=== PATIENT | female | born 1960 | race African-American/Black ===

== ENCOUNTER 2017-04-01 21:06 | Observation (INO) | payer MEDICARE, MEDICAID ==
--- NOTE | 2017-04-01 21:45 | ER Document Report ---
ED Cardiac - General Chief Complaint: Shortness Of Breath Stated Complaint: CHEST PAIN/SHORT OF BREATH Time Seen by Provider: 04/01/17 21:30 Notes: Patient is a 56-year-old female comes emergency department for chief complaint of worsening shortness of breath, especially on exertion, and also for chest pain that has been intermittent but seemed slightly worse just prior to arrival. Patient was given 2 sublingual nitroglycerin and a nitroglycerin patch along with 324 mg of aspirin by EMS reportedly, patient reports that she got no longer has chest pain. Patient also states that she has had worsening lower extremity swelling and at least 10 pounds of weight gain over the past week. She denies fever, cough, bowel pain. Patient states she is on 40 mg of Lasix daily and a half of another diuretic that she cannot remember the name of. Patient had a cardiac catheterization 2 years ago, had stents in 2004 and 2005, used to see [facility] for cardiology but states she has not done this in a couple of years. TRAVEL OUTSIDE OF THE [place] IN LAST 30 DAYS: No - Related Data Allergies/Adverse Reactions: Penicillins Allergy (Verified 05/27/14 19:10) Home Medications: Current Home Medications Alogliptin Rock/Pioglitazone [Oseni 25-30 mg Tablet] 1 tab PO DAILY 04/02/17 [ History] Insulin NPL/Insulin Lispro [Humalog Mix 75-25 Kwikpen] 60 units SUBCUT BID 04/02 [History] Oxycodone HCl/Acetaminophen [Oxycodon-Acetaminophen 7.5-325] 1 tab PO TID PRN [History] RX: Cyclobenzaprine HCl 10 mg PO TID 04/02/17 [History] RX: Spironolactone 12.5 mg PO DAILY 04/02/17 [History] Past Medical History - General Information source: Patient - Social History Smoking Status: Never Smoker Frequency of alcohol use: None Drug Abuse: None Lives with: Family Family History: Reviewed & Not Pertinent - Past Medical History Cardiac Medical History: Reports: Hx Congestive Heart Failure, Hx Heart Attack - HAD 2 IN 2004, Hx Hypercholesterolemia - SINCE 2001, Hx Hypertension - SINCE LATE Pulmonary Medical History: Reports: Hx Asthma, Hx Bronchitis - HAD OVER 10 YRS, Hx COPD Endocrine Medical History: Reports: Hx Diabetes Mellitus Type 2 Psychiatric Medical History: Reports: Hx Depression - IN 1990'S OVER IT NOW Past Surgical History: Reports: Hx Abdominal Surgery - C SECTION OCT 1997, Hx Cardiac Catheterization - MAY 2010, Hx Tonsillectomy - REMOVE AT AGE 12. Denies: Hx Adenoidectomy - Immunizations Immunizations up to date: No Hx Diphtheria, Pertussis, Tetanus Vaccination: No Review of Systems - Review of Systems Constitutional: No symptoms reported EENT: No symptoms reported Cardiovascular: See HPI Respiratory: See HPI Gastrointestinal: No symptoms reported Genitourinary: No symptoms reported Female Genitourinary: No symptoms reported Musculoskeletal: No symptoms reported Skin: No symptoms reported Hematologic/Lymphatic: No symptoms reported Neurological/Psychological: No symptoms reported Physical Exam - Vital signs Vitals: Temp Pulse Resp BP Pulse Ox 98.2 F 93 22 H 189/125 H 95 04/01/17 21:40 04/01/17 21:40 04/01/17 21:40 04/01/17 21:40 04/01/17 21:40 Interpretation: Normal - General General appearance: Appears well In distress: None - HEENT Head: Normocephalic, Atraumatic Eyes: Normal Conjunctiva: Normal Extraocular movements intact: Yes Eyelashes: Normal Pupils: PERRL Sinus: Normal Nasal: Normal Mouth/Lips: Normal Mucous membranes: Normal Pharynx: Normal Neck: Normal - Respiratory Respiratory status: Tachypnea. No: Labored Chest status: Nontender Breath sounds: Decreased air movement, Other - A few scattered coarse breath sounds Chest palpation: Normal - Cardiovascular Rhythm: Regular. No: Tachycardia Heart sounds: Normal auscultation, S1 appreciated, S2 appreciated Murmur: No - Abdominal Inspection: Normal Distension: No distension Bowel sounds: Normal Tenderness: Nontender. No: Tender, Guarding Organomegaly: No organomegaly - Back Back: Normal, Nontender. No: Tender - Extremities General upper extremity: Normal inspection, Nontender, Normal color, Normal ROM , Normal temperature General lower extremity: Edema - Bilateral 2+ lower extremity pitting edema, normal distal pulses and capillary refill, unremarkable examination otherwise - Neurological Neuro grossly intact: Yes Cognition: Normal Orientation: AAOx4 [place] Coma Scale Eye Opening: Spontaneous [place] Coma Scale Verbal: Oriented [place] Coma Scale Motor: Obeys Commands Harsh Coma Scale Total: 15 Speech: Normal Cranial nerves: Normal Cerebellar coordination: Normal Motor strength normal: LUE, RUE, LLE, RLE Additional motor exam normals: Equal director of purchasing Sensory: Normal - Psychological Associated symptoms: Normal affect, Normal mood - Skin Skin Temperature: Warm Skin Moisture: Dry Skin Color: Normal Course - Re-evaluation Re-evalutation: Patient with lower extremity edema bilaterally, mostly clear lungs with a few coarse breath sounds, and she is hypertensive. No fever, tachycardia, leukocytosis. Clinical picture is most likely CHF exacerbation. BNP is not elevated, chest x-ray shows what appears to be pneumonia with no evidence of pulmonary vascular congestion. I did get patient up to have her stand and walk, she immediately became tachypneic with labored pursed lip breathing. Patient states this is not her baseline. Giving dose of Levaquin, Lasix, discussed with Dr. Gonzalez, will discuss patient's provider. Discussed with Dr. Brown, patient will be admitted to the hospital. - Vital Signs Vital signs: Temp Pulse Resp BP Pulse Ox 97.8 F 62 20 140/84 H 95 04/02/17 02:24 04/02/17 02:24 04/02/17 02:24 04/02/17 02:24 04/02/17 02:24 - Laboratory Result Diagrams: 04/01/17 21:51 04/01/17 21:51 Laboratory results interpreted by me: 04/01/17 04/01/17 04/01/17 21:32 21:51 21:51 RDW 14.1 H Sodium 145.3 H Carbon Dioxide 31 H Glucose 149 H Direct Bilirubin 0.5 H Alkaline Phosphatase 127 H Urine Protein 100 H Discharge - Discharge Clinical Impression: Shortness of breath, Bilateral lower extremity edema Chest pain Qualifiers: Chest pain type: unspecified Qualified Code(s): R07.9 - Chest pain, unspecified Pneumonia Qualifiers: Pneumonia type: due to unspecified organism Laterality: right Lung location: lower lobe of lung Qualified Code(s): J18.1 - Lobar pneumonia, unspecified organism Disposition: ADMITTED INPATIENT Admitting Provider: Hospitalist Unit Admitted: Telemetry
[2017-04-01] MEDS ORDERED: METOPROLOL SUCCINATE 50 MG TAB.SR.24H PO ONE (22:01)
[2017-04-01 22:02] LABS: APPEARANCE,URINE SLIGHTLY-CLOUDY; BILIRUBIN,URINE NEGATIVE (NEGATIVE); GLUCOSE, URINE NEGATIVE (NEGATIVE); KETONES,URINE NEGATIVE (NEGATIVE); LEUKOCYTE ESTERASE,URINE NEGATIVE (NEGATIVE); NITRITE,URINE NEGATIVE (NEGATIVE); PROTEIN,URINE 100 mg/dL (NEGATIVE); URINE SPECIFIC GRAVITY 1.013; UROBILINOGEN,URINE NEGATIVE mg/dL (<2.0)
[2017-04-01] MEDS ORDERED: CLONIDINE HCL 0.2 MG TABLET PO ONE (22:02)
[2017-04-01] MEDS ORDERED: AMLODIPINE BESYLATE 10 MG TABLET PO ONE (22:02)
[2017-04-01 22:07] LABS: ABSOLUTE EOSINOPHILS # (AUTO) 0.2 10^3/uL (0.0-0.6); ABSOLUTE LYMPHOCYTES (AUTO) 1.1 10^3/uL (0.5-4.7); ABSOLUTE MONOCYTES (AUTO) 0.5 10^3/uL (0.1-1.4); ABSOLUTE NEUT (AUTO) 6.5 10^3/uL (1.7-8.2); BASOPHILS % (AUTO) 0.5 % (0-2); EOSINOPHILS % (AUTO) 2.7 % (0-6); HEMATOCRIT 40.9 % (36.0-47.0); HEMOGLOBIN 13.5 g/dL (12.0-15.5); HGB HCT DIFFERENCE -0.4; LYMPHOCYTES % (AUTO) 13.3 % (13-45); MEAN CORPUSCULAR HEMOGLOBIN 30.6 pg (27.0-33.4); MEAN CORPUSCULAR HGB CONC 32.9 g/dL (32.0-36.0); MEAN CORPUSCULAR VOLUME 93 fl (80-97); MONOCYTES % (AUTO) 5.5 % (3-13); RED BLOOD COUNT 4.41 10^6/uL (3.72-5.28); RED CELL DISTRIBUTION WIDTH 14.1 % (11.5-14.0); WHITE BLOOD COUNT 8.3 10^3/uL (4.0-10.5)
[2017-04-01 22:26] LABS: ALANINE AMINOTRANSFERASE 37 U/L (9-52); ALKALINE PHOSPHATASE 127 U/L (38-126); ANION GAP 10 (5-19); ASPARTATE AMINO TRANSFERASE 20 U/L (14-36); BILIRUBIN,DIRECT 0.5 mg/dL (0.0-0.4); BILIRUBIN,TOTAL 0.7 mg/dL (0.2-1.3); BLOOD UREA NITROGEN 14 mg/dL (7-20); CALCIUM 10.1 mg/dL (8.4-10.2); CARBON DIOXIDE 31 mmol/L (22-30); CHLORIDE 104 mmol/L (98-107); CREATINE KINASE 48 U/L (30-135); CREATININE RESULT 0.74 mg/dL (0.52-1.25); GLUCOSE 149 mg/dL (75-110); POTASSIUM 4.2 mmol/L (3.6-5.0); SODIUM 145.3 mmol/L (137-145); TOTAL PROTEIN 7.6 g/dL (6.3-8.2)
[2017-04-01 22:41] LABS: TROPONIN I < 0.012 ng/mL
[2017-04-01] MEDS ORDERED: LEVOFLOXACIN 750 MG/D5W RTU 150 ML IV ONE (22:52)
[2017-04-01] MEDS ORDERED: FUROSEMIDE INJ/PF 40 MG/4 ML SDV IV ONE (23:09)
[2017-04-02] MEDS ORDERED: IPRATROPIUM/ALBUTEROL 0.5-2.5 MG/3 ML AMPUL NEB PRN (02:34)
[2017-04-02] MEDS ORDERED: DEXTROSE 40% GEL 15 GM TUBE PO PRN (02:36)
[2017-04-02] MEDS ORDERED: DEXTROSE 50%-WATER SYRINGE 25 GM/50 ML DOSE IV PRN (02:36)
[2017-04-02] MEDS ORDERED: GLUCAGON,HUMAN RECOMB 1 MG INJ IM PRN (02:36)
[2017-04-02] MEDS ORDERED: DEXTROSE 40% GEL 15 GM TUBE X 2 PO PRN (02:36)
[2017-04-02] MEDS ORDERED: DEXTROSE 50%-WATER SYRINGE 12.5 GM/25 ML DOSE IV PRN (02:36)
[2017-04-02] MEDS ORDERED: NITROGLYCERIN 0.4 MG/TAB 25 TAB/BOTTLE SL PRN (04:18)
[2017-04-02] MEDS ORDERED: OXYCODONE HCL IR 5 MG TABLET PO PRN (04:32)
[2017-04-02] MEDS: CYCLOBENZAPRINE HCL 10 MG TABLET PO SCH ×3 (06:39→21:46)
[2017-04-02] MEDS: METFORMIN HCL 500 MG TABLET PO SCH ×2 (08:27→17:59)
[2017-04-02] MEDS ORDERED: [UNRECOGNIZED DRUG - REMARK] PO SCH (10:00)
[2017-04-02] MEDS ORDERED: INSULIN LISPRO PROTAMINE SUBCUT SCH (10:00)
[2017-04-02] MEDS ORDERED: (PENDING PHARMACY ID) (Alogliptin Benz/Pioglitazone [Oseni 25-30 Mg Tablet] 1 TAB) PO SCH (10:00)
[2017-04-02] MEDS ORDERED: INSULIN LISPRO SUBCUT SCH (10:00)
[2017-04-02] MEDS: GLIPIZIDE XL 5 MG TAB.ER.24 PO SCH ×2 (10:35→17:58)
[2017-04-02] MEDS: ASPIRIN 325 MG TABLET PO SCH (10:35)
[2017-04-02] MEDS: ISOSORBIDE DINITRATE 20 MG TABLET PO SCH ×2 (10:36→21:46)
[2017-04-02] MEDS: PRENATAL VITAMIN W-O CA NO5/FE FUMARATE/FA CAPSULE PO SCH (10:36)
[2017-04-02] MEDS: METOPROLOL SUCCINATE 50 MG TAB.SR.24H PO SCH ×2 (10:36→21:46)
[2017-04-02] MEDS: CLONIDINE HCL 0.2 MG TABLET PO SCH ×2 (10:36→21:46)
[2017-04-02] MEDS: SPIRONOLACTONE 25 MG TABLET PO SCH (10:37)
[2017-04-02] MEDS: CLOPIDOGREL BISULFATE 75 MG TABLET PO SCH (10:37)
[2017-04-02] MEDS: AMLODIPINE BESYLATE 10 MG TABLET PO SCH (10:37)
[2017-04-02] MEDS: PREGABALIN 100 MG CAPSULE PO SCH ×3 (10:37→17:59)
--- NOTE | 2017-04-02 13:14 | EKG REPORT ---
SEVERITY:- BORDERLINE ECG - SINUS RHYTHM BORDERLINE PROLONGED QT INTERVAL : Confirmed by: Jennifer Dorsey 02-Apr-2017 13:14:07
[2017-04-02 13:27] LABS: HEMATOCRIT 39.3 % (36.0-47.0); HEMOGLOBIN 12.7 g/dL (12.0-15.5); HGB HCT DIFFERENCE -1.2; MEAN CORPUSCULAR HEMOGLOBIN 30.5 pg (27.0-33.4); MEAN CORPUSCULAR HGB CONC 32.3 g/dL (32.0-36.0); MEAN CORPUSCULAR VOLUME 95 fl (80-97); RED BLOOD COUNT 4.15 10^6/uL (3.72-5.28); RED CELL DISTRIBUTION WIDTH 14.1 % (11.5-14.0); WHITE BLOOD COUNT 6.8 10^3/uL (4.0-10.5)
[2017-04-02 13:31] LABS: PROTHROMBIN TIME 12.9 SEC (11.4-15.4)
[2017-04-02 13:32] LABS: PARTIAL THROMBOPLASTIN TIME 27.8 SEC (23.5-35.8)
[2017-04-02] MEDS ORDERED: ENOXAPARIN SODIUM INJ 40 MG/0.4 ML DISP.SYRIN SUBCUT ONE (14:00)
[2017-04-02] MEDS: NORMAL SALINE 250 ML with FUROSEMIDE 250 MG IV PRN ×2 (15:06)
[2017-04-02] MEDS: INSULIN REG, HUMAN 100 UNIT/ML 3 ML VIAL (PYX) SUBCUT PRN (17:58)
[2017-04-02 18:26] LABS: URINE CREATININE 45.6 mg/dL (15-278); URINE PROTEIN 10.5 mg/dL (<12)
[2017-04-02] MEDS ORDERED: LIDOCAINE 1% INJ-PF (10 MG/ML) 30 ML SDV INJ ONE (20:00)
--- NOTE | 2017-04-02 21:43 | OPERATIVE REPORT E ---
Operative Report NAME: JACKIE CRUZ : 1960 AGE: 56Y DATE OF SURGERY: 04/02/2017 ROOM: 414 PREOPERATIVE DIAGNOSIS: Poor veins for IV access. Congestive heart failure. POSTOPERATIVE DIAGNOSIS: Poor veins for IV access. Congestive heart failure. OPERATION: Placement of right internal jugular vein triple lumen catheter under ultrasound guidance. SURGEON: IGOR WINKLER M.D. ANESTHESIA: Local. INDICATION: This is a 56-year-old female, admitted for CHF and needed IV medications for diuresis. She is quite obese and unable to get peripheral veins for IV access. DESCRIPTION OF PROCEDURE: The patient was placed in slight Trendelenburg position and the right neck prepped and draped in the usual sterile fashion. With the use of ultrasound, right internal jugular vein was then identified. Local anesthesia infiltrated along the right neck through the path of the internal jugular vein. The right internal jugular vein was then punctured and guidewire passed through the needle into the superior vena cava. Needle was removed and entrance site was enlarged with an 11 blade. A dilator was then passed through the guidewire through the insertion site. Next, dilator was removed and triple lumen catheter inserted through the guidewire towards the area of the superior vena cava. About 17 cm of the guidewire was placed through. The 3 ports aspirated blood easily and injected saline easily. Next, the catheter was anchored to the skin with 3-0 silk. A Biopatch was then placed at the insertion site and a transparent dressing was then placed over the catheter and over the Biopatch. The patient tolerated the procedure well. A chest x-ray will be obtained for placement. DICTATING PHYSICIAN: IGOR WINKLER M.D. [id number] PHY#: [id number] ID: [id number] JOB#: [id number] ACCT: [id number] cc:IGOR WINKLER M.D. >
[2017-04-02] MEDS: ATORVASTATIN CALCIUM 40 MG TABLET PO SCH (21:46)
[2017-04-02] MEDS ORDERED: LEVOFLOXACIN 750 MG/D5W RTU 750 MG/150 ML RTUPB IV SCH (22:00)
[2017-04-02] MEDS: LEVOFLOXACIN 750 MG/D5W RTU 750 MG/150 ML RTUPB IV SCH (22:26)
[2017-04-02] MEDS: OXYCODONE-ACETAMINOPHEN 5-325 MG TABLET PO PRN (22:28)
[2017-04-03] MEDS: CYCLOBENZAPRINE HCL 10 MG TABLET PO SCH ×3 (06:29→21:39)
[2017-04-03] MEDS: ENOXAPARIN SODIUM INJ 40 MG/0.4 ML DISP.SYRIN SUBCUT SCH (07:46)
[2017-04-03] MEDS: NORMAL SALINE 250 ML with FUROSEMIDE 250 MG IV PRN ×4 (07:47→21:04)
[2017-04-03] MEDS: METFORMIN HCL 500 MG TABLET PO SCH ×2 (07:47→17:10)
[2017-04-03] MEDS: OXYCODONE-ACETAMINOPHEN 5-325 MG TABLET PO PRN ×2 (08:02→23:28)
[2017-04-03] MEDS: ASPIRIN 325 MG TABLET PO SCH (10:02)
[2017-04-03] MEDS: PRENATAL VITAMIN W-O CA NO5/FE FUMARATE/FA CAPSULE PO SCH (10:02)
[2017-04-03] MEDS: PREGABALIN 100 MG CAPSULE PO SCH ×3 (10:02→17:10)
[2017-04-03] MEDS: ISOSORBIDE DINITRATE 20 MG TABLET PO SCH ×2 (10:03→21:39)
[2017-04-03] MEDS: AMLODIPINE BESYLATE 10 MG TABLET PO SCH (10:03)
[2017-04-03] MEDS: SPIRONOLACTONE 25 MG TABLET PO SCH (10:03)
[2017-04-03] MEDS: GLIPIZIDE XL 5 MG TAB.ER.24 PO SCH ×2 (10:03→17:10)
[2017-04-03] MEDS: CLOPIDOGREL BISULFATE 75 MG TABLET PO SCH (10:04)
[2017-04-03] MEDS: CLONIDINE HCL 0.2 MG TABLET PO SCH ×2 (10:04→21:39)
[2017-04-03] MEDS: METOPROLOL SUCCINATE 50 MG TAB.SR.24H PO SCH ×2 (10:04→21:39)
[2017-04-03 11:54] LABS: ANION GAP 11 (5-19); BLOOD UREA NITROGEN 18 mg/dL (7-20); CALCIUM 10.2 mg/dL (8.4-10.2); CARBON DIOXIDE 35 mmol/L (22-30); CHLORIDE 97 mmol/L (98-107); CREATININE RESULT 0.92 mg/dL (0.52-1.25); GLUCOSE 165 mg/dL (75-110); POTASSIUM 3.6 mmol/L (3.6-5.0); SODIUM 142.6 mmol/L (137-145)
[2017-04-03] MEDS: INSULIN REG, HUMAN 100 UNIT/ML 3 ML VIAL (PYX) SUBCUT PRN (12:11)
--- NOTE | 2017-04-03 14:31 | PDOC H&P ---
History of Present Illness Admission Date/PCP: 04/02/17 02:23 HENNA VAZQUEZ MD History of Present Illness: JACKIE CRUZ is a 56 year old female with history of type 2 diabetes mellitus, morbid obesity with body mass index 56, she came to the emergency room because of cough shortness of breath and chest pain. She stated that many members of household have pneumonia. She is concerned that she may have pneumonia, she was seen and evaluated in the emergency room, chest x-ray was done, it showed a new patchy right lower lobe airspace disease concerning for pneumonia. The other problem with this patient is the anasarca, she has tremendous retention of fluid most likely related to the obesity as indicated a body mass index is 56. Past Medical History Cardiac Medical History: Reports: Myocardial Infarction - HAD 2 IN 2004, Hyperlipidema - SINCE 2001, Hypertension - SINCE LATE Pulmonary Medical History: Reports: Asthma, Bronchitis - HAD OVER 10 YRS, Chronic Obstructive Pulmonary Disease (COPD) Endocrine Medical History: Reports: Diabetes Mellitus Type 2, Obesity Psychiatric Medical History: Reports: Depression - IN OVER IT NOW Past Surgical History Past Surgical History: Reports: Cardiac Catheterization - MAY 2010, Tonsillectomy - REMOVE AT AGE 12 Social History Lives with: Family Smoking Status: Former Smoker Number of Years Smokin Frequency of Alcohol Use: Occasional Hx Recreational Drug Use: No Hx Prescription Drug Abuse: No Family History Family History: Reviewed & Not Pertinent Parental Family History Reviewed: Yes Children Family History Reviewed: Yes Sibling(s) Family History Reviewed.: Yes Medication/Allergy Home Medications: Glipizide [Glipizide ER] 10 mg PO BID 03/30/12 Metformin HCl [Glucophage 1000 mg Tablet] 1,000 mg PO BIDACBSP PRN 03/30/12 Nitroglycerin [Nitrostat 0.4 mg (1/150 Gr) Tabs 25/Bottle] 0.4 mg SL Q8H PRN Aspirin [Aspirin 325 mg Tablet] 325 mg PO DAILY 05/27/14 Clonidine HCl [Catapres 0.2 mg Tablet] 0.2 mg PO Q12 05/27/14 Clopidogrel Bisulfate [Plavix 75 mg Tablet] 75 mg PO DAILY 05/27/14 Isosorbide Dinitrate [Isordil Titradose 20 mg Tablet] 20 mg PO Q12 05/27/14 Metoprolol Succinate 50 mg PO Q12 05/27/14 Alogliptin Rock/Pioglitazone [Oseni 25-30 mg Tablet] 1 tab PO DAILY 04/02/17 Amlodipine Besylate [Norvasc 10 mg Tablet] 10 mg PO DAILY 04/02/17 Cyclobenzaprine HCl 10 mg PO TID 04/02/17 Furosemide [Lasix] 40 mg PO DAILY 04/02/17 Insulin NPL/Insulin Lispro [Humalog Mix 75-25 Kwikpen] 60 units SUBCUT BID 04/02 Lisinopril [Prinivil 40 mg Tablet] 40 mg PO DAILY 04/02/17 Oxycodone HCl/Acetaminophen [Oxycodon-Acetaminophen 7.5-325] 1 tab PO TID PRN Pregabalin [Lyrica 100 Mg Capsule] 100 mg PO Q12 04/02/17 Spironolactone 12.5 mg PO DAILY 04/02/17 Allergies/Adverse Reactions: Penicillins Allergy (Verified 05/27/14 19:10) Review of Systems Constitutional: PRESENT: chills, fever(s) Eyes: ABSENT: visual disturbances Ears: ABSENT: hearing changes Cardiovascular: ABSENT: chest pain, dyspnea on exertion, edema, orthropnea, palpitations Respiratory: PRESENT: cough Gastrointestinal: ABSENT: abdominal pain, constipation, diarrhea, hematemesis, hematochezia, nausea, vomiting Genitourinary: ABSENT: dysuria, hematuria Musculoskeletal: ABSENT: joint swelling Integumentary: ABSENT: rash, wounds Neurological: ABSENT: abnormal gait, abnormal speech, confusion, dizziness, focal weakness, syncope Psychiatric: ABSENT: anxiety, depression, homidical ideation, suicidal ideation Endocrine: ABSENT: cold intolerance, heat intolerance, menstrual abnormalities, polydipsia, polyuria Hematologic/Lymphatic: ABSENT: easy bleeding, easy bruising, lymphadenopathy Physical Exam Vital Signs: Temp Pulse Resp BP Pulse Ox 98.2 F 80 24 H 146/77 H 95 04/03/17 08:07 04/03/17 08:07 04/03/17 08:07 04/03/17 08:07 04/03/17 04:00 Intake & Output 04/02/17 04/03/17 04/04/17 06:59 06:59 06:59 Intake Total 1352 Output Total 1200 Balance 152 Weight 145.15 kg 163.8 kg General appearance: PRESENT: no acute distress, well-developed, well-nourished Head exam: PRESENT: atraumatic, normocephalic Eye exam: PRESENT: conjunctiva pink, EOMI, PERRLA. ABSENT: scleral icterus Ear exam: PRESENT: normal external ear exam Mouth exam: PRESENT: moist, tongue midline Neck exam: PRESENT: full ROM. ABSENT: carotid bruit, JVD, lymphadenopathy, thyromegaly Cardiovascular exam: PRESENT: RRR, +S1, +S2 Vascular exam: PRESENT: normal capillary refill GI/Abdominal exam: PRESENT: normal bowel sounds, soft, other - Obese Rectal exam: PRESENT: deferred Extremities exam: PRESENT: pedal edema Neurological exam: PRESENT: alert, awake, oriented to person, oriented to place , oriented to time, oriented to situation, CN II-XII grossly intact Psychiatric exam: PRESENT: appropriate affect, normal mood Skin exam: PRESENT: dry, intact, warm Results Laboratory Results: 04/02/17 13:10 04/03/17 10:50 04/03/17 10:50 Sodium 142.6 Potassium 3.6 Chloride 97 L Carbon Dioxide 35 H Anion Gap 11 BUN 18 Creatinine 0.92 Est GFR ( Amer) > 60 Est GFR (Non-Af Amer) > 60 Glucose 165 H Calcium 10.2 04/02/17 06:40 Nasophary (Mrsa Only) MRSA Surveillance Culture - Final NO MRSA RECOVERED Impressions: Chest X-Ray 04/02/17 21:17 IMPRESSION: 1. CENTRAL LINE DESCRIBED. NO PNEUMOTHORAX. 2. CARDIOMEGALY. SLIGHT WORSENING OF THE PATCHY INFILTRATE IN THE RIGHT LUNG BASE. Assessment & Plan - Diagnosis (1) Right lower lobe pneumonia Qualifiers: Pneumonia type: due to unspecified organism Qualified Code(s): J18.1 - Lobar pneumonia, unspecified organism Is this a current diagnosis for this admission?: YesPlan: She will be treated with IV antibiotic to cover community-acquired pneumonia pathogens, she has penicillin allergy, she will be treated with intravenous Levaquin this week, most community-acquired pneumonia pathogens. (2) Anasarca Is this a current diagnosis for this admission?: YesPlan: The anasarca is related to the obesity there is no evidence of CHF no evidence of liver failure, nephrotic syndrome or thyroid disease to explain the extreme retention of fluid other than body weight, she be treated with furosemide infusion to help mobilize the fluid but ultimately the most effective and definitive way to treat this is weight loss. She was referred to the surgeon outpatient to be considered for weight loss surgery (3) Diabetes mellitus type 2 in obese Is this a current diagnosis for this admission?: Yes (4) History of coronary artery disease Is this a current diagnosis for this admission?: Yes (5) Obesity, morbid, BMI 50 or higher Is this a current diagnosis for this admission?: Yes (6) Obstructive sleep apnea hypopnea, moderate Is this a current diagnosis for this admission?: Yes
--- NOTE | 2017-04-03 14:35 | PDOC PROGRESS REPORT ---
Subjective Progress Note for:: 04/03/17 Subjective:: She was seen by the bedside, presently on furosemide infusion, yesterday IV access was a challenge and central line was inserted by the surgeon. She is requesting a Jovel catheter but I indicated to her that is not a good idea because of risk of UTI. She is admitted for observation she has been diuresing very well with the furosemide infusion we will continue this for another day Physical Exam Vital Signs: Temp Pulse Resp BP Pulse Ox 98.2 F 78 24 H 146/77 H 95 04/03/17 08:07 04/03/17 14:00 04/03/17 08:07 04/03/17 08:07 04/03/17 04:00 Intake & Output 04/02/17 04/03/17 04/04/17 06:59 06:59 06:59 Intake Total 1352 Output Total 1200 Balance 152 Weight 145.15 kg 163.8 kg General appearance: PRESENT: no acute distress, well-developed, well-nourished Head exam: PRESENT: atraumatic, normocephalic Eye exam: PRESENT: PERRLA Neck exam: PRESENT: full ROM Respiratory exam: PRESENT: clear to auscultation michelle Cardiovascular exam: PRESENT: RRR, +S1, +S2 Vascular exam: PRESENT: normal capillary refill GI/Abdominal exam: PRESENT: normal bowel sounds, soft Rectal exam: PRESENT: deferred Neurological exam: PRESENT: alert, awake, oriented to person, oriented to place , oriented to time, oriented to situation, CN II-XII grossly intact Psychiatric exam: PRESENT: appropriate affect, normal mood Skin exam: PRESENT: dry, intact, warm Results Laboratory Results: 04/02/17 13:10 04/03/17 10:50 04/03/17 10:50 Sodium 142.6 Potassium 3.6 Chloride 97 L Carbon Dioxide 35 H Anion Gap 11 BUN 18 Creatinine 0.92 Est GFR ( Amer) > 60 Est GFR (Non-Af Amer) > 60 Glucose 165 H Calcium 10.2 04/02/17 06:40 Nasophary (Mrsa Only) MRSA Surveillance Culture - Final NO MRSA RECOVERED Impressions: Chest X-Ray 04/02/17 21:17 IMPRESSION: 1. CENTRAL LINE DESCRIBED. NO PNEUMOTHORAX. 2. CARDIOMEGALY. SLIGHT WORSENING OF THE PATCHY INFILTRATE IN THE RIGHT LUNG BASE. Assessment & Plan - Diagnosis (1) Right lower lobe pneumonia Qualifiers: Pneumonia type: due to unspecified organism Qualified Code(s): J18.1 - Lobar pneumonia, unspecified organism Is this a current diagnosis for this admission?: YesPlan: She will continue IV antibiotic (2) Anasarca Is this a current diagnosis for this admission?: YesPlan: Continue IV furosemide infusion (3) Diabetes mellitus type 2 in obese Is this a current diagnosis for this admission?: Yes (4) History of coronary artery disease Is this a current diagnosis for this admission?: Yes (5) Obesity, morbid, BMI 50 or higher Is this a current diagnosis for this admission?: Yes (6) Obstructive sleep apnea hypopnea, moderate Is this a current diagnosis for this admission?: Yes
[2017-04-03] MEDS: LEVOFLOXACIN 750 MG/D5W RTU 750 MG/150 ML RTUPB IV SCH (21:38)
[2017-04-03] MEDS: ATORVASTATIN CALCIUM 40 MG TABLET PO SCH (21:39)
[2017-04-04] MEDS: CYCLOBENZAPRINE HCL 10 MG TABLET PO SCH ×3 (05:34→21:58)
[2017-04-04] MEDS: ASPIRIN 325 MG TABLET PO SCH (10:31)
[2017-04-04] MEDS: SPIRONOLACTONE 25 MG TABLET PO SCH (10:32)
[2017-04-04] MEDS: PRENATAL VITAMIN W-O CA NO5/FE FUMARATE/FA CAPSULE PO SCH (10:32)
[2017-04-04] MEDS: PREGABALIN 100 MG CAPSULE PO SCH ×3 (10:32→17:44)
[2017-04-04] MEDS: ISOSORBIDE DINITRATE 20 MG TABLET PO SCH ×2 (10:33→21:59)
[2017-04-04] MEDS: METOPROLOL SUCCINATE 50 MG TAB.SR.24H PO SCH ×2 (10:33→21:57)
[2017-04-04] MEDS: METFORMIN HCL 500 MG TABLET PO SCH ×2 (10:33→17:44)
[2017-04-04] MEDS: CLONIDINE HCL 0.2 MG TABLET PO SCH ×2 (10:34→21:58)
[2017-04-04] MEDS: ENOXAPARIN SODIUM INJ 40 MG/0.4 ML DISP.SYRIN SUBCUT SCH (10:34)
[2017-04-04] MEDS: AMLODIPINE BESYLATE 10 MG TABLET PO SCH (10:34)
[2017-04-04] MEDS: GLIPIZIDE XL 5 MG TAB.ER.24 PO SCH ×2 (10:34→17:45)
[2017-04-04] MEDS: CLOPIDOGREL BISULFATE 75 MG TABLET PO SCH (10:34)
--- NOTE | 2017-04-04 11:24 | Physician Advisory Note ---
Physician Advisor ProgressNote .: [facility], I have reviewed the medical record for this patient. Physician Advisor Statement: Possible documentation opportunities if attending agrees: 1. "RLL Pneumonia, suspect ____" [gram-positive? gram-negative? - has COPD & DM-2, so could have gram-neg ...] - "CAP" isn't specific enough type for coding. 2. "Hypertensive urgency, resolved" [vs "Hypertensive emergency with associated CP/SOB [+acute CHF?], resolved"] 3. "acute hypernatremia, suspect due to , now resolved" 4. ? - "Acute hypercarbic respiratory failure on arrival, w/bicarb 31, tachypnea w/labored pursed lip breathing with minimal ambulation in ED even after tx" 5. "chronic __ CHF" [systolic? diastolic? both? ...] 6. Medical necessity: Please document explicitly why pt needed to stay for continued tx in hospital on 04/03 instead of going home then - pt not yet back to baseline? b/c of continued tachypnea? still high risk of worsening resp status/CHF exacerb? waiting for another day on cx.s? concerned about I/Os & wts? ... 7. H&P is missing lung exam. As always, if concerned about any unstable VS or abnormal labs, please comment on them - what bad things they might indicate, why they concern you - & note what doing about them. Please also document each day the potential clinical problems you are concerned could occur if pt not kept in hospital for tx at this time. (These points are shea - if present in each note, attending's status decision should be sufficiently supported.) Discussion: 56yo female w/ chronic co-morbidities including chronic __ CHF, HTN, HLD, CAD/ stents, asthma, COPD, DM-2, obesity morbid, ELLIS/CPAP - presented 04/01 to ED w/CP & SOB worsening, 10# wt gain/1wk, increasing BLE edema, recent exposure to others w/PNA. EMS gave 2 SL NTG, NTPatch, ASA -> CP resolved. (+) BP still 189/125 on arrival even after all the NTG, w/HR 90s, RR22. Na 145.3, bicarb 31, Cr 0.74, glc 149. ED gave Amlodipine, clonidine, Lasix, Levaquin, metoprolol, O2. Attending ordered Lasix gtt, ISDN, IV Levaquin, Aldactone, Duonebs prn, F/u labs , CPAP, O2. Status: Medicare pt w/RLL PNA, concerning co-morbidities that increase risk for morbidity & mortality including COPD/asthma, chronic __ CHF, acute hypertensive crisis (HTN urg or emerg), CAD, ELLIS, morbid obesity, anasarca, with possible acute hypercarbic resp failure, labored breathing in ED/continued worse than baseline even after tx in ED. On 04/03, pt w/ wt documented as 164, nearly 20 pounds greater than on admission , with documented I/Os appearing net (+), not net (-), no indication of unmeasured voids - but attending documented pt "diuresing very well", so I/Os & wts may not be accurate? On 04/04, pt documented to have 4 unmeasured voids, no calculated I/Os so far. Even after 2 MNs in hospital undergoing tx, attending still felt on 04/03 that pt needed continued IV Lasix diuresis for another day. Pt was still tachypneic to 24 at times that AM so she did not yet have stable VS. Tx & monitoring in inpatient hospital setting medically reasonable & necessary to protect pt's health, safety, & medical condition. Appropriate for Inpt status. Thanks for your help with documentation accuracy/specificity improvement! Sapna Almendarez MD [facility] Physician Advisor, Fellow of Hospital Medicine
[2017-04-04] MEDS: OXYCODONE-ACETAMINOPHEN 5-325 MG TABLET PO PRN ×2 (13:26→21:56)
[2017-04-04] MEDS: NORMAL SALINE 250 ML with FUROSEMIDE 250 MG IV PRN ×2 (13:32)
[2017-04-04 21:24] LABS: ANION GAP 9 (5-19); BLOOD UREA NITROGEN 22 mg/dL (7-20); CALCIUM 9.1 mg/dL (8.4-10.2); CARBON DIOXIDE 33 mmol/L (22-30); CHLORIDE 101 mmol/L (98-107); CREATININE RESULT 0.85 mg/dL (0.52-1.25); GLUCOSE 58 mg/dL (75-110); SODIUM 143.1 mmol/L (137-145)
[2017-04-04 21:26] LABS: POTASSIUM 2.8 mmol/L (3.6-5.0)
[2017-04-04] MEDS ORDERED: CLOTRIMAZOLE 10 MG TROCHE PO ONE (21:45)
[2017-04-04] MEDS: ATORVASTATIN CALCIUM 40 MG TABLET PO SCH (21:55)
[2017-04-04] MEDS ORDERED: NYSTATIN TOPICAL POWDER 15 GM TP SCH (22:00)
[2017-04-04] MEDS ORDERED: LEVOFLOXACIN 750 MG TABLET PO SCH (22:00)
[2017-04-05] MEDS: POTASSIUM CHLORIDE 10 MEQ TABLET.SA PO SCH ×3 (00:05→08:19)
[2017-04-05] MEDS: CYCLOBENZAPRINE HCL 10 MG TABLET PO SCH ×2 (06:35→14:42)
[2017-04-05] MEDS: OXYCODONE-ACETAMINOPHEN 5-325 MG TABLET PO PRN (06:35)
[2017-04-05] MEDS: CLOTRIMAZOLE 10 MG TROCHE PO SCH ×2 (08:02→14:42)
[2017-04-05] MEDS: ENOXAPARIN SODIUM INJ 40 MG/0.4 ML DISP.SYRIN SUBCUT SCH (08:02)
[2017-04-05] MEDS: METFORMIN HCL 500 MG TABLET PO SCH (08:02)
[2017-04-05] MEDS ORDERED: FLUCONAZOLE 100 MG TABLET PO SCH (10:00)
[2017-04-05 13:54] VITALS: BP 141/69
[2017-04-05] MEDS: PREGABALIN 100 MG CAPSULE PO SCH (14:42)
--- NOTE | 2017-04-05 16:47 | PDOC DISCHARGE SUMMARY ---
General - Admit/Disc Date/PCP Admission Date/Primary Care Provider: 04/02/17 02:23 HENNA VAZQUEZ MD Discharge Date: 04/05/17 - Discharge Diagnosis (1) Right lower lobe pneumonia Is this a current diagnosis for this admission?: Yes (2) Anasarca Is this a current diagnosis for this admission?: Yes (3) Diabetes mellitus type 2 in obese Is this a current diagnosis for this admission?: Yes (4) History of coronary artery disease Is this a current diagnosis for this admission?: Yes (5) Obesity, morbid, BMI 50 or higher Is this a current diagnosis for this admission?: Yes (6) Obstructive sleep apnea hypopnea, moderate Is this a current diagnosis for this admission?: Yes - Additional Information Discharge Activity: Activity As Tolerated Home Medications: RX: Glipizide [Glipizide ER] 10 mg PO BID 03/30/12 RX: Metformin HCl [Glucophage 1000 mg Tablet] 1,000 mg PO BIDACBSP PRN 03/30/12 RX: Nitroglycerin [Nitrostat 0.4 mg (1/150 Gr) Tabs 25/Bottle] 0.4 mg SL Q8H PRN 01/09/13 RX: Aspirin [Aspirin 325 mg Tablet] 325 mg PO DAILY 05/27/14 RX: Clonidine HCl [Catapres 0.2 mg Tablet] 0.2 mg PO Q12 05/27/14 RX: Clopidogrel Bisulfate [Plavix 75 mg Tablet] 75 mg PO DAILY 05/27/14 RX: Isosorbide Dinitrate [Isordil Titradose 20 mg Tablet] 20 mg PO Q12 05/27/14 RX: Metoprolol Succinate 50 mg PO Q12 05/27/14 RX: Alogliptin Rock/Pioglitazone [Oseni 25-30 mg Tablet] 1 tab PO DAILY RX: Amlodipine Besylate [Norvasc 10 mg Tablet] 10 mg PO DAILY 04/02/17 RX: Cyclobenzaprine HCl 10 mg PO TID 04/02/17 RX: Furosemide [Lasix] 40 mg PO DAILY 04/02/17 RX: Insulin NPL/Insulin Lispro [Humalog Mix 75-25 Kwikpen] 60 units SUBCUT BID 04/02/17 RX: Lisinopril [Prinivil 40 mg Tablet] 40 mg PO DAILY 04/02/17 RX: Oxycodone HCl/Acetaminophen [Oxycodon-Acetaminophen 7.5-325] 1 tab PO TID PRN 04/02/17 RX: Pregabalin [Lyrica 100 mg Capsule] 100 mg PO Q12 04/02/17 RX: Spironolactone 12.5 mg PO DAILY 04/02/17 Levofloxacin [Levaquin 750 mg Tablet] 750 mg PO DAILY #10 tab 04/04/17 History of Present Illness History of Present Illness: JACKIE CRUZ is a 56 year old female with history of type 2 diabetes mellitus, morbid obesity with body mass index 56, she came to the emergency room because of cough shortness of breath and chest pain. She stated that many members of household have pneumonia. She is concerned that she may have pneumonia, she was seen and evaluated in the emergency room, chest x-ray was done, it showed a new patchy right lower lobe airspace disease concerning for pneumonia. The other problem with this patient is the anasarca, she has tremendous retention of fluid most likely related to the obesity as indicated a body mass index is 56. Hospital Course Hospital Course: Patient was admitted because of a right lower lobe pneumonia and anasarca, she was treated with IV Levaquin and furosemide infusion she was admitted for observation she diuresed quite well with furosemide infusion the anasarca is weight related, she is morbidly obese and she was recently referred to bariatric surgeon to be considered for weight loss surgery. Physical Exam Vital Signs: Temp Pulse Resp BP Pulse Ox 98.4 F 79 20 141/69 H 93 04/05/17 12:00 04/05/17 12:00 04/05/17 12:00 04/05/17 12:00 04/05/17 12:00 Intake & Output 04/04/17 04/05/17 04/06/17 06:59 06:59 06:59 Intake Total 1994 2936 Output Total 900 1000 Balance 1094 1936 General appearance: PRESENT: no acute distress Head exam: PRESENT: atraumatic, normocephalic Neck exam: PRESENT: full ROM Respiratory exam: PRESENT: clear to auscultation michelle Cardiovascular exam: PRESENT: RRR, +S1, +S2 GI/Abdominal exam: PRESENT: normal bowel sounds, soft Rectal exam: PRESENT: deferred Neurological exam: PRESENT: alert, awake, oriented to person, oriented to place , oriented to time, oriented to situation, CN II-XII grossly intact. ABSENT: motor sensory deficit Psychiatric exam: PRESENT: appropriate affect, normal mood Skin exam: PRESENT: dry, intact, warm Results Laboratory Results: 04/02/17 13:10 04/04/17 20:25 04/04/17 20:25 Sodium 143.1 Potassium 2.8 L* Chloride 101 Carbon Dioxide 33 H Anion Gap 9 BUN 22 H Creatinine 0.85 Est GFR ( Amer) > 60 Est GFR (Non-Af Amer) > 60 Glucose 58 L Calcium 9.1 Impressions: Chest X-Ray 04/02/17 21:17 IMPRESSION: 1. CENTRAL LINE DESCRIBED. NO PNEUMOTHORAX. 2. CARDIOMEGALY. SLIGHT WORSENING OF THE PATCHY INFILTRATE IN THE RIGHT LUNG BASE.
[2017-04-05] MEDS ORDERED: PHARMACY COMMUNICATION ORDER MC SCH (18:00)
== END 2017-04-05 14:50 | disposition home or self-care (01) ==
LOC: ER 21:06 → EH 23:36 → UNDOADMOB 23:36 → OBSVTOIN 23:36 → INTOOBSV 23:36 → 4N 04-02 02:03 → EH 04-02 02:03 → 4N 04-02 02:23 → EH 04-02 02:23
PROVIDERS: ADMIT Internal Medicine; ATTEND Internal Medicine
PROC: 02HV33Z Insertion of Infusion Device into Superior Vena Cava, Percutaneous Approach (ICD-10-PCS; principal; 2017-04-02)
PROC: B548ZZA Ultrasonography of Superior Vena Cava, Guidance (ICD-10-PCS; 2017-04-02)
PROC: 5A09457 Assistance with Respiratory Ventilation, 24-96 Consecutive Hours, Continuous Positive Airway Pressure (ICD-10-PCS; 2017-04-02)
DX: J18.1 Lobar pneumonia, unspecified organism (principal); R60.1 Generalized edema; E11.9 Type 2 diabetes mellitus without complications; E66.01 Morbid (severe) obesity due to excess calories; Z68.43 Body mass index [BMI] 50.0-59.9, adult; I25.10 Atherosclerotic heart disease of native coronary artery without angina pectoris; G47.33 Obstructive sleep apnea (adult) (pediatric); E78.5 Hyperlipidemia, unspecified; I11.0 Hypertensive heart disease with heart failure; I50.9 Heart failure, unspecified; I25.2 Old myocardial infarction; Z79.84 Long term (current) use of oral hypoglycemic drugs; Z79.82 Long term (current) use of aspirin; Z79.02 Long term (current) use of antithrombotics/antiplatelets; Z79.899 Other long term (current) drug therapy; Z87.891 Personal history of nicotine dependence
CPT/HCPCS: 93005; 99285; 36415 ×3; 87040; 82553; 82962 ×4; 82550; 82565; 84156; 82570; 85025; 85027; 85610; 85730; 80048 ×2; 80053; 81001; 84484 ×2; 83880; 71010 ×2; 93010; 94660; 36558; 76937; G0378 ×4; C1751; A9270 ×47; J3490 ×3; J1940 ×3; J1650 ×4; J7050 ×3; J1956 ×2; J1642; J1815

== ENCOUNTER 2017-04-09 17:25 | Emergency (ER) | payer MEDICARE, MEDICAID ==
[2017-04-09 17:33] VITALS: BP 166/82
[2017-04-09] MEDS ORDERED: POLYMYXIN B SULFATE/TMP OPH SOLN (10 ML/ER DISP) OU PRN (18:17)
[2017-04-09] MEDS ORDERED: FLUCONAZOLE 100 MG TABLET PO ONE (18:17)
--- NOTE | 2017-04-09 18:24 | ER Document Report ---
HPI - HPI Patient complains to provider of: itchy throat, watery eyes Pain Level: 0 Context: Patient is a 56-year-old female presents emergency department complaining scratchy throat for about 1 week and watery eyes with redness. Patient states that she was admitted to the hospital on April 03 for pneumonia and was treated with antibiotics. She states that she was diagnosed with thrush started on Diflucan but with it. Any difficulty swallowing, difficulty breathing. States she has not had any fevers or chills. Office states that her eyes started earlier this morning. They have been itchy all day and was matted when she woke up this morning. Denies any vision changes - REPRODUCTIVE Reproductive: DENIES: : - DERM Skin Color: Normal Past Medical History - Social History Smoking Status: Former Smoker Family History: Reviewed & Not Pertinent Patient has suicidal ideation: No Patient has homicidal ideation: No - Past Medical History Cardiac Medical History: Reports: Hx Congestive Heart Failure, Hx Heart Attack - HAD 2 IN 2004, Hx Hypercholesterolemia - SINCE 2001, Hx Hypertension - SINCE LATE Pulmonary Medical History: Reports: Hx Asthma, Hx Bronchitis - HAD OVER 10 YRS, Hx COPD Endocrine Medical History: Reports: Hx Diabetes Mellitus Type 2 Renal/ Medical History: Denies: Hx Peritoneal Dialysis Psychiatric Medical History: Reports: Hx Depression - IN S OVER IT NOW Past Surgical History: Reports: Hx Abdominal Surgery - C SECTION OCT 1997, Hx Cardiac Catheterization - MAY 2010, Hx Tonsillectomy - REMOVE AT AGE 12. Denies: Hx Adenoidectomy - Immunizations Immunizations up to date: No Hx Diphtheria, Pertussis, Tetanus Vaccination: No Vertical Provider Document - CONSTITUTIONAL Agree With Documented VS: Yes Exam Limitations: No Limitations General Appearance: WD/WN, No Apparent Distress - INFECTION CONTROL TRAVEL OUTSIDE OF THE [place] IN LAST 30 DAYS: No - HEENT HEENT: Atraumatic, Conjuctival Injection, Normocephalic, PERRLA, Pharyngeal Erythema. negative: Pharyngeal Exudate, Pharyngeal Tenderness, Tympanic Membrane Red, Tympanic Membrane Bulging Notes: Uvula midline. Airway patent. No evidence of tonsillar enlargement, peritonsillar abscess, retropharyngeal abscess. Thrush noted on bilateral tonsils - NECK Neck: Normal Inspection. negative: Lymphadenopathy-Left, Lymphadenopathy-Right - RESPIRATORY Respiratory: Breath Sounds Normal, No Respiratory Distress, Chest Non-Tender O2 Sat by Pulse Oximetry: 90 - CARDIOVASCULAR Cardiovascular: Regular Rate, Regular Rhythm, No Murmur - NEURO Level of Consciousness: Awake, Alert, Appropriate Motor/Sensory: No Motor Deficit, No Sensory Deficit - DERM Integumentary: Warm, Dry, No Rash Course - Re-evaluation Re-evalutation: 04/09/17 19:49 Patient noted to still have thrush. Will start on Diflucan and discharge her home with this instructed to take for 2 weeks and follow-up with her primary care physician. Send patient home with Polytrim drops and can follow-up with primary care - Vital Signs Vital signs: Temp Pulse Resp BP Pulse Ox 98.3 F 98 20 166/82 H 90 L 04/09/17 17:31 04/09/17 17:31 04/09/17 17:31 04/09/17 17:31 04/09/17 17:31 Discharge - Discharge Clinical Impression: Oral candidiasis, Conjunctivitis Condition: Good Disposition: HOME, SELF-CARE Instructions: Oral Thrush ([facility]), Conjunctivitis ([facility]), Eyedrop Use ([facility]), Fluconazole ([facility]) Prescriptions: Fluconazole [Diflucan 100 Mg Tablet] 100 mg PO DAILY #14 tablet Forms: Elevated Blood Pressure Referrals: HENNA VAZQUEZ MD [Primary Care Provider] - Follow up as needed
== END 2017-04-09 18:32 | disposition home or self-care (01) ==
LOC: ER 17:25
DX: B37.0 Candidal stomatitis (principal); H10.9 Unspecified conjunctivitis; I25.2 Old myocardial infarction; I10 Essential (primary) hypertension; J44.9 Chronic obstructive pulmonary disease, unspecified; E11.9 Type 2 diabetes mellitus without complications; Z87.891 Personal history of nicotine dependence
CPT/HCPCS: 99282; J3490; A9270

== ENCOUNTER → 2017-04-26 | Outpatient (CLI) | payer MEDICARE, MEDICAID ==
--- NOTE | 2017-04-26 11:47 | WOMENS IMAGING REPORT ---
EXAM DESCRIPTION: BILAT SCREENING MAMMO W/CAD COMPLETED DATE/TIME: 04/26/2017 11:06 am REASON FOR STUDY: Z12.31, ROUTINE SCREENING MAMMO Z12.31 ENCNTR SCREEN MAMMOGRAM FOR MALIGNANT NEOP LASM OF SAV COMPARISON: Multiple since 2010 TECHNIQUE: Standard craniocaudal and mediolateral oblique views of each breast recorded using 5 Minutesa l acquisition. LIMITATIONS: None. FINDINGS: Findings present which are benign by mammographic criteria. No suspicious masses, calcifi cations or architectural distortion. Pertinent benign findings: Benign peripherally calcified oil cyst right breast 12 o'clock position, 9 to 10 mm in diameter. Read with the assistance of CAD. .[facility] [place] - R2 Cenova Version 1.3 .[facility] - R2 Cenova Version 1.3 .[facility] - R2 Cenova Version 2.4 .[facility] [place]2 Cenova Version 2.4 .[facility] - R2 Supervisor Photocomposition Version 9.2 Benign mammographic findings may include one or more of the following: Smooth masses, popcorn/rim/co arse calcifications, asymmetries, post-procedure changes, and lesions with long-standing stability. IMPRESSION: BENIGN MAMMOGRAPHIC FINDINGS. BIRADS 2 BREAST DENSITY: a. The breasts are almost entirely fatty. BIRAD: 2 BENIGN FINDING(S) RECOMMENDATION: ROUTINE SCREENING COMMENT: The patient has been notified of the results by letter per SA requirements. Additional no tification policies are in place for contacting patient with suspicious or incomplete findings. Quality ID #[id number]: The [employer] recommends an annual screening mammogram for women aged 40 years or over. This facility utilizes a reminder system to ensure that all patients receive reminder letters, and/or direct phone calls for appointments. This includes reminders for routine scr eening mammograms, diagnostic mammograms, or other Breast Imaging Interventions when appropriate. Th is patient will be placed in the appropriate reminder system. The [employer] ([employer]) has developed recommendations for screening MRI of the breast s in certain patient populations, to be used in conjunction with mammography. Breast MRI surveillanc e may be appropriate for women with more than 20% lifetime risk of developing breast cancer as deter mined by genetic testing, significant family history of the disease, or history of mantle radiation f or Hodgkins Disease. ACR Practice Guidelines 2008. TECHNICAL DOCUMENTATION: FINDING NUMBER: (1) ASSESSMENT: (1) JOB ID: [id number] [employer]- All Rights Reserved
== END ==
LOC: WI 10:29
PROVIDERS: ATTEND Internal Medicine
DX: Z12.31 Encounter for screening mammogram for malignant neoplasm of breast (principal)
CPT/HCPCS: 77067; G0202

== ENCOUNTER 2017-06-29 12:55 | Observation (INO) | payer MEDICARE, MEDICAID ==
[2017-06-29] MEDS ORDERED: ALBUTEROL SULFATE HFA (90 MCG/PUFF) 8 GM MDI (1 MDI/ER DISP) IH PRN (14:58)
[2017-06-29] MEDS ORDERED: (PENDING PHARMACY ID) (Oxycodone Hcl/Acetaminophen [Percocet 10-325 Mg Tablet] 1 TAB) PO PRN (14:58)
[2017-06-29] MEDS ORDERED: GLUCAGON,HUMAN RECOMB 1 MG INJ IM PRN (15:01)
[2017-06-29] MEDS ORDERED: (PENDING PHARMACY ID) (Beclomethasone Dipropionate [Qvar] 1 PUFF) IH PRN (15:01)
[2017-06-29] MEDS ORDERED: DEXTROSE 40% GEL 15 GM TUBE PO PRN (15:01)
[2017-06-29] MEDS ORDERED: DEXTROSE 50%-WATER SYRINGE 12.5 GM/25 ML DOSE IV PRN (15:01)
[2017-06-29] MEDS ORDERED: DEXTROSE 40% GEL 15 GM TUBE X 2 PO PRN (15:01)
[2017-06-29] MEDS ORDERED: DEXTROSE 50%-WATER SYRINGE 25 GM/50 ML DOSE IV PRN (15:01)
[2017-06-29] MEDS ORDERED: ALBUTEROL SULFATE HFA (90 MCG/PUFF) 200 PUFF/8.5 GM MDI IH PRN (15:14)
--- NOTE | 2017-06-29 15:17 | RADIOLOGY REPORT (SQ) ---
EXAM DESCRIPTION: CHEST SINGLE VIEW COMPLETED DATE/TIME: 06/29/2017 3:08 pm REASON FOR STUDY: SHORTNESS OF BREATH COMPARISON: 04/24/2013, 04/01/2017, 04/02/2017 chest films EXAM PARAMETERS: NUMBER OF VIEWS: One view. TECHNIQUE: Single frontal radiographic view of the chest acquired. RADIATION DOSE: NA LIMITATIONS: None. FINDINGS: LUNGS AND PLEURA: Mild pulmonary vascular prominence without alveolar or interstitial denise a. No pleural effusions. No pneumothorax. MEDIASTINUM AND HILAR STRUCTURES: No masses. Contour normal. HEART AND VASCULAR STRUCTURES: Stable cardiomegaly. BONES: No acute findings. HARDWARE: None in the chest. OTHER: No other significant finding. IMPRESSION: Mild pulmonary vascular prominence and cardiomegaly. No pulmonary edema. TECHNICAL DOCUMENTATION: JOB ID: [id number]
[2017-06-29] MEDS ORDERED: OXYCODONE HCL IR 5 MG TABLET PO PRN ×2 (15:24→15:25)
[2017-06-29 15:41] LABS: HEMATOCRIT 40.5 % (36.0-47.0); HEMOGLOBIN 13.1 g/dL (12.0-15.5); HGB HCT DIFFERENCE -1.2; MEAN CORPUSCULAR HGB CONC 32.4 g/dL (32.0-36.0); MEAN CORPUSCULAR VOLUME 96 fl (80-97); RED BLOOD COUNT 4.24 10^6/uL (3.72-5.28); RED CELL DISTRIBUTION WIDTH 14.4 % (11.5-14.0); WHITE BLOOD COUNT 6.6 10^3/uL (4.0-10.5)
[2017-06-29] MEDS ORDERED: METFORMIN HCL 500 MG TABLET PO SCH (16:00)
[2017-06-29] MEDS ORDERED: INSULIN LISPRO 100 UNIT/ML 3 ML VIAL SUBCUT PRN (16:00)
[2017-06-29 16:05] LABS: ALANINE AMINOTRANSFERASE 34 U/L (9-52); ALKALINE PHOSPHATASE 108 U/L (38-126); ANION GAP 8 (5-19); ASPARTATE AMINO TRANSFERASE 17 U/L (14-36); BILIRUBIN,DIRECT 0.4 mg/dL (0.0-0.4); BILIRUBIN,TOTAL 0.5 mg/dL (0.2-1.3); BLOOD UREA NITROGEN 17 mg/dL (7-20); CALCIUM 10.1 mg/dL (8.4-10.2); CARBON DIOXIDE 33 mmol/L (22-30); CHLORIDE 103 mmol/L (98-107); GLUCOSE 109 mg/dL (75-110); POTASSIUM 4.6 mmol/L (3.6-5.0); SODIUM 143.6 mmol/L (137-145); TOTAL PROTEIN 7.4 g/dL (6.3-8.2)
[2017-06-29] MEDS: NORMAL SALINE 250 ML with FUROSEMIDE 250 MG IV PRN ×2 (16:15)
[2017-06-29 16:38] LABS: THYROID STIMULATING HORMONE 2.1 uIU/mL (0.47-4.68)
[2017-06-29] MEDS ORDERED: INSULIN LISPRO SUBCUT SCH (18:00)
[2017-06-29] MEDS ORDERED: [UNRECOGNIZED DRUG - OTHER] SUBCUT SCH (18:00)
[2017-06-29] MEDS ORDERED: INSULIN LISPRO PROTAMINE SUBCUT SCH (18:00)
[2017-06-29 18:27] LABS: APPEARANCE,URINE SLIGHTLY-CLOUDY; BILIRUBIN,URINE NEGATIVE (NEGATIVE); GLUCOSE, URINE NEGATIVE (NEGATIVE); KETONES,URINE NEGATIVE (NEGATIVE); LEUKOCYTE ESTERASE,URINE TRACE (NEGATIVE); NITRITE,URINE NEGATIVE (NEGATIVE); PROTEIN,URINE NEGATIVE (NEGATIVE); URINE SPECIFIC GRAVITY 1.005; UROBILINOGEN,URINE NEGATIVE mg/dL (<2.0)
[2017-06-29 18:37] LABS: URINE CREATININE 24.2 mg/dL (15-278); URINE PROTEIN 11.2 mg/dL (<12)
[2017-06-29] MEDS: OXYCODONE-ACETAMINOPHEN 5-325 MG TABLET PO PRN (19:02)
[2017-06-29] MEDS: GLIPIZIDE 10 MG TABLET PO SCH (19:02)
[2017-06-29] MEDS: PREGABALIN 100 MG CAPSULE PO SCH (22:26)
[2017-06-29] MEDS: CYCLOBENZAPRINE HCL 10 MG TABLET PO SCH (22:27)
[2017-06-29] MEDS: METOPROLOL SUCCINATE 50 MG TAB.SR.24H PO SCH (22:27)
[2017-06-29] MEDS: ISOSORBIDE DINITRATE 20 MG TABLET PO SCH (22:28)
[2017-06-29] MEDS: CLONIDINE HCL 0.2 MG TABLET PO SCH (22:28)
[2017-06-30] MEDS: NORMAL SALINE 250 ML with FUROSEMIDE 250 MG IV PRN ×4 (04:55→17:05)
[2017-06-30] MEDS: CYCLOBENZAPRINE HCL 10 MG TABLET PO SCH ×3 (05:42→22:26)
[2017-06-30] MEDS: METFORMIN HCL 500 MG TABLET PO SCH ×2 (07:47→16:08)
[2017-06-30] MEDS: OXYCODONE-ACETAMINOPHEN 5-325 MG TABLET PO PRN ×2 (07:54→22:31)
[2017-06-30] MEDS ORDERED: (PENDING PHARMACY ID) (Alogliptin Benz/Pioglitazone [Oseni 25-30 Mg Tablet] 1 TAB) PO SCH (10:00)
[2017-06-30] MEDS: NITROGLYCERIN 10 MG (0.4 MG/HR) PATCH.TD24 TOP SCH (10:13)
[2017-06-30] MEDS: METOPROLOL SUCCINATE 50 MG TAB.SR.24H PO SCH ×2 (10:14→22:27)
[2017-06-30] MEDS: ASPIRIN 325 MG TABLET PO SCH (10:14)
[2017-06-30] MEDS: GLIPIZIDE 10 MG TABLET PO SCH ×2 (10:14→17:05)
[2017-06-30] MEDS: LISINOPRIL 10 MG TABLET PO SCH (10:15)
[2017-06-30] MEDS: ISOSORBIDE DINITRATE 20 MG TABLET PO SCH ×2 (10:16→22:27)
[2017-06-30] MEDS: CLOPIDOGREL BISULFATE 75 MG TABLET PO SCH (10:16)
[2017-06-30] MEDS: CLONIDINE HCL 0.2 MG TABLET PO SCH ×2 (10:16→22:27)
[2017-06-30] MEDS: AMLODIPINE BESYLATE 10 MG TABLET PO SCH (10:16)
[2017-06-30] MEDS: PREGABALIN 100 MG CAPSULE PO SCH ×2 (10:16→22:26)
--- NOTE | 2017-06-30 13:25 | EKG REPORT ---
SEVERITY:- ABNORMAL ECG - SINUS RHYTHM VENTRICULAR PREMATURE COMPLEX NONSPECIFIC INTRAVENTRICULAR CONDUCTION DELAY LEFT VENTRICULAR HYPERTROPHY : Confirmed by: Jennifer Dorsey 30-Jun-2017 13:25:04
--- NOTE | 2017-06-30 17:22 | PDOC H&P ---
History of Present Illness Admission Date/PCP: 06/29/17 12:55 HENNA VAZQUEZ MD History of Present Illness: JACKIE CRUZ is a 57 year old female, she came to the office for follow- up appointment she complained of severe fluid retention. She is morbidly obese , body mass index 56.5. She was referred for bariatric surgery, she was not done because of concern regarding postoperative supportive care because she has no family member to be there for her postoperatively. The anasarca is not from nephrotic syndrome, congestive heart failure or liver failure,it is weight related Past Medical History Cardiac Medical History: Reports: Myocardial Infarction - HAD 2 IN 2004, Hyperlipidema - SINCE 2001, Hypertension - SINCE LATE Pulmonary Medical History: Reports: Asthma, Bronchitis - HAD OVER 10 YRS, Chronic Obstructive Pulmonary Disease (COPD) Endocrine Medical History: Reports: Diabetes Mellitus Type 2, Obesity Psychiatric Medical History: Reports: Depression - IN OVER IT NOW Past Surgical History Past Surgical History: Reports: Cardiac Catheterization - MAY 2010, Tonsillectomy - REMOVE AT AGE 12 Social History Smoking Status: Former Smoker Number of Years Smokin Last Time Smoked: 2009 Frequency of Alcohol Use: Occasional Hx Recreational Drug Use: Yes Drugs: None Hx Prescription Drug Abuse: Yes Family History Family History: Reviewed & Not Pertinent Parental Family History Reviewed: Yes Children Family History Reviewed: Yes Sibling(s) Family History Reviewed.: Yes Medication/Allergy Home Medications: Albuterol Sulfate [Proair HFA] 2 puff IH Q4HP PRN 06/29/17 Alogliptin Rock/Pioglitazone [Oseni 25-30 mg Tablet] 1 tab PO DAILY 06/29/17 Amlodipine Besylate [Norvasc 10 mg Tablet] 10 mg PO DAILY 06/29/17 Aspirin [Aspirin 325 mg Tablet] 325 mg PO DAILY 06/29/17 Beclomethasone Dipropionate [Qvar] 1 puff IH Q4HP PRN 06/29/17 Clonidine HCl [Catapres 0.2 mg Tablet] 0.2 mg PO Q12 06/29/17 Clopidogrel Bisulfate [Clopidogrel] 75 mg PO DAILY 06/29/17 Cyclobenzaprine HCl [Flexeril 10 mg Tablet] 10 mg PO Q8 06/29/17 Furosemide [Lasix] 40 mg PO DAILY 06/29/17 Glipizide [Glucotrol 10 mg Tablet] 10 mg PO BID 06/29/17 Insulin NPL/Insulin Lispro [Humalog Mix 75-25 100 unit/mL] 60 units SUBCUT BID 06/29/17 Isosorbide Dinitrate [Isordil Titradose 20 mg Tablet] 20 mg PO Q12 06/29/17 Lisinopril [Prinivil 40 mg Tablet] 40 mg PO DAILY 06/29/17 Metformin HCl [Glucophage] 1,000 mg PO BIDACBS 06/29/17 Metoprolol Succinate [Toprol Xl 50 mg Tab.sr] 50 mg PO Q12 06/29/17 Nitroglycerin [Nitro-Dur 10 mg (0.4MG/Hr) Transdermal Patch] 1 patch TOP DAILY 06/29/17 Oxycodone HCl/Acetaminophen [Percocet 10-325 mg Tablet] 1 tab PO TIDP PRN Pregabalin [Lyrica 100 mg Capsule] 100 mg PO Q12 06/29/17 Allergies/Adverse Reactions: Penicillins Allergy (Verified 04/09/17 17:32) Review of Systems Constitutional: PRESENT: weight gain Eyes: ABSENT: visual disturbances Ears: ABSENT: hearing changes Cardiovascular: PRESENT: dyspnea on exertion. ABSENT: chest pain, edema, orthropnea, palpitations Respiratory: ABSENT: cough, hemoptysis Gastrointestinal: ABSENT: abdominal pain, constipation, diarrhea, hematemesis, hematochezia, nausea, vomiting Genitourinary: ABSENT: dysuria, hematuria Musculoskeletal: ABSENT: joint swelling Integumentary: ABSENT: rash, wounds Neurological: ABSENT: abnormal gait, abnormal speech, confusion, dizziness, focal weakness, syncope Psychiatric: ABSENT: anxiety, depression, homidical ideation, suicidal ideation Endocrine: ABSENT: cold intolerance, heat intolerance, menstrual abnormalities, polydipsia, polyuria Hematologic/Lymphatic: ABSENT: easy bleeding, easy bruising, lymphadenopathy Physical Exam Vital Signs: Temp Pulse Resp BP Pulse Ox 98.2 F 65 16 126/64 H 95 06/30/17 15:44 06/30/17 15:44 06/30/17 15:44 06/30/17 15:44 06/30/17 15:44 Intake & Output 06/29/17 06/30/17 07/01/17 06:59 06:59 06:59 Intake Total 300 Output Total 3475 Balance -3175 Weight 163.7 kg 163.7 kg General appearance: PRESENT: morbidly obese Head exam: PRESENT: atraumatic, normocephalic Eye exam: PRESENT: PERRLA Neck exam: PRESENT: full ROM Respiratory exam: PRESENT: clear to auscultation michelle Cardiovascular exam: PRESENT: RRR, +S1, +S2 Vascular exam: PRESENT: normal capillary refill GI/Abdominal exam: PRESENT: distended, normal bowel sounds, soft Rectal exam: PRESENT: deferred Extremities exam: PRESENT: pedal edema Neurological exam: PRESENT: alert, awake, oriented to person, oriented to place , oriented to time, oriented to situation, CN II-XII grossly intact Psychiatric exam: PRESENT: appropriate affect, normal mood Skin exam: PRESENT: dry, intact, warm Results Laboratory Results: 06/29/17 15:20 06/29/17 15:20 06/29/17 17:40 Urine Color STRAW Urine Appearance SLIGHTLY-CLOUDY Urine pH 5.0 Ur Specific [place] 1.005 Urine Protein NEGATIVE Urine Glucose (UA) NEGATIVE Urine Ketones NEGATIVE Urine Blood NEGATIVE Urine Nitrite NEGATIVE Ur Leukocyte Esterase TRACE H Urine WBC (Auto) 4 Urine RBC (Auto) 0 06/29/17 15:20 NT-Pro-B Natriuret Pep 635 Impressions: Chest X-Ray 06/29/17 14:41 IMPRESSION: Mild pulmonary vascular prominence and cardiomegaly. No pulmonary edema. Assessment & Plan - Diagnosis (1) Anasarca Is this a current diagnosis for this admission?: YesPlan: She is admitted to be treated with furosemide infusion (2) History of coronary artery disease Is this a current diagnosis for this admission?: Yes (3) Obesity, morbid, BMI 50 or higher Is this a current diagnosis for this admission?: Yes (4) Obstructive sleep apnea hypopnea, moderate Is this a current diagnosis for this admission?: Yes
--- NOTE | 2017-06-30 17:59 | PDOC DISCHARGE SUMMARY ---
General - Admit/Disc Date/PCP Admission Date/Primary Care Provider: 06/29/17 12:55 HENNA VAZQUEZ MD Discharge Date: 06/30/17 - Discharge Diagnosis (1) Anasarca Is this a current diagnosis for this admission?: Yes (2) History of coronary artery disease Is this a current diagnosis for this admission?: Yes (3) Obesity, morbid, BMI 50 or higher Is this a current diagnosis for this admission?: Yes (4) Obstructive sleep apnea hypopnea, moderate Is this a current diagnosis for this admission?: Yes (5) Diabetes mellitus type 2 in obese Is this a current diagnosis for this admission?: Yes - Additional Information Discharge Diet: Diabetic Discharge Activity: Activity As Tolerated Home Medications: Albuterol Sulfate [Proair HFA] 2 puff IH Q4HP PRN 06/29/17 Alogliptin Rock/Pioglitazone [Oseni 25-30 mg Tablet] 1 tab PO DAILY 06/29/17 Amlodipine Besylate [Norvasc 10 mg Tablet] 10 mg PO DAILY 06/29/17 Aspirin [Aspirin 325 mg Tablet] 325 mg PO DAILY 06/29/17 Beclomethasone Dipropionate [Qvar] 1 puff IH Q4HP PRN 06/29/17 Clonidine HCl [Catapres 0.2 mg Tablet] 0.2 mg PO Q12 06/29/17 Clopidogrel Bisulfate [Clopidogrel] 75 mg PO DAILY 06/29/17 Cyclobenzaprine HCl [Flexeril 10 mg Tablet] 10 mg PO Q8 06/29/17 Furosemide [Lasix] 40 mg PO DAILY 06/29/17 Glipizide [Glucotrol 10 mg Tablet] 10 mg PO BID 06/29/17 Insulin NPL/Insulin Lispro [Humalog Mix 75-25 100 unit/mL] 60 units SUBCUT BID 06/29/17 Isosorbide Dinitrate [Isordil Titradose 20 mg Tablet] 20 mg PO Q12 06/29/17 Lisinopril [Prinivil 40 mg Tablet] 40 mg PO DAILY 06/29/17 Metformin HCl [Glucophage] 1,000 mg PO BIDACBS 06/29/17 Metoprolol Succinate [Toprol Xl 50 mg Tab.sr] 50 mg PO Q12 06/29/17 Nitroglycerin [Nitro-Dur 10 mg (0.4MG/Hr) Transdermal Patch] 1 patch TOP DAILY 06/29/17 Oxycodone HCl/Acetaminophen [Percocet 10-325 mg Tablet] 1 tab PO TIDP PRN Pregabalin [Lyrica 100 mg Capsule] 100 mg PO Q12 06/29/17 History of Present Illness History of Present Illness: JACKIE CRUZ is a 57 year old female, she came to the office for follow- up appointment she complained of severe fluid retention. She is morbidly obese , body mass index 56.5. She was referred for bariatric surgery, she was not done because of concern regarding postoperative supportive care because she has no family member to be there for her postoperatively. The anasarca is not from nephrotic syndrome, congestive heart failure or liver failure,it is weight related Hospital Course Hospital Course: Patient was admitted for the management of anasarca, she was treated with furosemide infusion. The anasarca is weight related, she was admitted for observation Physical Exam Vital Signs: Temp Pulse Resp BP Pulse Ox 98.2 F 65 16 126/64 H 95 06/30/17 15:44 06/30/17 15:44 06/30/17 15:44 06/30/17 15:44 06/30/17 15:44 Intake & Output 06/29/17 06/30/17 07/01/17 06:59 06:59 06:59 Intake Total 300 Output Total 3475 Balance -3175 Weight 163.7 kg 163.7 kg General appearance: PRESENT: no acute distress, morbidly obese, well-developed, well-nourished Head exam: PRESENT: atraumatic, normocephalic Eye exam: PRESENT: PERRLA Ear exam: PRESENT: normal external ear exam Neck exam: PRESENT: full ROM Respiratory exam: PRESENT: clear to auscultation michelle Cardiovascular exam: PRESENT: RRR, +S1, +S2 Vascular exam: PRESENT: normal capillary refill GI/Abdominal exam: PRESENT: normal bowel sounds, soft Rectal exam: PRESENT: deferred Neurological exam: PRESENT: alert, awake, oriented to person, oriented to place , oriented to time, oriented to situation, CN II-XII grossly intact Psychiatric exam: PRESENT: appropriate affect, normal mood Skin exam: PRESENT: dry, intact, warm Results Laboratory Results: 06/29/17 15:20 06/29/17 17:40 Urine Color STRAW Urine Appearance SLIGHTLY-CLOUDY Urine pH 5.0 Ur Specific [place] 1.005 Urine Protein NEGATIVE Urine Glucose (UA) NEGATIVE Urine Ketones NEGATIVE Urine Blood NEGATIVE Urine Nitrite NEGATIVE Ur Leukocyte Esterase TRACE H Urine WBC (Auto) 4 Urine RBC (Auto) 0 06/29/17 15:20 NT-Pro-B Natriuret Pep 635 Impressions: Chest X-Ray 06/29/17 14:41 IMPRESSION: Mild pulmonary vascular prominence and cardiomegaly. No pulmonary edema.
[2017-06-30 18:01] LABS: ALANINE AMINOTRANSFERASE 31 U/L (9-52); ALBUMIN 4.4 g/dL (3.5-5.0); ALKALINE PHOSPHATASE 101 U/L (38-126); ANION GAP 9 (5-19); ASPARTATE AMINO TRANSFERASE 19 U/L (14-36); BILIRUBIN,DIRECT 0.4 mg/dL (0.0-0.4); BILIRUBIN,TOTAL 0.5 mg/dL (0.2-1.3); BLOOD UREA NITROGEN 24 mg/dL (7-20); CALCIUM 10.7 mg/dL (8.4-10.2); CARBON DIOXIDE 35 mmol/L (22-30); CHLORIDE 99 mmol/L (98-107); CREATININE RESULT 0.95 mg/dL (0.52-1.25); GLUCOSE 117 mg/dL (75-110); POTASSIUM 4.2 mmol/L (3.6-5.0); SODIUM 142.6 mmol/L (137-145); TOTAL PROTEIN 7.6 g/dL (6.3-8.2)
[2017-07-01] MEDS: CYCLOBENZAPRINE HCL 10 MG TABLET PO SCH (05:33)
[2017-07-01] MEDS: ASPIRIN 325 MG TABLET PO SCH (09:56)
[2017-07-01] MEDS: LISINOPRIL 10 MG TABLET PO SCH (09:56)
[2017-07-01] MEDS: GLIPIZIDE 10 MG TABLET PO SCH (09:57)
[2017-07-01] MEDS: PREGABALIN 100 MG CAPSULE PO SCH (09:57)
[2017-07-01] MEDS: ISOSORBIDE DINITRATE 20 MG TABLET PO SCH (09:57)
[2017-07-01] MEDS: CLONIDINE HCL 0.2 MG TABLET PO SCH (09:57)
[2017-07-01] MEDS: CLOPIDOGREL BISULFATE 75 MG TABLET PO SCH (09:58)
[2017-07-01] MEDS: AMLODIPINE BESYLATE 10 MG TABLET PO SCH (09:58)
[2017-07-01] MEDS: METFORMIN HCL 500 MG TABLET PO SCH (09:58)
[2017-07-01] MEDS: METOPROLOL SUCCINATE 50 MG TAB.SR.24H PO SCH (09:59)
[2017-07-01] MEDS: NITROGLYCERIN 10 MG (0.4 MG/HR) PATCH.TD24 TOP SCH (09:59)
[2017-07-01 11:36] VITALS: BP 145/73
== END 2017-07-01 12:29 | disposition home or self-care (01) ==
LOC: 3W 12:55
PROVIDERS: ADMIT Internal Medicine; ATTEND Internal Medicine
DX: R60.1 Generalized edema (principal); I25.10 Atherosclerotic heart disease of native coronary artery without angina pectoris; E66.01 Morbid (severe) obesity due to excess calories; Z68.43 Body mass index [BMI] 50.0-59.9, adult; G47.33 Obstructive sleep apnea (adult) (pediatric); E11.9 Type 2 diabetes mellitus without complications; I25.2 Old myocardial infarction; I10 Essential (primary) hypertension; J45.909 Unspecified asthma, uncomplicated; E78.5 Hyperlipidemia, unspecified; R06.09 Other forms of dyspnea; Z79.899 Other long term (current) drug therapy; Z79.82 Long term (current) use of aspirin; Z79.4 Long term (current) use of insulin; Z79.02 Long term (current) use of antithrombotics/antiplatelets; Z87.891 Personal history of nicotine dependence
CPT/HCPCS: 36415 ×2; 84439; 82962 ×3; 84156; 84443; 82570; 85027; 80076; 80048; 80053; 81001; 83036; 85379; 83880; 71010; 93005; 93010; G0378 ×3; G0379; A9270 ×29; J1940 ×2; J3490 ×2; J7050 ×2; J1815

== ENCOUNTER 2017-10-06 10:26 | Day surgery (SDC) | payer MEDICARE, MEDICAID ==
[2017-10-03 14:03] LABS: ABSOLUTE BASOPHILS # (AUTO) 0.1 10^3/uL (0.0-0.2); ABSOLUTE EOSINOPHILS # (AUTO) 0.1 10^3/uL (0.0-0.6); ABSOLUTE LYMPHOCYTES (AUTO) 1.3 10^3/uL (0.5-4.7); ABSOLUTE MONOCYTES (AUTO) 0.4 10^3/uL (0.1-1.4); ABSOLUTE NEUT (AUTO) 5.1 10^3/uL (1.7-8.2); BASOPHILS % (AUTO) 0.7 % (0-2); EOSINOPHILS % (AUTO) 1.9 % (0-6); HEMATOCRIT 38.5 % (36.0-47.0); HEMOGLOBIN 12.6 g/dL (12.0-15.5); HGB HCT DIFFERENCE -0.7; LYMPHOCYTES % (AUTO) 18.3 % (13-45); MEAN CORPUSCULAR HEMOGLOBIN 30.8 pg (27.0-33.4); MEAN CORPUSCULAR HGB CONC 32.7 g/dL (32.0-36.0); MEAN CORPUSCULAR VOLUME 94 fl (80-97); MONOCYTES % (AUTO) 5.7 % (3-13); RED BLOOD COUNT 4.09 10^6/uL (3.72-5.28); RED CELL DISTRIBUTION WIDTH 14.6 % (11.5-14.0); SEGMENTED NEUTROPHILS % (AUTO) 73.4 % (42-78); WHITE BLOOD COUNT 6.9 10^3/uL (4.0-10.5)
--- NOTE | 2017-10-03 14:16 | EKG REPORT ---
SEVERITY:- ABNORMAL ECG - SINUS RHYTHM PROBABLE LEFT VENTRICULAR HYPERTROPHY : Confirmed by: Jennifer Dorsey 03-Oct-2017 14:15:42
[2017-10-03 14:27] LABS: ANION GAP 9 (5-19); BLOOD UREA NITROGEN 13 mg/dL (7-20); CALCIUM 9.8 mg/dL (8.4-10.2); CARBON DIOXIDE 32 mmol/L (22-30); CHLORIDE 104 mmol/L (98-107); CREATININE RESULT 0.65 mg/dL (0.52-1.25); GLUCOSE 149 mg/dL (75-110); SODIUM 144.8 mmol/L (137-145)
--- NOTE | 2017-10-03 14:34 | RADIOLOGY REPORT (SQ) ---
EXAM DESCRIPTION: CHEST PA/LATERAL COMPLETED DATE/TIME: 10/03/2017 1:52 pm REASON FOR STUDY: PRE OP K02.9 DENTAL CARIES, UNSPECIFIED Z79.01 HALFWAY (CURRENT) USE OF ANTICO AGULANTS COMPARISON: 06/29/2017 NUMBER OF VIEWS: Two views. TECHNIQUE: Frontal and lateral radiographic views of the chest acquired. LIMITATIONS: None. FINDINGS: LUNGS AND PLEURA: No opacities, masses or pneumothorax. No pleural effusion. MEDIASTINUM AND HILAR STRUCTURES: No masses or contour abnormality. HEART AND VASCULAR STRUCTURES: Cardiac enlargement. Vascular congestion. BONES: No acute findings. HARDWARE: None in the chest. OTHER: No other significant finding. IMPRESSION: Stable appearance of the chest. TECHNICAL DOCUMENTATION: JOB ID: [id number] [employer]- All Rights Reserved
[~2017-10-06 10:26] MED LIST: LACTATED RINGERS 1000 ML IV PRN; LIDOCAINE 0.5% INJ-PF (5 MG/ML) 50 ML SDV SUBCUT PRN
[2017-10-06 11:14] LABS: PARTIAL THROMBOPLASTIN TIME 27.5 SEC (23.5-35.8); PROTHROMBIN TIME 13.3 SEC (11.4-15.4)
[2017-10-06 11:27] LABS: POTASSIUM 4.2 mmol/L (3.6-5.0)
[2017-10-06] MEDS ORDERED: LIDOCAINE 2%/EPINEPHRINE INJ 1.7 ML CARTRIDGE ONE ×3 (11:31→12:22)
[2017-10-06] MEDS ORDERED: BUPIVACAINE HCL 0.5%/EPI 1:200000 INJ 1.8 ML CARTRIDGE ONE (11:31)
[2017-10-06] MEDS ORDERED: MIDAZOLAM 2 MG/2 ML INJ ONE (11:50)
[2017-10-06] MEDS ORDERED: PROPOFOL INJ 200 MG/20 ML VIAL IV ONE (11:50)
[2017-10-06] MEDS ORDERED: DIPHENHYDRAMINE HCL 50 MG/ML VIAL IV PRN (12:33)
[2017-10-06] MEDS ORDERED: OXYCODONE-ACETAMINOPHEN 5-325 MG TABLET PO PRN ×3 (12:33→13:20)
[2017-10-06] MEDS ORDERED: MORPHINE SULFATE 10 MG/ML INJ IV PRN (12:33)
[2017-10-06] MEDS ORDERED: PROMETHAZINE HCL INJ 25 MG/1 ML VIAL IV PRN ×2 (12:33)
[2017-10-06] MEDS ORDERED: FENTANYL CITRATE INJ/PF 100 MCG/2 ML AMPUL IV PRN ×3 (12:33)
[2017-10-06] MEDS ORDERED: MEPERIDINE HCL/PF INJ 25 MG/1 ML DISP.SYRIN IV PRN (12:33)
--- NOTE | 2017-10-06 13:10 | Operative Report ---
Operative Report DATE OF SURGERY: 10/06/17 PREOPERATIVE DIAGNOSIS: Nonrestorable tooth #17 POSTOPERATIVE DIAGNOSIS: Nonrestorable tooth #17 OPERATION: Surgical extraction of tooth #17 SURGEON: NIMA BAH ANESTHESIA: LMAC TISSUE REMOVED OR ALTERED: Tooth #17 discarded in trash COMPLICATIONS: None ESTIMATED BLOOD LOSS: Less than 5 mL INTRAOPERATIVE FINDINGS: Consistent with diagnosis a nonrestorable tooth #17 PROCEDURE: Patient taken to main operating room #4. Patient was placed in a beachchair position all remaining on her transport gurney. Care of the patient was given to the anesthesia team. Limited monitored anesthesia care was initiated via peripheral IV and maintained via peripheral IV throughout the case. Once an adequate plane of anesthesia was reached local anesthetic consisting of 2% lidocaine with epinephrine 1-100,000, and Marcaine 0.5% with epinephrine 1-200, 000 was infiltrated into the patient's posterior mandibular left vestibule as well as obtaining a left inferior alveolar nerve block. Effectiveness of the local anesthetic was confirmed. A #15 blade was utilized to make a full- thickness mucoperiosteal incision extending from the distal of tooth #17 to approximately 3 mm anterior to tooth #17. A #2 for mold was then used to elevate a full-thickness mucoperiosteal flap exposing the facial aspect of tooth #17 and the surrounding alveolar crest. A #703 bur on a rotating surgical handpiece under copious sterile saline irrigation was then used to perform a limited ostectomy trough around tooth #17. A #23 mandibular forceps was used to engage the furcation of tooth #17 which was elevated from its bony crypt without event. The extraction site was debrided irrigated and suctioned dry. A 2 cm x 3 cm Surgicel sheet was applied in the alveolus to obtain adequate hemostasis and prevent future bleeding. A 4-0 chromic suture in a mattress style application was used to secure the soft tissue and hold down the surgicelle. The surgical site was inspected and irrigated suctioned dry and noted to be free of active hemorrhage or debris. A knotted 4 x 4 surgical gauze was applied to the surgical site. Occlusal pressure was then allowed to hold the gauze in place. Care of the patient was then returned to the anesthesia team who awakened the patient without complication. The patient was then transported to the postanesthesia care unit with stable vital signs having tolerated the procedure well.
[2017-10-06 15:34] VITALS: BP 180/94
== END 2017-10-06 15:00 | disposition home or self-care (01) ==
LOC: OROUT 10:26
PROVIDERS: ATTEND Dentist Oral and Maxillofacial Surgery
PROC: 0CDXXZ0 Extraction of Lower Tooth, Single, External Approach (ICD-10-PCS; principal; 2017-10-06 12:00)
DX: K02.9 Dental caries, unspecified (principal); E11.9 Type 2 diabetes mellitus without complications; E66.9 Obesity, unspecified; J45.909 Unspecified asthma, uncomplicated; M19.90 Unspecified osteoarthritis, unspecified site; Z79.01 Long term (current) use of anticoagulants; Z79.899 Other long term (current) drug therapy; Z88.0 Allergy status to penicillin; Z88.8 Allergy status to other drugs, medicaments and biological substances; Z68.43 Body mass index [BMI] 50.0-59.9, adult; Z79.4 Long term (current) use of insulin; Z87.891 Personal history of nicotine dependence
CPT/HCPCS: 93005; 36415 ×2; 82962; 82947; 84132; 85025; 85610; 85730; 80048; 71020; 93010; 41899; J2250; J3490; J2704; 170

== ENCOUNTER 2017-12-16 21:19 | Inpatient (IN) | payer MEDICARE, MEDICAID ==
[2017-12-16] MEDS ORDERED: IPRATROPIUM/ALBUTEROL 0.5-2.5 MG/3 ML AMPUL NEB ONE (22:05)
[2017-12-16] MEDS ORDERED: LEVOFLOXACIN 750 MG/D5W RTU 750 MG/150 ML RTUPB IV ONE (22:07)
[2017-12-16] MEDS ORDERED: ACETAMINOPHEN 325 MG TABLET PO ONE (22:09)
--- NOTE | 2017-12-16 22:09 | ER Document Report ---
ED Medical Screen (RME) - General Chief Complaint: Shortness Of Breath Stated Complaint: SHORTNESS OF BREATH Time Seen by Provider: 12/16/17 22:00 Mode of Arrival: Ambulatory Information source: Patient TRAVEL OUTSIDE OF THE [place] IN LAST 30 DAYS: No - HPI Patient complains to provider of: cp, sob, fever Onset: Yesterday Notes: 12/16/17 22:07 Patient arrives with complaints of chest pain, shortness of breath, fever and increased leg swelling since yesterday. The patient has a history of COPD as well as congestive heart failure. Patient is noted to be mildly hypoxic, slight increased work of breathing. She has expiratory wheezing, diminished breath sounds and some fine crackles on her lung exam. She is noted to have pitting edema to her bilateral lower extremities. Patient is meeting SIRS criteria based on her symptoms and vital signs. Sepsis protocol has been started. I have held off on giving her IV fluids due to her history of congestive heart failure and the fact that she appears to have significant pitting edema at this time. Patient was evaluated in triage and was medically screened. Any pertinent orders based on the patient's complaints were ordered at this time. Patient will require further evaluation and will be taken to a room for further evaluation by another provider. This was explained to the patient and/or family at this time. - Related Data Allergies/Adverse Reactions: enalapril Allergy (Verified 10/06/17 13:00) Penicillins Allergy (Verified 10/06/17 11:16) Vvhikgc-Zmz-Rdo Reductase Inhibitor Allergy (Verified 10/06/17 13:00) Past Medical History - Past Medical History Cardiac Medical History: Reports: Hx Heart Attack - Multiple 1999, 2004, 2006 Has stents, Hx Hypercholesterolemia - SINCE 2001, Hx Hypertension Denies: Hx Coronary Artery Disease Pulmonary Medical History: Reports: Hx Bronchitis, Hx COPD, Hx Pneumonia Denies: Hx Asthma Neurological Medical History: Denies: Hx Cerebrovascular Accident, Hx Seizures Endocrine Medical History: Reports: Hx Diabetes Mellitus Type 2 Renal/ Medical History: Denies: Hx Peritoneal Dialysis Musculoskeltal Medical History: Reports Hx Arthritis - Hands, Hips and Legs Psychiatric Medical History: Reports: Hx Depression - IN 1989'S OVER IT NOW Past Surgical History: Reports: Hx Abdominal Surgery - C SECTION OCT 1997, Hx Cardiac Catheterization - MAY 2010, Hx Tonsillectomy - REMOVE AT AGE 12. Denies: Hx Adenoidectomy - Immunizations Immunizations up to date: No Hx Diphtheria, Pertussis, Tetanus Vaccination: No History of Influenza Vaccine for 08/2017 - 01/2018 Season: Refused Physical Exam - Vital signs Vitals: Temp Pulse BP Pulse Ox 100.7 F H 109 H 111/93 H 90 L 12/16/17 21:29 12/16/17 21:29 12/16/17 21:29 12/16/17 21:29 Course - Vital Signs Vital signs: Temp Pulse Resp BP Pulse Ox 100.7 F H 109 H 111/93 H 90 L 12/16/17 21:29 12/16/17 21:29 12/16/17 21:29 12/16/17 21:29
[2017-12-16 23:22] LABS: ABSOLUTE LYMPHOCYTES (AUTO) 0.7 10^3/uL (0.5-4.7); ABSOLUTE MONOCYTES (AUTO) 0.7 10^3/uL (0.1-1.4); BASOPHILS % (AUTO) 0.7 % (0-2); EOSINOPHILS % (AUTO) 0.5 % (0-6); HEMATOCRIT 44.1 % (36.0-47.0); HEMOGLOBIN 14.3 g/dL (12.0-15.5); LYMPHOCYTES % (AUTO) 10.5 % (13-45); MEAN CORPUSCULAR HEMOGLOBIN 30.5 pg (27.0-33.4); MEAN CORPUSCULAR HGB CONC 32.5 g/dL (32.0-36.0); MEAN CORPUSCULAR VOLUME 94 fl (80-97); MONOCYTES % (AUTO) 11.2 % (3-13); PLATELET COUNT 187 10^3/uL (150-450); RED CELL DISTRIBUTION WIDTH 14.1 % (11.5-14.0); SEGMENTED NEUTROPHILS % (AUTO) 77.1 % (42-78); TOTAL CELLS COUNTED % (AUTO) 100 %; WHITE BLOOD COUNT 6.4 10^3/uL (4.0-10.5)
--- NOTE | 2017-12-17 00:47 | ER Document Report ---
ED General - General Chief Complaint: Shortness Of Breath Stated Complaint: SHORTNESS OF BREATH Time Seen by Provider: 12/16/17 22:00 Mode of Arrival: Ambulatory TRAVEL OUTSIDE OF THE [place] IN LAST 30 DAYS: No - HPI Patient complains to provider of: Shortness of breath Notes: Patient coming in for evaluation shortness of breath. Patient has a history of COPD and CHF according to the patient. Patient is supposed to be on Lasix daily however patient states she has not taken this in quite some time. Patient states urinates enough at home. Patient states gradual shortness of breath but nonproductive cough. Denies any sick contacts. Patient denies any travel. Patient is resting comfortably upon my evaluation on no oxygen with O2 saturation between 85-90%. Patient was placed on 2 L nasal cannula. - Related Data Allergies/Adverse Reactions: enalapril Allergy (Verified 10/06/17 13:00) Penicillins Allergy (Verified 10/06/17 11:16) Yhrpvlk-Ukz-Mti Reductase Inhibitor Allergy (Verified 10/06/17 13:00) Past Medical History - General Information source: Patient - Social History Smoking Status: Former Smoker Family History: Reviewed & Not Pertinent Patient has suicidal ideation: No Patient has homicidal ideation: No - Past Medical History Cardiac Medical History: Reports: Hx Heart Attack - Multiple 1999, 2004, 2006 Has stents, Hx Hypercholesterolemia - SINCE 2001, Hx Hypertension Denies: Hx Coronary Artery Disease Pulmonary Medical History: Reports: Hx Bronchitis, Hx COPD, Hx Pneumonia Denies: Hx Asthma Neurological Medical History: Denies: Hx Cerebrovascular Accident, Hx Seizures Endocrine Medical History: Reports: Hx Diabetes Mellitus Type 2 Renal/ Medical History: Denies: Hx Peritoneal Dialysis Musculoskeltal Medical History: Reports Hx Arthritis - Hands, Hips and Legs Psychiatric Medical History: Reports: Hx Depression - IN S OVER IT NOW Past Surgical History: Reports: Hx Abdominal Surgery - C SECTION OCT 1997, Hx Cardiac Catheterization - MAY 2010, Hx Tonsillectomy - REMOVE AT AGE 12. Denies: Hx Adenoidectomy - Immunizations Immunizations up to date: No Hx Diphtheria, Pertussis, Tetanus Vaccination: No Hx Pneumococcal Vaccination: 11/21/15 Review of Systems - Review of Systems Constitutional: No symptoms reported EENT: No symptoms reported Cardiovascular: No symptoms reported Respiratory: Cough, Short of breath Gastrointestinal: No symptoms reported Genitourinary: No symptoms reported Female Genitourinary: No symptoms reported Musculoskeletal: No symptoms reported Skin: No symptoms reported Hematologic/Lymphatic: No symptoms reported Neurological/Psychological: No symptoms reported Physical Exam - Vital signs Vitals: Temp Pulse BP Pulse Ox 100.7 F H 109 H 111/93 H 90 L 12/16/17 21:29 12/16/17 21:29 12/16/17 21:29 12/16/17 21:29 Interpretation: Hypoxic - General General appearance: Appears well, Alert - HEENT Head: Normocephalic, Atraumatic Eyes: Normal Pupils: PERRL - Respiratory Respiratory status: No respiratory distress Chest status: Nontender Breath sounds: Nonproductive cough Chest palpation: Normal - Cardiovascular Rhythm: Regular Heart sounds: Normal auscultation Murmur: No - Abdominal Inspection: Normal, Morbidly Obese Distension: No distension Bowel sounds: Normal Tenderness: Nontender Organomegaly: No organomegaly - Back Back: Normal, Nontender - Extremities General upper extremity: Normal inspection, Nontender, Normal color, Normal ROM , Normal temperature General lower extremity: Normal inspection, Nontender, Edema - 2+ pitting edema , Normal color, Normal ROM, Normal temperature, Normal weight bearing. No: Reyes's sign - Neurological Neuro grossly intact: Yes Cognition: Normal Orientation: AAOx4 Harsh Coma Scale Eye Opening: Spontaneous Harsh Coma Scale Verbal: Oriented [place]rod Coma Scale Motor: Obeys Commands Himrod Coma Scale Total: 15 Speech: Normal Motor strength normal: LUE, RUE, LLE, RLE Sensory: Normal - Psychological Associated symptoms: Normal affect, Normal mood - Skin Skin Temperature: Warm Skin Moisture: Dry Skin Color: Normal Course - Re-evaluation Re-evalutation: 12/17/17 03:12 Patient with elevation of BNP vascular congestion on chest x-ray more likely patient is a CHF exacerbation. Patient continues to require oxygen approximately 2 3 L to keep her SPO2. Will give 80 mg of Lasix. For diuresis will more likely will admit for CHF exacerbation. - Vital Signs Vital signs: Temp Pulse Resp BP Pulse Ox 98.7 F 109 H 20 121/61 95 12/16/17 23:37 12/16/17 21:29 12/17/17 04:01 12/17/17 04:01 12/17/17 04:01 - Laboratory Result Diagrams: 12/16/17 22:55 12/17/17 01:17 Laboratory results interpreted by me: 12/16/17 12/17/17 12/17/17 22:55 01:17 01:17 RDW 14.1 H Lymphocytes % 10.5 L Potassium 3.5 L Glucose 162 H Calcium 10.5 H NT-Pro-B Natriuret Pep 1990 H Critical Care Note - Critical Care Note Total time excluding time spent on procedures (mins): 35 Comments: Multiple evaluation patient with hypoxia requiring oxygen for CHF exacerbation. Discharge - Discharge Clinical Impression: History of morbid obesity, Bilateral lower extremity edema, Hypoxemia requiring supplemental oxygen CHF exacerbation Qualifiers: Congestive heart failure type: unspecified Qualified Code(s): I50.9 - Heart failure, unspecified Condition: Good Disposition: ADMITTED INPATIENT Unit Admitted: Telemetry Referrals: HENNA VAZQUEZ MD [Primary Care Provider] - Follow up as needed
[2017-12-17 00:51] LABS: A TYPE INFLUENZA AG NEGATIVE (NEGATIVE); B INFLUENZA AG NEGATIVE (NEGATIVE)
[2017-12-17 01:41] LABS: ALANINE AMINOTRANSFERASE 24 U/L (9-52); ALBUMIN 3.9 g/dL (3.5-5.0); ALKALINE PHOSPHATASE 96 U/L (38-126); ANION GAP 9 (5-19); ASPARTATE AMINO TRANSFERASE 17 U/L (14-36); BILIRUBIN,DIRECT 0.2 mg/dL (0.0-0.4); BILIRUBIN,TOTAL 0.4 mg/dL (0.2-1.3); BLOOD UREA NITROGEN 11 mg/dL (7-20); CALCIUM 10.5 mg/dL (8.4-10.2); CARBON DIOXIDE 30 mmol/L (22-30); CHLORIDE 103 mmol/L (98-107); GLUCOSE 162 mg/dL (75-110); POTASSIUM 3.5 mmol/L (3.6-5.0); SODIUM 142.3 mmol/L (137-145); TOTAL PROTEIN 6.8 g/dL (6.3-8.2)
[2017-12-17 01:54] LABS: NT PRO BNP 1990 pg/mL (5-900)
--- NOTE | 2017-12-17 01:56 | RADIOLOGY REPORT (SQ) ---
EXAM DESCRIPTION: CHEST PA/LAT CLINICAL HISTORY: cough, fever, leg edema COMPARISON: 10/03/2017 FINDINGS: Frontal and lateral views of the chest. Cardia megaly. Tortuosity of thoracic aorta. Pulmonary vascular congestion without evidence of definite pulmonary edema. No consolidation, pneumothorax, or pleural effusion. Mild degenerative change of the spine. Upper abdominal soft tissues are unremarkable. IMPRESSION: 1. No acute pneumonic process. Cardiomegaly with pulmonary vascular congestion.
[2017-12-17 01:57] LABS: TROPONIN I < 0.012 ng/mL
[2017-12-17] MEDS ORDERED: FUROSEMIDE INJ/PF 40 MG/4 ML SDV IV ONE (02:15)
[2017-12-17 05:40] LABS: APPEARANCE,URINE SLIGHTLY-CLOUDY; BILIRUBIN,URINE NEGATIVE (NEGATIVE); COLOR,URINE YELLOW; GLUCOSE, URINE NEGATIVE (NEGATIVE); KETONES,URINE NEGATIVE (NEGATIVE); LEUKOCYTE ESTERASE,URINE SMALL (NEGATIVE); NITRITE,URINE NEGATIVE (NEGATIVE); PROTEIN,URINE NEGATIVE (NEGATIVE); URINE SPECIFIC GRAVITY 1.013
[2017-12-17] MEDS ORDERED: NITROGLYCERIN 0.4 MG/TAB 25 TAB/BOTTLE SL PRN (12:32)
[2017-12-17] MEDS ORDERED: ALBUTEROL SULFATE HFA (90 MCG/PUFF) 200 PUFF/8.5 GM MDI IH PRN (12:32)
[2017-12-17] MEDS ORDERED: (PENDING PHARMACY ID) (Oxycodone Hcl/Acetaminophen [Percocet 10-325 Mg Tablet] 1 TAB) PO PRN (12:32)
[2017-12-17] MEDS ORDERED: (PENDING PHARMACY ID) (Beclomethasone Dipropionate [Qvar] 1 PUFF) PO PRN (12:32)
[2017-12-17 13:22] LABS: URINE AMPHETAMINES SCREEN NEGATIVE; URINE BARBITURATES SCREEN NEGATIVE; URINE BENZODIAZEPINES SCREEN NEGATIVE; URINE COCAINE SCREEN NEGATIVE; URINE MARIJUANA (THC) SCREEN NEGATIVE; URINE METHADONE SCREEN NEGATIVE; URINE PHENCYCLIDINE SCREEN NEGATIVE
[2017-12-17 13:26] LABS: INTERNATIONAL RATION (INR) 0.93; PROTHROMBIN TIME 13.1 SEC (11.4-15.4)
[2017-12-17 13:27] LABS: PARTIAL THROMBOPLASTIN TIME 29.7 SEC (23.5-35.8)
[2017-12-17 13:41] LABS: LIPASE 75.8 U/L (23-300); MAGNESIUM 1.9 mg/dL (1.6-2.3); PHOSPHORUS 3.8 mg/dL (2.5-4.5)
[2017-12-17 13:45] LABS: AMYLASE < 30 U/L (30-110)
[2017-12-17 13:58] LABS: FREE T4 (FREE THYROXINE) 1.45 ng/dL (0.78-2.19)
[2017-12-17 14:12] LABS: THYROID STIMULATING HORMONE 1.02 uIU/mL (0.47-4.68)
[2017-12-17] MEDS ORDERED: CLONIDINE HCL 0.2 MG TABLET PO ONE (14:30)
[2017-12-17] MEDS ORDERED: METFORMIN HCL 500 MG TABLET PO ONE (14:30)
[2017-12-17] MEDS ORDERED: ISOSORBIDE DINITRATE 20 MG TABLET PO ONE (14:30)
[2017-12-17] MEDS ORDERED: CYCLOBENZAPRINE HCL 10 MG TABLET PO ONE (14:30)
[2017-12-17] MEDS ORDERED: NITROGLYCERIN 10 MG (0.4 MG/HR) PATCH.TD24 TP ONE (14:30)
[2017-12-17] MEDS ORDERED: LISINOPRIL 10 MG TABLET PO ONE (14:30)
[2017-12-17] MEDS ORDERED: ASPIRIN 325 MG TABLET PO ONE (14:30)
[2017-12-17] MEDS ORDERED: PREGABALIN 100 MG CAPSULE PO ONE (14:30)
[2017-12-17] MEDS ORDERED: GLIPIZIDE 10 MG TABLET PO ONE (14:30)
[2017-12-17] MEDS ORDERED: CLOPIDOGREL BISULFATE 75 MG TABLET PO ONE (14:30)
[2017-12-17] MEDS ORDERED: METOPROLOL SUCCINATE 50 MG TAB.SR.24H PO ONE (15:00)
[2017-12-17] MEDS: OXYCODONE HCL IR 5 MG TABLET PO PRN (15:51)
[2017-12-17] MEDS: OXYCODONE-ACETAMINOPHEN 5-325 MG TABLET PO PRN (15:52)
[2017-12-17] MEDS: NORMAL SALINE 250 ML with FUROSEMIDE 250 MG IV PRN ×2 (15:53)
[2017-12-17] MEDS: HEPARIN SOD (PORCINE) 5,000 UNIT/ML 1 ML SYRINGE SUBCUT SCH ×2 (15:57→21:33)
[2017-12-17 17:53] LABS: CREATINE KINASE MB 0.63 ng/mL (<4.55)
[2017-12-17 17:57] LABS: TROPONIN I < 0.012 ng/mL
[2017-12-17] MEDS: CYCLOBENZAPRINE HCL 10 MG TABLET PO SCH (21:32)
[2017-12-17] MEDS: PREGABALIN 100 MG CAPSULE PO SCH (21:32)
[2017-12-17] MEDS: METOPROLOL SUCCINATE 50 MG TAB.SR.24H PO SCH (21:51)
[2017-12-17] MEDS: CLONIDINE HCL 0.2 MG TABLET PO SCH (21:51)
[2017-12-17] MEDS ORDERED: (PENDING PHARMACY ID) (Alogliptin Benz/Pioglitazone [Oseni 25-30 Mg Tablet] 1 TAB) PO SCH (22:00)
[2017-12-17 22:21] LABS: BILIRUBIN,URINE NEGATIVE (NEGATIVE); CALCIUM OXALATE CRYSTALS,URINE FEW /HPF; COLOR,URINE YELLOW; GLUCOSE, URINE NEGATIVE (NEGATIVE); KETONES,URINE NEGATIVE (NEGATIVE); LEUKOCYTE ESTERASE,URINE TRACE (NEGATIVE); NITRITE,URINE NEGATIVE (NEGATIVE); PROTEIN,URINE NEGATIVE (NEGATIVE); URINE SPECIFIC GRAVITY 1.017
[2017-12-17 22:27] LABS: APPEARANCE,URINE SLIGHTLY HAZY
[2017-12-17 22:41] LABS: CREATINE KINASE MB 0.46 ng/mL (<4.55)
[2017-12-17 22:52] LABS: TROPONIN I < 0.012 ng/mL
[2017-12-18] MEDS: OXYCODONE-ACETAMINOPHEN 5-325 MG TABLET PO PRN ×2 (00:17→09:33)
[2017-12-18] MEDS: OXYCODONE HCL IR 5 MG TABLET PO PRN ×2 (00:18→09:33)
[2017-12-18] MEDS ORDERED: INFLUENZA ADLT QUAD (36MOS+) 2017-18 VAC 0.5 ML SYR IM PRN (00:42)
[2017-12-18] MEDS: IPRATROPIUM/ALBUTEROL 0.5-2.5 MG/3 ML AMPUL NEB PRN ×3 (04:34→20:44)
[2017-12-18 05:08] LABS: ABSOLUTE EOSINOPHILS # (AUTO) 0.1 10^3/uL (0.0-0.6); ABSOLUTE LYMPHOCYTES (AUTO) 0.6 10^3/uL (0.5-4.7); ABSOLUTE MONOCYTES (AUTO) 0.6 10^3/uL (0.1-1.4); ABSOLUTE NEUT (AUTO) 3.6 10^3/uL (1.7-8.2); BASOPHILS % (AUTO) 0.5 % (0-2); EOSINOPHILS % (AUTO) 2.2 % (0-6); HEMATOCRIT 41.4 % (36.0-47.0); HEMOGLOBIN 13.4 g/dL (12.0-15.5); LYMPHOCYTES % (AUTO) 12.4 % (13-45); MEAN CORPUSCULAR HEMOGLOBIN 30.7 pg (27.0-33.4); MEAN CORPUSCULAR HGB CONC 32.3 g/dL (32.0-36.0); MEAN CORPUSCULAR VOLUME 95 fl (80-97); MONOCYTES % (AUTO) 12.4 % (3-13); PLATELET COUNT 178 10^3/uL (150-450); RED BLOOD COUNT 4.36 10^6/uL (3.72-5.28); SEGMENTED NEUTROPHILS % (AUTO) 72.5 % (42-78); TOTAL CELLS COUNTED % (AUTO) 100 %
[2017-12-18 05:30] LABS: ALANINE AMINOTRANSFERASE 32 U/L (9-52); ALBUMIN 4.1 g/dL (3.5-5.0); ALKALINE PHOSPHATASE 102 U/L (38-126); ANION GAP 9 (5-19); ASPARTATE AMINO TRANSFERASE 23 U/L (14-36); BILIRUBIN,DIRECT 0.2 mg/dL (0.0-0.4); BILIRUBIN,TOTAL 0.4 mg/dL (0.2-1.3); BLOOD UREA NITROGEN 15 mg/dL (7-20); CALCIUM 10.3 mg/dL (8.4-10.2); CARBON DIOXIDE 33 mmol/L (22-30); CHLORIDE 99 mmol/L (98-107); CHOLESTEROL 229.43 mg/dL (0-200); GLUCOSE 162 mg/dL (75-110); POTASSIUM 3.7 mmol/L (3.6-5.0); SODIUM 141.2 mmol/L (137-145); TOTAL PROTEIN 7.2 g/dL (6.3-8.2); TRIGLYCERIDES 145 mg/dL (<150)
[2017-12-18 05:41] LABS: CREATINE KINASE MB 0.31 ng/mL (<4.55); DIRECT LDL 157 mg/dL (<100)
[2017-12-18 05:47] LABS: TROPONIN I < 0.012 ng/mL
[2017-12-18] MEDS: HEPARIN SOD (PORCINE) 5,000 UNIT/ML 1 ML SYRINGE SUBCUT SCH ×3 (05:58→21:14)
[2017-12-18] MEDS: ACETAMINOPHEN 325 MG TABLET PO PRN ×2 (05:59→20:37)
[2017-12-18] MEDS: ASPIRIN 325 MG TABLET PO SCH (09:28)
[2017-12-18] MEDS: NITROGLYCERIN 10 MG (0.4 MG/HR) PATCH.TD24 TP SCH (09:29)
[2017-12-18] MEDS: PREGABALIN 100 MG CAPSULE PO SCH ×2 (09:30→21:11)
[2017-12-18] MEDS: GLIPIZIDE 10 MG TABLET PO SCH (09:31)
[2017-12-18] MEDS: METFORMIN HCL 500 MG TABLET PO SCH (09:31)
[2017-12-18] MEDS: CYCLOBENZAPRINE HCL 10 MG TABLET PO SCH ×2 (09:32→21:12)
[2017-12-18] MEDS: METOPROLOL SUCCINATE 50 MG TAB.SR.24H PO SCH ×2 (09:32→21:12)
[2017-12-18] MEDS: ISOSORBIDE DINITRATE 20 MG TABLET PO SCH (09:32)
[2017-12-18] MEDS: CLOPIDOGREL BISULFATE 75 MG TABLET PO SCH (09:34)
[2017-12-18] MEDS ORDERED: LISINOPRIL 10 MG TABLET PO SCH (10:00)
--- NOTE | 2017-12-18 11:58 | EKG REPORT ---
SEVERITY:- ABNORMAL ECG - SINUS TACHYCARDIA ATRIAL PREMATURE COMPLEX LVH WITH SECONDARY REPOLARIZATION ABNORMALITY : Confirmed by: Shannon Pack MD 18-Dec-2017 11:57:56
[2017-12-18] MEDS: CLONIDINE HCL 0.2 MG TABLET PO SCH ×2 (12:16→21:11)
[2017-12-18 16:08] LABS: ARTERIAL BLOOD BASE EXCESS 7.9 mmol/L; ARTERIAL BLOOD FIO2 2L; ARTERIAL BLOOD H2CO3 2.06 mmol/L (1.05-1.35); ARTERIAL BLOOD HCO3 36.3 mmol/L (20-26); ARTERIAL BLOOD PCO2 68.6 mmHg (35-45); ARTERIAL BLOOD PH 7.34 (7.35-7.45); ARTERIAL BLOOD PO2 88.9 mmHg (80-100); ARTERIAL BLOOD TOTAL CO2 38.5 mmol/L (21-25)
--- NOTE | 2017-12-18 17:00 | PDOC H&P ---
History of Present Illness Admission Date/PCP: 12/17/17 11:35 HENNA VAZQUEZ MD History of Present Illness: JACKIE CRUZ is a 57 year old female, she has a history of coronary artery disease status post coronary artery stent placement, chronic diastolic heart failure morbid obesity ,sleep apnea. She came to the emergency room for evaluation of shortness of breath, increase lower extremity swelling this is progressive, she has a history of obstructive sleep apnea on maintenance BiPAP at home though she is not very compliant with the device. Past Medical History Cardiac Medical History: Reports: Coronary Artery Disease, Myocardial Infarction - Multiple 1999, 2004, 2006 Has stents, Hyperlipidema - SINCE 2001, Hypertension, Other - Chronic diastolic heart failure Pulmonary Medical History: Reports: Bronchitis, Chronic Obstructive Pulmonary Disease (COPD), Pneumonia Endocrine Medical History: Reports: Diabetes Mellitus Type 2 Musculoskeltal Medical History: Reports: Arthritis - Hands, Hips and Legs Psychiatric Medical History: Reports: Depression - IN S OVER IT NOW Hematology: Reports: Anemia Past Surgical History Past Surgical History: Reports: Cardiac Catheterization - MAY 2010, Tonsillectomy - REMOVE AT AGE 12 Denies: Adenoidectomy Social History Smoking Status: Former Smoker Number of Years Smokin Frequency of Alcohol Use: Occasional Hx Recreational Drug Use: Yes Drugs: None Hx Prescription Drug Abuse: Yes - Advance Directive Resuscitation Status: Full Code Family History Family History: Reviewed & Not Pertinent Parental Family History Reviewed: Yes Children Family History Reviewed: Yes Sibling(s) Family History Reviewed.: Yes Medication/Allergy Home Medications: RX: Albuterol Sulfate [Proair HFA Inhalation Aerosol 8.5 gm MDI] 2 puff PO Q4HP PRN 12/17/17 RX: Alogliptin Rock/Pioglitazone [Oseni 25-30 mg Tablet] 1 tab PO QHS 12/17/17 RX: Aspirin [Aspirin 325 mg Tablet] 325 mg PO DAILY 12/17/17 RX: Beclomethasone Dipropionate [Qvar] 1 puff PO Q4HP PRN 12/17/17 RX: Clonidine HCl [Catapres 0.2 mg Tablet] 0.2 mg PO Q12 12/17/17 RX: Clopidogrel Bisulfate [Plavix 75 mg Tablet] 75 mg PO DAILY 12/17/17 RX: Cyclobenzaprine HCl [Flexeril 10 mg Tablet] 10 mg PO BID 12/17/17 RX: Glipizide [Glucotrol 10 mg Tablet] 10 mg PO DAILY 12/17/17 RX: Isosorbide Dinitrate [Isordil Titradose 20 mg Tablet] 20 mg PO DAILY RX: Lisinopril [Prinivil 40 mg Tablet] 40 mg PO DAILY 12/17/17 RX: Metformin HCl [Glucophage] 1,000 mg PO DAILY 12/17/17 RX: Metoprolol Succinate [Toprol Xl 50 mg Tab.sr] 50 mg PO Q12 12/17/17 RX: Nitroglycerin [Nitro-Dur 10 mg (0.4MG/Hr) Transdermal Patch] 1 patch TP DAILY 12/17/17 RX: Nitroglycerin [Nitrostat 0.4 mg (1/150 Gr) Tabs 25/Bottle] 1 tab SL ASDIR PRN 12/17/17 RX: Oxycodone HCl/Acetaminophen [Percocet 10-325 mg Tablet] 1 tab PO TIDP PRN RX: Pregabalin [Lyrica 100 mg Capsule] 100 mg PO Q12 12/17/17 Allergies/Adverse Reactions: enalapril Allergy (Verified 12/17/17 07:46) Penicillins Allergy (Verified 12/17/17 07:46) Poruaep-Nwz-Clh Reductase Inhibitor Allergy (Verified 12/17/17 07:46) Review of Systems Constitutional: PRESENT: fatigue Eyes: ABSENT: visual disturbances Ears: ABSENT: hearing changes Cardiovascular: PRESENT: dyspnea on exertion, edema Respiratory: PRESENT: dyspnea Gastrointestinal: ABSENT: abdominal pain, constipation, diarrhea, hematemesis, hematochezia, nausea, vomiting Genitourinary: ABSENT: dysuria, hematuria Musculoskeletal: ABSENT: joint swelling Integumentary: ABSENT: rash, wounds Neurological: ABSENT: abnormal gait, abnormal speech, confusion, dizziness, focal weakness, syncope Psychiatric: ABSENT: anxiety, depression, homidical ideation, suicidal ideation Endocrine: ABSENT: cold intolerance, heat intolerance, menstrual abnormalities, polydipsia, polyuria Hematologic/Lymphatic: ABSENT: easy bleeding, easy bruising, lymphadenopathy Physical Exam Vital Signs: Temp Pulse Resp BP Pulse Ox 99.6 F 88 18 111/52 L 97 12/18/17 11:22 12/18/17 11:22 12/18/17 11:22 12/18/17 11:22 12/18/17 07:55 Intake & Output 12/17/17 12/18/17 12/19/17 06:59 06:59 06:59 Intake Total 720 500 Balance 720 500 Weight 148.5 kg General appearance: PRESENT: no acute distress, well-developed, well-nourished Head exam: PRESENT: atraumatic, normocephalic Eye exam: PRESENT: conjunctiva pink, EOMI, PERRLA. ABSENT: scleral icterus Ear exam: PRESENT: normal external ear exam Mouth exam: PRESENT: moist, tongue midline Neck exam: PRESENT: full ROM Respiratory exam: PRESENT: clear to auscultation michelle Cardiovascular exam: PRESENT: RRR, +S1, +S2 Pulses: PRESENT: normal dorsalis pedis pul, +2 pedal pulses bilateral GI/Abdominal exam: PRESENT: normal bowel sounds, soft Rectal exam: PRESENT: deferred Neurological exam: PRESENT: alert, awake, oriented to person, oriented to place , oriented to time, oriented to situation, CN II-XII grossly intact Psychiatric exam: PRESENT: appropriate affect, normal mood Skin exam: PRESENT: dry, intact, warm Results Laboratory Results: 12/18/17 04:37 12/18/17 04:37 12/17/17 12/18/17 12/18/17 21:45 04:37 04:37 WBC 5.0 RBC 4.36 Hgb 13.4 Hct 41.4 MCV 95 MCH 30.7 MCHC 32.3 RDW 14.0 Plt Count 178 Seg Neutrophils % 72.5 Lymphocytes % 12.4 L Monocytes % 12.4 Eosinophils % 2.2 Basophils % 0.5 Absolute Neutrophils 3.6 Absolute Lymphocytes 0.6 Absolute Monocytes 0.6 Absolute Eosinophils 0.1 Absolute Basophils 0.0 Carbonic Acid HCO3/H2CO3 Ratio ABG pH ABG pCO2 ABG pO2 ABG HCO3 ABG O2 Saturation ABG Base Excess FiO2 Sodium 141.2 Potassium 3.7 Chloride 99 Carbon Dioxide 33 H Anion Gap 9 BUN 15 Creatinine 0.92 Est GFR ( Amer) > 60 Est GFR (Non-Af Amer) > 60 Glucose 162 H Calcium 10.3 H Total Bilirubin 0.4 AST 23 ALT 32 Alkaline Phosphatase 102 Total Protein 7.2 Albumin 4.1 Triglycerides 145 Cholesterol 229.43 H LDL Cholesterol Direct 157 H VLDL Cholesterol 29.0 HDL Cholesterol 44 Urine Color YELLOW Urine Appearance SLIGHTLY HAZY Urine pH 5.0 Ur Specific [place] 1.017 Urine Protein NEGATIVE Urine Glucose (UA) NEGATIVE Urine Ketones NEGATIVE Urine Blood NEGATIVE Urine Nitrite NEGATIVE Ur Leukocyte Esterase TRACE H Urine WBC (Auto) 2 Urine RBC (Auto) 0 12/18/17 15:53 WBC RBC Hgb Hct MCV MCH MCHC RDW Plt Count Seg Neutrophils % Lymphocytes % Monocytes % Eosinophils % Basophils % Absolute Neutrophils Absolute Lymphocytes Absolute Monocytes Absolute Eosinophils Absolute Basophils Carbonic Acid 2.06 H HCO3/H2CO3 Ratio 17:1 ABG pH 7.34 L ABG pCO2 68.6 H ABG pO2 88.9 ABG HCO3 36.3 H ABG O2 Saturation 96.0 ABG Base Excess 7.9 FiO2 2L Sodium Potassium Chloride Carbon Dioxide Anion Gap BUN Creatinine Est GFR ( Amer) Est GFR (Non-Af Amer) Glucose Calcium Total Bilirubin AST ALT Alkaline Phosphatase Total Protein Albumin Triglycerides Cholesterol LDL Cholesterol Direct VLDL Cholesterol HDL Cholesterol Urine Color Urine Appearance Urine pH Ur Specific [place] Urine Protein Urine Glucose (UA) Urine Ketones Urine Blood Urine Nitrite Ur Leukocyte Esterase Urine WBC (Auto) Urine RBC (Auto) 12/17/17 12/17/17 12/17/17 13:02 17:03 22:05 Creatine Kinase 67 53 CK-MB (CK-2) 0.63 Troponin I < 0.012 12/17/17 12/18/17 12/18/17 22:05 04:37 04:37 Creatine Kinase 50 CK-MB (CK-2) 0.46 0.31 Troponin I < 0.012 < 0.012 Impressions: Chest X-Ray 12/16/17 22:05 IMPRESSION: 1. No acute pneumonic process. Cardiomegaly with pulmonary vascular congestion. Assessment & Plan - Diagnosis (1) Acute diastolic heart failure Is this a current diagnosis for this admission?: Yes (2) Acute respiratory acidosis Is this a current diagnosis for this admission?: Yes (3) Acute hypercapnic respiratory failure Is this a current diagnosis for this admission?: Yes (4) Type 2 diabetes mellitus Qualifiers: Diabetes mellitus complication status: without complication Diabetes mellitus detention insulin use: with detention use Qualified Code(s): E11.9 - Type 2 diabetes mellitus without complications; Z79.4 - assisted (current) use of insulin; Z79.4 - assisted (current) use of insulin; Z79.4 - assisted ( current) use of insulin; Z79.4 - assisted (current) use of insulin Is this a current diagnosis for this admission?: Yes (5) Obstructive sleep apnea hypopnea, moderate Is this a current diagnosis for this admission?: Yes
[2017-12-18] MEDS: NORMAL SALINE 250 ML with FUROSEMIDE 250 MG IV PRN ×2 (17:16)
[2017-12-19] MEDS: OXYCODONE-ACETAMINOPHEN 5-325 MG TABLET PO PRN ×3 (05:16→22:38)
[2017-12-19] MEDS: OXYCODONE HCL IR 5 MG TABLET PO PRN ×3 (05:16→22:38)
[2017-12-19] MEDS: HEPARIN SOD (PORCINE) 5,000 UNIT/ML 1 ML SYRINGE SUBCUT SCH ×3 (05:22→22:38)
[2017-12-19 07:25] LABS: ABSOLUTE LYMPHOCYTES (AUTO) 1.2 10^3/uL (0.5-4.7); ABSOLUTE MONOCYTES (AUTO) 0.6 10^3/uL (0.1-1.4); ABSOLUTE NEUT (AUTO) 2.1 10^3/uL (1.7-8.2); BASOPHILS % (AUTO) 0.7 % (0-2); EOSINOPHILS % (AUTO) 0.8 % (0-6); HEMATOCRIT 38.6 % (36.0-47.0); HEMOGLOBIN 12.4 g/dL (12.0-15.5); LYMPHOCYTES % (AUTO) 30.4 % (13-45); MEAN CORPUSCULAR HEMOGLOBIN 30.4 pg (27.0-33.4); MEAN CORPUSCULAR HGB CONC 32.1 g/dL (32.0-36.0); MEAN CORPUSCULAR VOLUME 95 fl (80-97); PLATELET COUNT 176 10^3/uL (150-450); RED BLOOD COUNT 4.08 10^6/uL (3.72-5.28); RED CELL DISTRIBUTION WIDTH 13.9 % (11.5-14.0); SEGMENTED NEUTROPHILS % (AUTO) 52.1 % (42-78); TOTAL CELLS COUNTED % (AUTO) 100 %
[2017-12-19 07:45] LABS: ALANINE AMINOTRANSFERASE 28 U/L (9-52); ALBUMIN 3.4 g/dL (3.5-5.0); ALKALINE PHOSPHATASE 83 U/L (38-126); ANION GAP 6 (5-19); ASPARTATE AMINO TRANSFERASE 17 U/L (14-36); BILIRUBIN,DIRECT 0.3 mg/dL (0.0-0.4); BILIRUBIN,TOTAL 0.4 mg/dL (0.2-1.3); BLOOD UREA NITROGEN 17 mg/dL (7-20); CALCIUM 9.5 mg/dL (8.4-10.2); CARBON DIOXIDE 39 mmol/L (22-30); CHLORIDE 96 mmol/L (98-107); GLUCOSE 144 mg/dL (75-110); POTASSIUM 3.5 mmol/L (3.6-5.0); SODIUM 140.9 mmol/L (137-145); TOTAL PROTEIN 6.3 g/dL (6.3-8.2)
[2017-12-19] MEDS: METFORMIN HCL 500 MG TABLET PO SCH (09:37)
[2017-12-19] MEDS: ASPIRIN 325 MG TABLET PO SCH (09:37)
[2017-12-19] MEDS: METOPROLOL SUCCINATE 50 MG TAB.SR.24H PO SCH ×2 (09:38→22:38)
[2017-12-19] MEDS: ISOSORBIDE DINITRATE 20 MG TABLET PO SCH (09:38)
[2017-12-19] MEDS: PREGABALIN 100 MG CAPSULE PO SCH ×2 (09:38→22:38)
[2017-12-19] MEDS: NITROGLYCERIN 10 MG (0.4 MG/HR) PATCH.TD24 TP SCH (09:39)
[2017-12-19] MEDS: CYCLOBENZAPRINE HCL 10 MG TABLET PO SCH ×2 (09:39→22:38)
[2017-12-19] MEDS: GLIPIZIDE 10 MG TABLET PO SCH (09:39)
[2017-12-19] MEDS: CLOPIDOGREL BISULFATE 75 MG TABLET PO SCH (09:40)
[2017-12-19] MEDS: IPRATROPIUM/ALBUTEROL 0.5-2.5 MG/3 ML AMPUL NEB PRN (10:52)
[2017-12-19] MEDS: CLONIDINE HCL 0.2 MG TABLET PO SCH ×2 (13:25→22:38)
[2017-12-19] MEDS: NORMAL SALINE 250 ML with FUROSEMIDE 250 MG IV PRN ×2 (18:58)
--- NOTE | 2017-12-19 21:39 | PDOC PROGRESS REPORT ---
Subjective Progress Note for:: 12/19/17 Subjective:: She was seen by the bedside, she will require home oxygen, she develops low oxygen saturation on ambulation Reason For Visit: CHF EXACERBATION,MORBID OBESITY Physical Exam Vital Signs: Temp Pulse Resp BP Pulse Ox 98.8 F 87 18 115/51 L 100 12/19/17 16:00 12/19/17 16:00 12/19/17 16:00 12/19/17 16:00 12/19/17 16:00 Intake & Output 12/18/17 12/19/17 12/20/17 06:59 06:59 06:59 Intake Total 720 3312 1099 Output Total 900 Balance 720 2412 1099 Weight 148.5 kg 146.1 kg 146.1 kg General appearance: PRESENT: no acute distress Eye exam: PRESENT: PERRLA Respiratory exam: PRESENT: clear to auscultation michelle Cardiovascular exam: PRESENT: +S1, +S2 GI/Abdominal exam: PRESENT: soft Neurological exam: PRESENT: alert Results Laboratory Results: 12/19/17 06:42 12/19/17 06:42 12/19/17 12/19/17 06:42 06:42 WBC 4.0 RBC 4.08 Hgb 12.4 Hct 38.6 MCV 95 MCH 30.4 MCHC 32.1 RDW 13.9 Plt Count 176 Seg Neutrophils % 52.1 Lymphocytes % 30.4 Monocytes % 16.0 H Eosinophils % 0.8 Basophils % 0.7 Absolute Neutrophils 2.1 Absolute Lymphocytes 1.2 Absolute Monocytes 0.6 Absolute Eosinophils 0.0 Absolute Basophils 0.0 Sodium 140.9 Potassium 3.5 L Chloride 96 L Carbon Dioxide 39 H Anion Gap 6 BUN 17 Creatinine 1.01 Est GFR ( Amer) > 60 Est GFR (Non-Af Amer) 57 L Glucose 144 H Calcium 9.5 Total Bilirubin 0.4 AST 17 ALT 28 Alkaline Phosphatase 83 Total Protein 6.3 Albumin 3.4 L 12/17/17 12/17/17 12/17/17 13:02 17:03 22:05 Creatine Kinase 67 53 CK-MB (CK-2) 0.63 Troponin I < 0.012 12/17/17 12/18/17 12/18/17 22:05 04:37 04:37 Creatine Kinase 50 CK-MB (CK-2) 0.46 0.31 Troponin I < 0.012 < 0.012 Impressions: Chest X-Ray 12/16/17 22:05 IMPRESSION: 1. No acute pneumonic process. Cardiomegaly with pulmonary vascular congestion. Assessment & Plan - Diagnosis (1) Acute diastolic heart failure Is this a current diagnosis for this admission?: Yes (2) Acute respiratory acidosis Is this a current diagnosis for this admission?: Yes (3) Acute hypercapnic respiratory failure Is this a current diagnosis for this admission?: Yes (4) Type 2 diabetes mellitus Qualifiers: Diabetes mellitus complication status: without complication Diabetes mellitus admitting office escort insulin use: with prison use Qualified Code(s): E11.9 - Type 2 diabetes mellitus without complications; Z79.4 - half-way (current) use of insulin; Z79.4 - half-way (current) use of insulin; Z79.4 - half-way ( current) use of insulin; Z79.4 - last sawyer (current) use of insulin Is this a current diagnosis for this admission?: Yes (5) Obstructive sleep apnea hypopnea, moderate Is this a current diagnosis for this admission?: Yes
[2017-12-20] MEDS: LISINOPRIL 10 MG TABLET PO SCH ×2 (01:42→23:31)
[2017-12-20] MEDS: HEPARIN SOD (PORCINE) 5,000 UNIT/ML 1 ML SYRINGE SUBCUT SCH ×3 (06:14→23:29)
[2017-12-20] MEDS: OXYCODONE-ACETAMINOPHEN 5-325 MG TABLET PO PRN ×2 (06:14→23:28)
[2017-12-20] MEDS: OXYCODONE HCL IR 5 MG TABLET PO PRN ×2 (06:15→23:29)
[2017-12-20 08:20] LABS: ABSOLUTE EOSINOPHILS # (AUTO) 0.1 10^3/uL (0.0-0.6); ABSOLUTE LYMPHOCYTES (AUTO) 1.4 10^3/uL (0.5-4.7); ABSOLUTE MONOCYTES (AUTO) 0.6 10^3/uL (0.1-1.4); ABSOLUTE NEUT (AUTO) 3.4 10^3/uL (1.7-8.2); BASOPHILS % (AUTO) 0.5 % (0-2); EOSINOPHILS % (AUTO) 1.6 % (0-6); HEMATOCRIT 38.6 % (36.0-47.0); HEMOGLOBIN 12.5 g/dL (12.0-15.5); LYMPHOCYTES % (AUTO) 26.3 % (13-45); MEAN CORPUSCULAR HEMOGLOBIN 30.2 pg (27.0-33.4); MEAN CORPUSCULAR HGB CONC 32.5 g/dL (32.0-36.0); MEAN CORPUSCULAR VOLUME 93 fl (80-97); MONOCYTES % (AUTO) 10.5 % (3-13); PLATELET COUNT 169 10^3/uL (150-450); RED BLOOD COUNT 4.14 10^6/uL (3.72-5.28); RED CELL DISTRIBUTION WIDTH 13.6 % (11.5-14.0); SEGMENTED NEUTROPHILS % (AUTO) 61.1 % (42-78); TOTAL CELLS COUNTED % (AUTO) 100 %; WHITE BLOOD COUNT 5.5 10^3/uL (4.0-10.5)
[2017-12-20 08:42] LABS: ALANINE AMINOTRANSFERASE 26 U/L (9-52); ALBUMIN 3.5 g/dL (3.5-5.0); ALKALINE PHOSPHATASE 75 U/L (38-126); ASPARTATE AMINO TRANSFERASE 14 U/L (14-36); BILIRUBIN,DIRECT 0.2 mg/dL (0.0-0.4); BILIRUBIN,TOTAL 0.4 mg/dL (0.2-1.3); BLOOD UREA NITROGEN 18 mg/dL (7-20); CALCIUM 9.5 mg/dL (8.4-10.2); CHLORIDE 92 mmol/L (98-107); GLUCOSE 163 mg/dL (75-110); POTASSIUM 3.4 mmol/L (3.6-5.0); SODIUM 138.2 mmol/L (137-145); TOTAL PROTEIN 6.4 g/dL (6.3-8.2)
[2017-12-20 08:59] LABS: ANION GAP 5 (5-19)
[2017-12-20 09:04] LABS: CARBON DIOXIDE 41 mmol/L (22-30)
[2017-12-20] MEDS: ISOSORBIDE DINITRATE 20 MG TABLET PO SCH (09:08)
[2017-12-20] MEDS: CYCLOBENZAPRINE HCL 10 MG TABLET PO SCH ×2 (09:08→23:27)
[2017-12-20] MEDS: CLOPIDOGREL BISULFATE 75 MG TABLET PO SCH (09:08)
[2017-12-20] MEDS: ASPIRIN 325 MG TABLET PO SCH (09:08)
[2017-12-20] MEDS: NITROGLYCERIN 10 MG (0.4 MG/HR) PATCH.TD24 TP SCH (09:09)
[2017-12-20] MEDS: GLIPIZIDE 10 MG TABLET PO SCH (09:09)
[2017-12-20] MEDS: METFORMIN HCL 500 MG TABLET PO SCH (09:09)
[2017-12-20] MEDS: CLONIDINE HCL 0.2 MG TABLET PO SCH ×2 (09:09→23:27)
[2017-12-20] MEDS: METOPROLOL SUCCINATE 50 MG TAB.SR.24H PO SCH ×2 (09:09→23:28)
[2017-12-20] MEDS: PREGABALIN 100 MG CAPSULE PO SCH ×2 (09:14→23:27)
[2017-12-20] MEDS: ACETAMINOPHEN 325 MG TABLET PO PRN (16:28)
[2017-12-21] MEDS: HEPARIN SOD (PORCINE) 5,000 UNIT/ML 1 ML SYRINGE SUBCUT SCH (06:45)
[2017-12-21] MEDS: OXYCODONE HCL IR 5 MG TABLET PO PRN (06:45)
[2017-12-21] MEDS: OXYCODONE-ACETAMINOPHEN 5-325 MG TABLET PO PRN (06:45)
[2017-12-21] MEDS: GLIPIZIDE 10 MG TABLET PO SCH (07:31)
[2017-12-21 08:36] VITALS: BP 108/79
[2017-12-21] MEDS: ASPIRIN 325 MG TABLET PO SCH (09:20)
[2017-12-21] MEDS: CLONIDINE HCL 0.2 MG TABLET PO SCH (09:20)
[2017-12-21] MEDS: CLOPIDOGREL BISULFATE 75 MG TABLET PO SCH (09:20)
[2017-12-21] MEDS: METFORMIN HCL 500 MG TABLET PO SCH (09:21)
[2017-12-21] MEDS: ISOSORBIDE DINITRATE 20 MG TABLET PO SCH (09:21)
[2017-12-21] MEDS: CYCLOBENZAPRINE HCL 10 MG TABLET PO SCH (09:21)
[2017-12-21] MEDS: METOPROLOL SUCCINATE 50 MG TAB.SR.24H PO SCH (09:22)
[2017-12-21] MEDS: NITROGLYCERIN 10 MG (0.4 MG/HR) PATCH.TD24 TP SCH (09:22)
[2017-12-21] MEDS: PREGABALIN 100 MG CAPSULE PO SCH (09:23)
--- NOTE | 2017-12-21 13:57 | PDOC DISCHARGE SUMMARY ---
General - Admit/Disc Date/PCP Admission Date/Primary Care Provider: 12/17/17 11:35 HENNA VAZQUEZ MD Discharge Date: 12/21/17 - Discharge Diagnosis (1) Acute diastolic heart failure Is this a current diagnosis for this admission?: Yes (2) Acute respiratory acidosis Is this a current diagnosis for this admission?: Yes (3) Acute hypercapnic respiratory failure Is this a current diagnosis for this admission?: Yes (4) Type 2 diabetes mellitus Is this a current diagnosis for this admission?: Yes (5) Obstructive sleep apnea hypopnea, moderate Is this a current diagnosis for this admission?: Yes - Additional Information Resuscitation Status: Full Code Discharge Diet: Cardiac Discharge Activity: Activity As Tolerated, Balance Activity w/Rest, Weigh Daily Home Medications: Albuterol Sulfate [Proair HFA Inhalation Aerosol 8.5 gm MDI] 2 puff PO Q4HP PRN 12/17/17 Alogliptin Rock/Pioglitazone [Oseni 25-30 mg Tablet] 1 tab PO QHS 12/17/17 Aspirin [Aspirin 325 mg Tablet] 325 mg PO DAILY 12/17/17 Beclomethasone Dipropionate [Qvar] 1 puff PO Q4HP PRN 12/17/17 Clonidine HCl [Catapres 0.2 mg Tablet] 0.2 mg PO Q12 12/17/17 Clopidogrel Bisulfate [Plavix 75 mg Tablet] 75 mg PO DAILY 12/17/17 Cyclobenzaprine HCl [Flexeril 10 mg Tablet] 10 mg PO BID 12/17/17 Glipizide [Glucotrol 10 mg Tablet] 10 mg PO DAILY 12/17/17 Isosorbide Dinitrate [Isordil Titradose 20 mg Tablet] 20 mg PO DAILY 12/17/17 Lisinopril [Prinivil 40 mg Tablet] 40 mg PO DAILY 12/17/17 Metformin HCl [Glucophage] 1,000 mg PO DAILY 12/17/17 Metoprolol Succinate [Toprol Xl 50 mg Tab.sr] 50 mg PO Q12 12/17/17 Nitroglycerin [Nitro-Dur 10 mg (0.4MG/Hr) Transdermal Patch] 1 patch TP DAILY Nitroglycerin [Nitrostat 0.4 mg (1/150 Gr) Tabs 25/Bottle] 1 tab SL ASDIR PRN Oxycodone HCl/Acetaminophen [Percocet 10-325 mg Tablet] 1 tab PO TIDP PRN Pregabalin [Lyrica 100 mg Capsule] 100 mg PO Q12 12/17/17 History of Present Illness History of Present Illness: JACKIE CRUZ is a 57 year old female, she has a history of coronary artery disease status post coronary artery stent placement, chronic diastolic heart failure morbid obesity ,sleep apnea. She came to the emergency room for evaluation of shortness of breath, increase lower extremity swelling this is progressive, she has a history of obstructive sleep apnea on maintenance BiPAP at home though she is not very compliant with the device. Hospital Course Hospital Course: Patient was admitted for the management of acute diastolic heart failure, treated with hypoxemia, she was treated with furosemide infusion. She diuresed effectively, she was also treated with noninvasive positive pressure ventilation , BiPAP Physical Exam Vital Signs: Temp Pulse Resp BP Pulse Ox 98.0 F 64 18 108/79 100 12/21/17 08:38 12/21/17 08:38 12/21/17 08:38 12/21/17 08:38 12/21/17 08:38 Intake & Output 12/20/17 12/21/17 12/22/17 06:59 06:59 06:59 Intake Total 1459 1980 Output Total 475 Balance 1459 1505 Weight 146.1 kg 165.9 kg General appearance: PRESENT: no acute distress Head exam: PRESENT: atraumatic, normocephalic Eye exam: PRESENT: PERRLA. ABSENT: scleral icterus Ear exam: PRESENT: normal external ear exam Mouth exam: PRESENT: moist, tongue midline Neck exam: PRESENT: full ROM Respiratory exam: PRESENT: clear to auscultation michelle Cardiovascular exam: PRESENT: RRR, +S1, +S2 Vascular exam: PRESENT: normal capillary refill GI/Abdominal exam: PRESENT: normal bowel sounds, soft Rectal exam: PRESENT: deferred Neurological exam: PRESENT: alert, CN II-XII grossly intact. ABSENT: motor sensory deficit Psychiatric exam: PRESENT: appropriate affect, normal mood Skin exam: PRESENT: dry, intact, warm Results Laboratory Results: 12/20/17 08:13 12/20/17 08:13 12/17/17 12/17/17 12/17/17 13:02 17:03 22:05 Creatine Kinase 67 53 CK-MB (CK-2) 0.63 Troponin I < 0.012 12/17/17 12/18/17 12/18/17 22:05 04:37 04:37 Creatine Kinase 50 CK-MB (CK-2) 0.46 0.31 Troponin I < 0.012 < 0.012 Impressions: Chest X-Ray 12/16/17 22:05 IMPRESSION: 1. No acute pneumonic process. Cardiomegaly with pulmonary vascular congestion.
== END 2017-12-21 10:47 | disposition home or self-care (01) | DRG 291 ==
LOC: ER 21:19 → INTOOBSV 12-17 06:46 → EH 12-17 06:46 → OBSVTOIN 12-17 11:35 → 3S 12-17 19:16
PROVIDERS: ADMIT Internal Medicine; ATTEND Internal Medicine
PROC: 5A09457 Assistance with Respiratory Ventilation, 24-96 Consecutive Hours, Continuous Positive Airway Pressure (ICD-10-PCS; 2017-12-18)
PROC: 3E0234Z Introduction of Serum, Toxoid and Vaccine into Muscle, Percutaneous Approach (ICD-10-PCS; principal; 2017-12-21)
DX: I11.0 Hypertensive heart disease with heart failure (principal); J96.01 Acute respiratory failure with hypoxia; Z68.43 Body mass index [BMI] 50.0-59.9, adult; E87.2 Acidosis; I50.33 Acute on chronic diastolic (congestive) heart failure; I25.10 Atherosclerotic heart disease of native coronary artery without angina pectoris; J44.9 Chronic obstructive pulmonary disease, unspecified; E66.01 Morbid (severe) obesity due to excess calories; E11.9 Type 2 diabetes mellitus without complications; M19.90 Unspecified osteoarthritis, unspecified site; G47.33 Obstructive sleep apnea (adult) (pediatric); Z95.5 Presence of coronary angioplasty implant and graft; Z79.84 Long term (current) use of oral hypoglycemic drugs; Z91.19 Patient's noncompliance with other medical treatment and regimen; Z88.0 Allergy status to penicillin; Z88.8 Allergy status to other drugs, medicaments and biological substances; Z79.02 Long term (current) use of antithrombotics/antiplatelets; Z23 Encounter for immunization
CPT/HCPCS: 36415; 36600; 71046; 80048; 80053; 80061; 80076; 80307; 81001; 82150; 82550; 82553; 82803; 82962; 83036; 83605; 83690; 83735; 83880; 84100; 84439; 84443; 84484; 85025; 85610; 85730; 87040; 87804; 90686; 93005; 93010; 94640; 94660; 96374; 99291; G0378; J1644; J1940; J3490; J7050; J7620

== ENCOUNTER 2018-11-18 11:35 | Inpatient (IN) | payer MEDICARE, MEDICAID ==
[2018-11-18] MEDS ORDERED: DIPHENHYDRAMINE HCL 50 MG/ML VIAL IV ONE (12:16)
[2018-11-18] MEDS ORDERED: METHYLPREDNISOLONE INJ 125 MG/2 ML SDV IV ONE (12:16)
[2018-11-18] MEDS ORDERED: EPINEPHRINE INJ/PF 1 MG/1 ML AMPULE IM ONE (12:16)
[2018-11-18] MEDS ORDERED: FAMOTIDINE INJ/PF 20 MG/2 ML SDV IV ONE (12:16)
--- NOTE | 2018-11-18 12:16 | ER Document Report ---
ED Medical Screen (RME) - General Chief Complaint: Allergic Reaction Stated Complaint: POSSIBLE ALLERGIC REACTION Time Seen by Provider: 11/18/18 12:13 Notes: Patient is a 58-year-old female that presents to the emergency department for chief complaint of shortness of breath, and throat tightness after taking Levaquin, she was prescribed it for a cold she was having. She is not sure she has had Levaquin in the past. ROS: Other than noted above, the 12 point review of systems was reviewed with the patient and were negative, all pertinent findings are included in the HPI. PHYSICAL EXAMINATION: Vital signs reviewed. GENERAL: Obese female, that is in distress HEAD: Atraumatic, normocephalic. EYES: Pupils equal round extraocular movements intact, conjunctiva are normal. ENT: Nares patent, throat appears edematous, uvula edematous as well NECK: Normal range of motion CV: Heart rate tachycardic, regular rhythm LUNGS: Increased work of breathing, wheezing noted throughout all lung john. Musculoskeletal: Normal range of motion NEUROLOGICAL: Normal speech PSYCH: Normal mood, normal affect. MDM: Patient seen and examined for rapid initial assessment. Vital signs reviewed. A comprehensive ED assessment and evaluation of the patient, analysis of test results and completion of the medical decision making process will be conducted by additional ED providers. *Note is created using voice recognition software and may contain spelling, syntax or grammatical errors. TRAVEL OUTSIDE OF THE [place] IN LAST 30 DAYS: No - Related Data Allergies/Adverse Reactions: enalapril Allergy (Verified 11/18/18 11:36) levofloxacin [From Levaquin] Allergy (Verified 11/18/18 12:13) Penicillins Allergy (Verified 11/18/18 11:36) Awitbvn-Bap-Xnw Reductase Inhibitor Allergy (Verified 11/18/18 11:36) Past Medical History - Past Medical History Cardiac Medical History: Reports: Hx Coronary Artery Disease, Hx Heart Attack - Multiple 1999, 2004, 2007 Has stents, Hx Hypercholesterolemia - SINCE 2001, Hx Hypertension Pulmonary Medical History: Reports: Hx Bronchitis, Hx COPD, Hx Pneumonia Denies: Hx Asthma Neurological Medical History: Denies: Hx Cerebrovascular Accident, Hx Seizures Endocrine Medical History: Reports: Hx Diabetes Mellitus Type 2 Renal/ Medical History: Denies: Hx Peritoneal Dialysis Musculoskeltal Medical History: Reports Hx Arthritis - Hands, Hips and Legs Psychiatric Medical History: Reports: Hx Depression - IN 1989'S OVER IT NOW Past Surgical History: Reports: Hx Abdominal Surgery - C SECTION OCT 1997, Hx Cardiac Catheterization - MAY 2010, Hx Tonsillectomy - REMOVE AT AGE 12. Denies: Hx Adenoidectomy - Immunizations Immunizations up to date: No Hx Diphtheria, Pertussis, Tetanus Vaccination: No History of Influenza Vaccine for 08/2017 - 01/2018 Season: No Physical Exam - Vital signs Vitals: Temp Pulse Resp BP Pulse Ox 99.4 F 119 H 22 H 124/87 H 95 11/18/18 11:48 11/18/18 11:48 11/18/18 11:48 11/18/18 11:48 11/18/18 11:48 Course - Vital Signs Vital signs: Temp Pulse Resp BP Pulse Ox 99.4 F 119 H 22 H 124/87 H 95 11/18/18 11:48 11/18/18 11:48 11/18/18 11:48 11/18/18 11:48 11/18/18 11:48 Doctor's Discharge - Discharge Referrals: HENNA VAZQUEZ MD [Primary Care Provider] - Follow up as needed
--- NOTE | 2018-11-18 12:39 | ER Document Report ---
ED General - General Chief Complaint: Allergic Reaction Stated Complaint: POSSIBLE ALLERGIC REACTION Time Seen by Provider: 11/18/18 12:13 Mode of Arrival: Ambulatory Information source: Patient Notes: 58-year-old female with a history of COPD, DM, congestive heart failure presents emergency department complaints of shortness of breath, chest pain, throat tightness. Patient states that she was prescribed levofloxacin for a cough that she was having. She states that she called the office yesterday and had a prescription called in by Dr. Vazquez. patient states that yesterday after taking the medication she began having the throat tightness and shortness of breath. Patient states that she took some Benadryl and this did help with her symptoms. Patient states that they have not completely resolved. Patient also feels like her congestive heart failure is worsening. She states that the swelling to her lower extremities has increased. On 3L home O2. TRAVEL OUTSIDE OF THE [place] IN LAST 30 DAYS: No - HPI Onset: Yesterday Onset/Duration: Sudden, Persistent Quality of pain: Pressure Severity: Mild Pain Level: Denies Associated symptoms: Chest pain, Shortness of breath Exacerbated by: Denies Relieved by: Denies Similar symptoms previously: No Recently seen / treated by doctor: Yes - Related Data Allergies/Adverse Reactions: enalapril Allergy (Verified 11/18/18 11:36) levofloxacin [From Levaquin] Allergy (Verified 11/18/18 12:13) Penicillins Allergy (Verified 11/18/18 11:36) Mmxgyqm-Evd-Vch Reductase Inhibitor Allergy (Verified 11/18/18 11:36) Past Medical History - General Information source: Patient - Social History Smoking Status: Former Smoker Family History: Reviewed & Not Pertinent Patient has suicidal ideation: No Patient has homicidal ideation: No - Past Medical History Cardiac Medical History: Reports: Hx Coronary Artery Disease, Hx Heart Attack - Multiple 1999, 2004, 2007 Has stents, Hx Hypercholesterolemia - SINCE 2001, Hx Hypertension Pulmonary Medical History: Reports: Hx Bronchitis, Hx COPD, Hx Pneumonia Denies: Hx Asthma Neurological Medical History: Denies: Hx Cerebrovascular Accident, Hx Seizures Endocrine Medical History: Reports: Hx Diabetes Mellitus Type 2 Renal/ Medical History: Denies: Hx Peritoneal Dialysis Musculoskeletal Medical History: Reports Hx Arthritis - Hands, Hips and Legs Psychiatric Medical History: Reports: Hx Depression - IN 1989'S OVER IT NOW Past Surgical History: Reports: Hx Abdominal Surgery - C SECTION OCT 1997, Hx Cardiac Catheterization - MAY 2010, Hx Tonsillectomy - REMOVE AT AGE 12. Denies: Hx Adenoidectomy - Immunizations Immunizations up to date: No Hx Diphtheria, Pertussis, Tetanus Vaccination: No Hx Pneumococcal Vaccination: 11/21/15 Review of Systems - Review of Systems Constitutional: No symptoms reported EENT: No symptoms reported Cardiovascular: Chest pain Respiratory: Cough, Short of breath Gastrointestinal: No symptoms reported Genitourinary: No symptoms reported Female Genitourinary: No symptoms reported Musculoskeletal: No symptoms reported Skin: No symptoms reported Hematologic/Lymphatic: No symptoms reported Neurological/Psychological: No symptoms reported -: Yes All other systems reviewed and negative Physical Exam - Vital signs Vitals: Temp Pulse Resp BP Pulse Ox 99.4 F 119 H 22 H 124/87 H 95 11/18/18 11:48 11/18/18 11:48 11/18/18 11:48 11/18/18 11:48 11/18/18 11:48 - Notes Notes: PHYSICAL EXAMINATION: GENERAL: No acute distress. HEAD: Atraumatic, normocephalic. EYES: Pupils equal round and reactive to light, extraocular movements intact, conjunctiva are normal. ENT: Nares patent, oropharynx clear without exudates. Moist mucous membranes. No uvula deviation or tonsillar enlargement. NECK: Normal range of motion, supple without lymphadenopathy LUNGS: Breath sounds clear to auscultation bilaterally and equal. No wheezes rales or rhonchi. HEART: Regular rate and rhythm without murmurs ABDOMEN: Soft, nontender, nondistended abdomen. No guarding, no rebound. No masses appreciated. Female : deferred Musculoskeletal: Normal range of motion, bilateral 2+ pitting edema. No calf tenderness. No cyanosis. NEUROLOGICAL: Cranial nerves grossly intact. Normal speech, normal gait. Normal sensory, motor exams PSYCH: Normal mood, normal affect. SKIN: Warm, Dry, normal turgor, no rashes or lesions noted. Course - Re-evaluation Re-evalutation: 11/18/18 12:43 Patient given IM epi, Solu-Medrol, Pepcid, Benadryl to treat for allergic reaction to levofloxacin. Patient states that she has had worsening lower extremity pitting edema likely due to her congestive heart failure. She also admits to having some chest pain. Labs and imaging ordered. 11/18/18 12:44 EKG: Ventricular rate 86, SD interval 168, QRS duration 104, QTc 421, sinus rhythm. No ST segment elevation. 11/18/18 14:16 Chest x-ray done and shows vascular congestion. BNP is 2820. This is up from previous values. Patient given Lasix. Troponin is negative. On reevaluation, patient states that her throat tightness has resolved. She is still short of breath. This has been present for a while and worsening. She thinks it's related to her CHF. I will admit the patient to the hospitalist for CHF exacerbation. I spoke with Dr. Coker. He is agreeable with admission. Would like ABG ordered. Patient is currently stable. 11/18/18 14:19 - Vital Signs Vital signs: Temp Pulse Resp BP Pulse Ox 99.4 F 119 H 28 H 186/107 H 95 11/18/18 11:48 11/18/18 11:48 11/18/18 13:01 11/18/18 13:01 11/18/18 12:49 - Laboratory Result Diagrams: 11/18/18 12:45 11/18/18 12:45 Laboratory results interpreted by me: 11/18/18 11/18/18 11/18/18 12:45 12:45 12:45 Hgb 11.9 L RDW 14.8 H Seg Neutrophils % 86.8 H Lymphocytes % 6.1 L Absolute Lymphocytes 0.4 L Carbon Dioxide 34 H NT-Pro-B Natriuret Pep 2820 H Discharge - Discharge Clinical Impression: CHF (congestive heart failure) Qualifiers: Heart failure type: unspecified Heart failure chronicity: unspecified Qualified Code(s): I50.9 - Heart failure, unspecified Allergic reaction caused by a drug Qualifiers: Encounter type: initial encounter Qualified Code(s): T78.40XA - Allergy, unspecified, initial encounter Condition: Stable Disposition: ADMITTED OBSERVATION Admitting Provider: Stephanie Unit Admitted: [facility] Referrals: HENNA VAZQUEZ MD [Primary Care Provider] - Follow up as needed
[2018-11-18 12:57] LABS: ABSOLUTE EOSINOPHILS # (AUTO) 0.1 10^3/uL (0.0-0.6); ABSOLUTE LYMPHOCYTES (AUTO) 0.4 10^3/uL (0.5-4.7); ABSOLUTE MONOCYTES (AUTO) 0.3 10^3/uL (0.1-1.4); ABSOLUTE NEUT (AUTO) 5.6 10^3/uL (1.7-8.2); BASOPHILS % (AUTO) 0.3 % (0-2); EOSINOPHILS % (AUTO) 1.4 % (0-6); HEMATOCRIT 36.9 % (36.0-47.0); HEMOGLOBIN 11.9 g/dL (12.0-15.5); LYMPHOCYTES % (AUTO) 6.1 % (13-45); MEAN CORPUSCULAR HEMOGLOBIN 29.3 pg (27.0-33.4); MEAN CORPUSCULAR HGB CONC 32.2 g/dL (32.0-36.0); MEAN CORPUSCULAR VOLUME 91 fl (80-97); MONOCYTES % (AUTO) 5.4 % (3-13); PLATELET COUNT 170 10^3/uL (150-450); RED BLOOD COUNT 4.05 10^6/uL (3.72-5.28); RED CELL DISTRIBUTION WIDTH 14.8 % (11.5-14.0); SEGMENTED NEUTROPHILS % (AUTO) 86.8 % (42-78); TOTAL CELLS COUNTED % (AUTO) 100 %; WHITE BLOOD COUNT 6.5 10^3/uL (4.0-10.5)
--- NOTE | 2018-11-18 12:57 | EKG REPORT ---
SEVERITY:- ABNORMAL ECG - SINUS RHYTHM PROBABLE LEFT VENTRICULAR HYPERTROPHY : Confirmed by: Jennifer Dorsey 18-Nov-2018 12:57:21
[2018-11-18] MEDS ORDERED: ONDANSETRON HCL INJ/PF 4 MG/2 ML SDV IV ONE (13:05)
--- NOTE | 2018-11-18 13:10 | RADIOLOGY REPORT (SQ) ---
EXAM DESCRIPTION: CHEST SINGLE VIEW COMPLETED DATE/TIME: 11/18/2018 1:00 pm REASON FOR STUDY: cough COMPARISON: 12/17/2017. FINDINGS: Single-view chest AP portable upright at approximately 1257 hours. Limited by body habitus and portable technique. Mild vascular congestion with cardiomegaly. Prominent right hilum is suspected to be vascular, chron ic. IMPRESSION: Stable chest. Cardiomegaly and vascular congestion. TECHNICAL DOCUMENTATION: JOB ID: [id number] Reading location - IP/workstation name: [email or web address]
[2018-11-18 13:11] LABS: ALANINE AMINOTRANSFERASE 19 U/L (9-52); ALBUMIN 3.9 g/dL (3.5-5.0); ALKALINE PHOSPHATASE 116 U/L (38-126); ANION GAP 5 (5-19); ASPARTATE AMINO TRANSFERASE 23 U/L (14-36); BILIRUBIN,DIRECT 0.3 mg/dL (0.0-0.4); BILIRUBIN,TOTAL 0.5 mg/dL (0.2-1.3); BLOOD UREA NITROGEN 14 mg/dL (7-20); CALCIUM 10.1 mg/dL (8.4-10.2); CARBON DIOXIDE 34 mmol/L (22-30); CHLORIDE 104 mmol/L (98-107); GLUCOSE 96 mg/dL (75-110); POTASSIUM 4.2 mmol/L (3.6-5.0); SODIUM 143.1 mmol/L (137-145); TOTAL PROTEIN 7.5 g/dL (6.3-8.2)
[2018-11-18 13:36] LABS: NT PRO BNP 2820 pg/mL (5-900)
[2018-11-18 13:39] LABS: TROPONIN I < 0.012 ng/mL
[2018-11-18] MEDS ORDERED: FUROSEMIDE INJ/PF 40 MG/4 ML SDV IV ONE ×2 (14:09→19:00)
[2018-11-18] MEDS ORDERED: ACETAMINOPHEN 325 MG TABLET PO PRN (14:19)
[2018-11-18] MEDS ORDERED: DEXTROSE 40% GEL 15 GM TUBE PO PRN ×2 (14:28)
[2018-11-18] MEDS ORDERED: DEXTROSE 50%-WATER 25 GM/50 ML DISP.SYRIN IV PRN ×2 (14:28)
[2018-11-18] MEDS ORDERED: GLUCAGON,HUMAN RECOMB 1 MG INJ IM PRN (14:28)
[2018-11-18 17:18] LABS: ARTERIAL BLOOD FIO2 2L; ARTERIAL BLOOD H2CO3 2.49 mmol/L (1.05-1.35); ARTERIAL BLOOD HCO3 32.2 mmol/L (20-24); ARTERIAL BLOOD O2 SATURATION 86.1 % (94-98); ARTERIAL BLOOD PH 7.21 (7.35-7.45); ARTERIAL BLOOD PO2 63.2 mmHg (80-100); ARTERIAL BLOOD TOTAL CO2 34.8 mmol/L (21-25)
[2018-11-18 17:21] LABS: ARTERIAL BLOOD PCO2 82.6 mmHg (35-45)
[2018-11-18] MEDS ORDERED: LISINOPRIL 10 MG TABLET PO SCH (17:30)
[2018-11-18] MEDS ORDERED: LISINOPRIL 10 MG TABLET PO ONE (18:30)
[2018-11-18] MEDS: IPRATROPIUM/ALBUTEROL 0.5-2.5 MG/3 ML AMPUL NEB SCH (20:04)
[2018-11-18 20:35] LABS: CREATINE KINASE MB 0.62 ng/mL (<4.55)
[2018-11-18 20:39] LABS: TROPONIN I < 0.012 ng/mL
[2018-11-18] MEDS: FAMOTIDINE INJ/PF 20 MG/2 ML SDV IV SCH (21:32)
[2018-11-18] MEDS: FUROSEMIDE INJ/PF 40 MG/4 ML SDV IV SCH (21:32)
[2018-11-18] MEDS: METHYLPREDNISOLONE INJ 40 MG/1 ML SDV IV SCH (21:32)
[2018-11-18] MEDS: DIPHENHYDRAMINE HCL 25 MG CAPSULE PO SCH (21:33)
[2018-11-18] MEDS: PREGABALIN 100 MG CAPSULE PO SCH (21:33)
[2018-11-18] MEDS: CLONIDINE HCL 0.2 MG TABLET PO SCH (21:33)
[2018-11-18] MEDS ORDERED: FAMOTIDINE INJ/PF 20 MG/2 ML SDV IV SCH (22:00)
[2018-11-19] MEDS: IPRATROPIUM/ALBUTEROL 0.5-2.5 MG/3 ML AMPUL NEB SCH ×4 (02:27→19:59)
[2018-11-19] MEDS: ISOSORBIDE DINITRATE 20 MG TABLET PO SCH ×3 (02:34→21:23)
[2018-11-19 03:27] LABS: CREATINE KINASE MB 0.98 ng/mL (<4.55); TROPONIN I < 0.012 ng/mL
[2018-11-19] MEDS: PREGABALIN 100 MG CAPSULE PO SCH ×3 (05:50→21:22)
[2018-11-19] MEDS: DIPHENHYDRAMINE HCL 25 MG CAPSULE PO SCH (05:50)
[2018-11-19 07:05] LABS: ARTERIAL BLOOD BASE EXCESS 7.2 mmol/L; ARTERIAL BLOOD H2CO3 2.65 mmol/L (1.05-1.35); ARTERIAL BLOOD HCO3 37.2 mmol/L (20-24); ARTERIAL BLOOD O2 SATURATION 98.3 % (94-98); ARTERIAL BLOOD PH 7.24 (7.35-7.45); ARTERIAL BLOOD TOTAL CO2 39.9 mmol/L (21-25)
[2018-11-19 07:17] LABS: ARTERIAL BLOOD FIO2 45%
[2018-11-19 07:18] LABS: ARTERIAL BLOOD PCO2 88.2 mmHg (35-45)
[2018-11-19 08:55] LABS: ABSOLUTE LYMPHOCYTES (AUTO) 0.4 10^3/uL (0.5-4.7); ABSOLUTE MONOCYTES (AUTO) 0.3 10^3/uL (0.1-1.4); BASOPHILS % (AUTO) 0.2 % (0-2); HEMOGLOBIN 11.3 g/dL (12.0-15.5); LYMPHOCYTES % (AUTO) 6.5 % (13-45); MEAN CORPUSCULAR HEMOGLOBIN 28.9 pg (27.0-33.4); MEAN CORPUSCULAR HGB CONC 31.3 g/dL (32.0-36.0); MEAN CORPUSCULAR VOLUME 92 fl (80-97); MONOCYTES % (AUTO) 4.9 % (3-13); PLATELET COUNT 166 10^3/uL (150-450); RED CELL DISTRIBUTION WIDTH 14.9 % (11.5-14.0); SEGMENTED NEUTROPHILS % (AUTO) 88.4 % (42-78); TOTAL CELLS COUNTED % (AUTO) 100 %; WHITE BLOOD COUNT 5.6 10^3/uL (4.0-10.5)
[2018-11-19 09:18] LABS: ANION GAP 5 (5-19); BLOOD UREA NITROGEN 17 mg/dL (7-20); CALCIUM 9.8 mg/dL (8.4-10.2); CARBON DIOXIDE 36 mmol/L (22-30); CHLORIDE 101 mmol/L (98-107); GLUCOSE 178 mg/dL (75-110); POTASSIUM 4.7 mmol/L (3.6-5.0); SODIUM 142.2 mmol/L (137-145)
[2018-11-19 09:27] LABS: CREATINE KINASE MB 0.79 ng/mL (<4.55)
[2018-11-19] MEDS: METOPROLOL SUCCINATE 50 MG TAB.SR.24H PO SCH (09:30)
[2018-11-19] MEDS: AMLODIPINE BESYLATE 10 MG TABLET PO SCH (09:31)
[2018-11-19] MEDS: FUROSEMIDE INJ/PF 40 MG/4 ML SDV IV SCH ×2 (09:31→21:24)
[2018-11-19] MEDS: CLONIDINE HCL 0.2 MG TABLET PO SCH ×2 (09:31→21:23)
[2018-11-19] MEDS: LISINOPRIL 10 MG TABLET PO SCH (09:31)
[2018-11-19] MEDS: CLOPIDOGREL BISULFATE 75 MG TABLET PO SCH (09:31)
[2018-11-19] MEDS: FAMOTIDINE INJ/PF 20 MG/2 ML SDV IV SCH ×2 (09:32→21:25)
[2018-11-19] MEDS: ENOXAPARIN SODIUM INJ 40 MG/0.4 ML DISP.SYRIN SUBCUT SCH (09:32)
[2018-11-19] MEDS: METHYLPREDNISOLONE INJ 40 MG/1 ML SDV IV SCH ×2 (09:32→21:25)
[2018-11-19 09:34] LABS: TROPONIN I < 0.012 ng/mL
[2018-11-19] MEDS: OXYCODONE HCL IR 5 MG TABLET PO PRN ×2 (09:46→21:21)
[2018-11-19] MEDS ORDERED: [UNRECOGNIZED DRUG - OTHER] PO SCH (10:00)
[2018-11-19] MEDS ORDERED: ALOGLIPTIN BENZ PO SCH (10:00)
[2018-11-19] MEDS ORDERED: PIOGLITAZONE PO SCH (10:00)
--- NOTE | 2018-11-19 12:01 | PDOC PROGRESS REPORT ---
Subjective Progress Note for:: 11/19/18 Subjective:: Patient is currently feeling better more alert awake oriented Patient's PCO2 level is high Patient is currently on a BiPAP Patient's denied any throat pain No chest pain no rash no short of breath Reason For Visit: ALLERGIC REACTION, ACUTE CHF, SOB Physical Exam Vital Signs: Temp Pulse Resp BP Pulse Ox 97.5 F 71 12 145/77 H 99 11/19/18 07:00 11/19/18 07:00 11/19/18 07:00 11/19/18 07:00 11/19/18 07:00 Pulse Oximeter Continuous Start: 11/18/18 18:39 Freq: Status: Complete Protocol: Document 11/18/18 18:39 HCR (Rec: 11/18/18 18:39 HCR [id number]) Pulse Oximetry Assessment Oxygen Saturation (92-100) 95 Oxygen Delivery Method Bi-pap Fraction of Inspired Oxygen (FIO2) 45 Equipment Usage Initial Set Up Continuous Pulse Oximeter 24 Hour Charge Charge Now Continuous SpO2 Machine # 4 Pulse Oximeter Continuous Start: 11/18/18 18:55 Freq: RTQ4 Status: Active Protocol: Document 11/19/18 04:00 SFL (Rec: 11/19/18 04:12 SFL [id number]) Pulse Oximetry Assessment Oxygen Saturation (92-100) 97 Oxygen Delivery Method Bi-pap Fraction of Inspired Oxygen (FIO2) 45 Equipment Usage Equipment in Use Continuous SpO2 Machine # 4 Intake & Output 11/18/18 11/19/18 11/20/18 06:59 06:59 06:59 Output Total 1700 Balance -1700 Weight 181.4 kg General appearance: PRESENT: no acute distress, morbidly obese, well-developed, well-nourished Head exam: PRESENT: atraumatic, normocephalic Eye exam: PRESENT: conjunctiva pink, EOMI, PERRLA. ABSENT: scleral icterus Ear exam: PRESENT: normal external ear exam Mouth exam: PRESENT: moist, tongue midline Neck exam: PRESENT: full ROM. ABSENT: carotid bruit, JVD, lymphadenopathy, thyromegaly Cardiovascular exam: PRESENT: RRR. ABSENT: diastolic murmur, rubs, systolic murmur Vascular exam: PRESENT: normal capillary refill GI/Abdominal exam: PRESENT: normal bowel sounds, soft. ABSENT: distended, guarding, mass, organolmegaly, rebound, tenderness Rectal exam: PRESENT: deferred Extremities exam: PRESENT: pedal edema Musculoskeletal exam: PRESENT: ambulatory Neurological exam: PRESENT: alert, awake, oriented to person, oriented to place, oriented to time, oriented to situation, CN II-XII grossly intact. ABSENT: motor sensory deficit Psychiatric exam: PRESENT: appropriate affect, normal mood. ABSENT: homicidal ideation, suicidal ideation Skin exam: PRESENT: dry, intact, warm. ABSENT: cyanosis, rash Results Laboratory Results: 11/19/18 07:49 11/19/18 07:49 11/18/18 11/18/18 11/18/18 12:45 12:45 16:57 WBC 6.5 RBC 4.05 Hgb 11.9 L Hct 36.9 MCV 91 MCH 29.3 MCHC 32.2 RDW 14.8 H Plt Count 170 Seg Neutrophils % 86.8 H Lymphocytes % 6.1 L Monocytes % 5.4 Eosinophils % 1.4 Basophils % 0.3 Absolute Neutrophils 5.6 Absolute Lymphocytes 0.4 L Absolute Monocytes 0.3 Absolute Eosinophils 0.1 Absolute Basophils 0.0 Carbonic Acid 2.49 H HCO3/H2CO3 Ratio 12:1 ABG pH 7.21 L ABG pCO2 82.6 H* ABG pO2 63.2 L ABG HCO3 32.2 H ABG O2 Saturation 86.1 L ABG Base Excess 2.0 FiO2 2L Sodium 143.1 Potassium 4.2 Chloride 104 Carbon Dioxide 34 H Anion Gap 5 BUN 14 Creatinine 0.76 Est GFR ( Amer) > 60 Est GFR (Non-Af Amer) > 60 Glucose 96 Calcium 10.1 Magnesium Total Bilirubin 0.5 AST 23 ALT 19 Alkaline Phosphatase 116 Total Protein 7.5 Albumin 3.9 11/19/18 11/19/18 11/19/18 06:05 07:49 07:49 WBC 5.6 RBC 3.90 Hgb 11.3 L Hct 36.0 MCV 92 MCH 28.9 MCHC 31.3 L RDW 14.9 H Plt Count 166 Seg Neutrophils % 88.4 H Lymphocytes % 6.5 L Monocytes % 4.9 Eosinophils % 0.0 Basophils % 0.2 Absolute Neutrophils 5.0 Absolute Lymphocytes 0.4 L Absolute Monocytes 0.3 Absolute Eosinophils 0.0 Absolute Basophils 0.0 Carbonic Acid 2.65 H HCO3/H2CO3 Ratio 14:1 ABG pH 7.24 L ABG pCO2 88.2 H* ABG pO2 142.0 H ABG HCO3 37.2 H ABG O2 Saturation 98.3 H ABG Base Excess 7.2 FiO2 45% Sodium 142.2 Potassium 4.7 Chloride 101 Carbon Dioxide 36 H Anion Gap 5 BUN 17 Creatinine 0.71 Est GFR ( Amer) > 60 Est GFR (Non-Af Amer) > 60 Glucose 178 H Calcium 9.8 Magnesium 2.0 Total Bilirubin AST ALT Alkaline Phosphatase Total Protein Albumin 11/18/18 11/18/18 11/18/18 12:45 20:00 20:00 Creatine Kinase 39 CK-MB (CK-2) 0.62 Troponin I < 0.012 < 0.012 NT-Pro-B Natriuret Pep 2820 H 11/19/18 11/19/18 11/19/18 02:47 02:47 07:49 Creatine Kinase 52 38 CK-MB (CK-2) 0.98 Troponin I < 0.012 NT-Pro-B Natriuret Pep 11/19/18 11/19/18 07:49 07:49 Creatine Kinase CK-MB (CK-2) 0.79 Troponin I < 0.012 NT-Pro-B Natriuret Pep 3850 H Impressions: Chest X-Ray 11/18/18 12:36 IMPRESSION: Stable chest. Cardiomegaly and vascular congestion. Assessment & Plan - Diagnosis (1) Allergic reaction caused by a drug Qualifiers: Encounter type: initial encounter Qualified Code(s): T78.40XA - Allergy, unspecified, initial encounter Is this a current diagnosis for this admission?: Yes Plan: Currently all resolved (2) CHF (congestive heart failure) Qualifiers: Heart failure type: unspecified Heart failure chronicity: unspecified Qualified Code(s): I50.9 - Heart failure, unspecified Is this a current diagnosis for this admission?: Yes Plan: cont iv lasix f/u with cardilogy (3) Diabetes mellitus type 2 in obese Is this a current diagnosis for this admission?: Yes Plan: Sliding scale (4) History of coronary artery disease Is this a current diagnosis for this admission?: Yes (5) Obstructive sleep apnea hypopnea, moderate Is this a current diagnosis for this admission?: Yes Plan: Patients very noncompliance with the BiPAP f/u with pulmonary (6) Shortness of breath Is this a current diagnosis for this admission?: Yes - Time Time Spent with patient: 15-24 minutes Medications reviewed and adjusted accordingly: Yes Anticipated discharge: Home - Plan Summary Plan Summary: cont current medication adjust bipap setting reapeat abg
[2018-11-19 12:14] LABS: ARTERIAL BLOOD BASE EXCESS 6.2 mmol/L; ARTERIAL BLOOD H2CO3 2.57 mmol/L (1.05-1.35); ARTERIAL BLOOD HCO3 36.3 mmol/L (20-24); ARTERIAL BLOOD O2 SATURATION 96.9 % (94-98); ARTERIAL BLOOD PH 7.25 (7.35-7.45); ARTERIAL BLOOD PO2 108.6 mmHg (80-100); ARTERIAL BLOOD TOTAL CO2 38.9 mmol/L (21-25)
[2018-11-19 12:15] LABS: ARTERIAL BLOOD FIO2 35%
[2018-11-19 12:20] LABS: ARTERIAL BLOOD PCO2 85.3 mmHg (35-45)
--- NOTE | 2018-11-19 12:23 | PDOC H&P ---
History of Present Illness Admission Date/PCP: HENNA VAZQUEZ MD Patient complains of: allegric reaction. sob History of Present Illness: JACKIE CRUZ is a 58 year old female This is a 58-year-old female patient of Dr. Vazquez with a history of the COPD type 2 diabetes morbid obesity sleep apnea congestive heart failure supposed to use a BiPAP but according to the medical record patient is a very noncompliance was complaining of some cough congestions call Dr. Vazquez's office initially prescribed the Zithromax and patient's does not like it and he prescribed the Levaquin and patient start taking the Levaquin and feeling more tightness in the throat and shortness of the breath patient states he took the Benadryl and this did help for the symptoms Patient stated that however not completely resolved and patients came to the emergency department where patients receive the IV Solu-Medrol and IV Benadryl and IV Pepcid Patient symptoms when I saw the patient in the ER was pretty much resolved Patient also noticed to have history of the congestive heart failure and is getting more worse noticed more swelling Patient is requiring 3 L oxygen at home's When I saw the patient was more sleepy and according to the ER doctor was given IV Benadryl Patient at this point order the ABG most likely patient with some hypercapnic respiratory failure because of the noncompliance of the BiPAP Patient still alert awake and answering the questions but go back to the sleeps denied any chest pain denied any short of breath anymore Past Medical History Cardiac Medical History: Reports: Congestive Heart Failure, Coronary Artery Disease, Myocardial Infarction - Multiple 1999, 2004, 2006 Has stents, Hyperli pidema - SINCE 2001, Hypertension Pulmonary Medical History: Reports: Bronchitis, Chronic Obstructive Pulmonary Disease (COPD), Pneumonia Denies: Asthma Neurological Medical History: Denies: Seizures Endocrine Medical History: Reports: Diabetes Mellitus Type 2 Musculoskeltal Medical History: Reports: Arthritis - Hands, Hips and Legs Psychiatric Medical History: Reports: Depression - IN 1989'S OVER IT NOW Hematology: Reports: Anemia Past Surgical History Past Surgical History: Reports: Cardiac Catheterization - MAY 2010, Tonsillectomy - REMOVE AT AGE 12 Denies: Adenoidectomy Social History Smoking Status: Former Smoker Frequency of Alcohol Use: Occasional Hx Recreational Drug Use: Yes Drugs: None Hx Prescription Drug Abuse: Yes Family History Family History: Reviewed & Not Pertinent Parental Family History Reviewed: Yes Children Family History Reviewed: Yes Sibling(s) Family History Reviewed.: Yes Medication/Allergy Home Medications: Alogliptin Rock/Pioglitazone [Alogliptin-Pioglit 25-30 mg Tb] 1 tab PO DAILY 11/18/18 Amlodipine Besylate [Norvasc 10 mg Tablet] 10 mg PO DAILY 11/18/18 Clonidine HCl [Catapres 0.2 mg Tablet] 0.2 mg PO Q12 11/18/18 Clopidogrel Bisulfate [Plavix 75 mg Tablet] 75 mg PO DAILY 11/18/18 Cyclobenzaprine HCl [Flexeril 10 mg Tablet] 10 mg PO Q8 11/18/18 Furosemide [Lasix 40 mg Tablet] 40 mg PO DAILY 11/18/18 Glipizide [Glucotrol 10 mg Tablet] 10 mg PO BID 11/18/18 Isosorbide Dinitrate [Isordil Titradose 20 mg Tablet] 20 mg PO Q12 11/18/18 Lisinopril [Prinivil 40 mg Tablet] 40 mg PO DAILY 11/18/18 Metoprolol Succinate [Toprol XL 100 mg Tablet] 100 mg PO DAILY 11/18/18 Oxycodone HCl [Oxycodone HCl 10 MG Tablet] 10 mg PO Q8HP PRN 11/18/18 Pregabalin [Lyrica 100 mg Capsule] 100 mg PO Q8 11/18/18 Allergies/Adverse Reactions: enalapril Allergy (Verified 11/18/18 11:36) levofloxacin [From Levaquin] Allergy (Verified 11/18/18 12:13) Penicillins Allergy (Verified 11/18/18 11:36) Trimpmq-Fia-Miv Reductase Inhibitor Allergy (Verified 11/18/18 11:36) Review of Systems Constitutional: PRESENT: chills. ABSENT: fever(s), headache(s), weight gain, weight loss Eyes: ABSENT: visual disturbances Ears: ABSENT: hearing changes Cardiovascular: PRESENT: dyspnea on exertion, edema. ABSENT: chest pain, orthropnea, palpitations Respiratory: ABSENT: cough, hemoptysis Gastrointestinal: ABSENT: abdominal pain, constipation, diarrhea, hematemesis, hematochezia, nausea, vomiting Genitourinary: ABSENT: dysuria, hematuria Musculoskeletal: ABSENT: joint swelling Integumentary: ABSENT: rash, wounds Neurological: ABSENT: abnormal gait, abnormal speech, confusion, dizziness, focal weakness, syncope Psychiatric: ABSENT: anxiety, depression, homidical ideation, suicidal ideation Endocrine: ABSENT: cold intolerance, heat intolerance, menstrual abnormalities, polydipsia, polyuria Hematologic/Lymphatic: ABSENT: easy bleeding, easy bruising, lymphadenopathy Physical Exam Vital Signs: Temp Pulse Resp BP Pulse Ox 99.4 F 119 H 28 H 186/107 H 95 11/18/18 11:48 11/18/18 11:48 11/18/18 13:01 11/18/18 13:01 11/18/18 12:49 Intake & Output 11/17/18 11/18/18 11/19/18 06:59 06:59 06:59 Weight 181.8 kg General appearance: PRESENT: no acute distress, morbidly obese, well-developed, well-nourished Head exam: PRESENT: atraumatic, normocephalic Eye exam: PRESENT: conjunctiva pink, EOMI, PERRLA. ABSENT: scleral icterus Ear exam: PRESENT: normal external ear exam Mouth exam: PRESENT: moist, tongue midline Neck exam: PRESENT: full ROM. ABSENT: carotid bruit, JVD, lymphadenopathy, thyromegaly Respiratory exam: PRESENT: decreased breath sounds Cardiovascular exam: PRESENT: RRR. ABSENT: diastolic murmur, rubs, systolic murmur Pulses: PRESENT: normal dorsalis pedis pul, +2 pedal pulses bilateral Vascular exam: PRESENT: normal capillary refill GI/Abdominal exam: PRESENT: normal bowel sounds, soft. ABSENT: distended, guarding, mass, organolmegaly, rebound, tenderness Rectal exam: PRESENT: deferred Extremities exam: PRESENT: pedal edema Neurological exam: PRESENT: alert, awake, oriented to person, oriented to place, oriented to time, oriented to situation. ABSENT: motor sensory deficit Psychiatric exam: PRESENT: appropriate affect, normal mood. ABSENT: homicidal ideation, suicidal ideation Skin exam: PRESENT: dry, intact, warm. ABSENT: cyanosis, rash Results Laboratory Results: 11/18/18 12:45 11/18/18 12:45 11/18/18 11/18/18 12:45 12:45 WBC 6.5 RBC 4.05 Hgb 11.9 L Hct 36.9 MCV 91 MCH 29.3 MCHC 32.2 RDW 14.8 H Plt Count 170 Seg Neutrophils % 86.8 H Lymphocytes % 6.1 L Monocytes % 5.4 Eosinophils % 1.4 Basophils % 0.3 Absolute Neutrophils 5.6 Absolute Lymphocytes 0.4 L Absolute Monocytes 0.3 Absolute Eosinophils 0.1 Absolute Basophils 0.0 Sodium 143.1 Potassium 4.2 Chloride 104 Carbon Dioxide 34 H Anion Gap 5 BUN 14 Creatinine 0.76 Est GFR ( Amer) > 60 Est GFR (Non-Af Amer) > 60 Glucose 96 Calcium 10.1 Total Bilirubin 0.5 AST 23 ALT 19 Alkaline Phosphatase 116 Total Protein 7.5 Albumin 3.9 11/18/18 12:45 Troponin I < 0.012 NT-Pro-B Natriuret Pep 2820 H Impressions: Chest X-Ray 11/18/18 12:36 IMPRESSION: Stable chest. Cardiomegaly and vascular congestion. Assessment & Plan - Diagnosis (1) Allergic reaction caused by a drug Qualifiers: Encounter type: initial encounter Qualified Code(s): T78.40XA - Allergy, unspecified, initial encounter Is this a current diagnosis for this admission?: Yes Plan: Currently all improving after the initial ER treatments Will continues IV Solu-Medrol and p.o. Benadryl for the next 24 hours (2) CHF (congestive heart failure) Qualifiers: Heart failure type: unspecified Heart failure chronicity: unspecified Qualified Code(s): I50.9 - Heart failure, unspecified Is this a current diagnosis for this admission?: Yes Plan: Start the patient on IV Lasix and consult the cardiology (3) Diabetes mellitus type 2 in obese Is this a current diagnosis for this admission?: Yes Plan: Sliding scale (4) History of coronary artery disease Is this a current diagnosis for this admission?: Yes (5) Obstructive sleep apnea hypopnea, moderate Is this a current diagnosis for this admission?: Yes Plan: Patients very noncompliance with the BiPAP f/u with pulmonary (6) Shortness of breath Is this a current diagnosis for this admission?: Yes Plan: Morbid combinations from the CHF and chronic respiratory failure (7) Acute hypercapnic respiratory failure Is this a current diagnosis for this admission?: Yes Plan: The patient on a BiPAP adjusted BiPAP settings consult by Dr. Ross - Time Time Spent: 50 to 70 Minutes Medications reviewed and adjusted accordingly: Yes Anticipated discharge: Home - Inpatient Certification Based on my medical assessment, after consideration of the patient's comorbiditi es, presenting symptoms, or acuity I expect that the services needed warrant INPATIENT care.: Yes I certify that my determination is in accordance with my understanding of [facility]'s requirements for reasonable and necessary INPATIENT services [42 CFR 412.3e].: Yes Medical Necessity: Significant Comorbidiites Make Outpatient Treatment Too Risky, Need Close Monitoring Due to Risk of Patient Decompensation Post Hospital Care: D/C Manager Safe Documentation - Plan Summary Plan Summary: With the patient in a telemetry bed consult the pulmonary and cardiology Adjust the BiPAP setting Discussed with the patient about compliance with the medication and a BiPAP
[2018-11-19] MEDS: INSULIN LISPRO 100 UNIT/ML 3 ML VIAL SUBCUT PRN (12:24)
[2018-11-20] MEDS: IPRATROPIUM/ALBUTEROL 0.5-2.5 MG/3 ML AMPUL NEB SCH ×4 (02:34→20:37)
[2018-11-20] MEDS: PREGABALIN 100 MG CAPSULE PO SCH ×3 (06:16→23:05)
[2018-11-20 07:41] LABS: ABSOLUTE LYMPHOCYTES (AUTO) 0.5 10^3/uL (0.5-4.7); ABSOLUTE MONOCYTES (AUTO) 0.4 10^3/uL (0.1-1.4); ABSOLUTE NEUT (AUTO) 7.6 10^3/uL (1.7-8.2); BASOPHILS % (AUTO) 0.1 % (0-2); HEMATOCRIT 36.6 % (36.0-47.0); HEMOGLOBIN 11.6 g/dL (12.0-15.5); LYMPHOCYTES % (AUTO) 5.5 % (13-45); MEAN CORPUSCULAR HEMOGLOBIN 29.1 pg (27.0-33.4); MEAN CORPUSCULAR HGB CONC 31.8 g/dL (32.0-36.0); MEAN CORPUSCULAR VOLUME 92 fl (80-97); MONOCYTES % (AUTO) 5.2 % (3-13); PLATELET COUNT 179 10^3/uL (150-450); RED BLOOD COUNT 3.99 10^6/uL (3.72-5.28); RED CELL DISTRIBUTION WIDTH 14.8 % (11.5-14.0); SEGMENTED NEUTROPHILS % (AUTO) 89.2 % (42-78); TOTAL CELLS COUNTED % (AUTO) 100 %; WHITE BLOOD COUNT 8.5 10^3/uL (4.0-10.5)
[2018-11-20 08:03] LABS: ANION GAP 5 (5-19); BLOOD UREA NITROGEN 29 mg/dL (7-20); CALCIUM 10.2 mg/dL (8.4-10.2); CARBON DIOXIDE 39 mmol/L (22-30); CHLORIDE 99 mmol/L (98-107); GLUCOSE 195 mg/dL (75-110); POTASSIUM 5.3 mmol/L (3.6-5.0); SODIUM 142.5 mmol/L (137-145)
[2018-11-20] MEDS: ISOSORBIDE DINITRATE 20 MG TABLET PO SCH ×2 (10:57→23:05)
[2018-11-20] MEDS: AMLODIPINE BESYLATE 10 MG TABLET PO SCH (10:58)
[2018-11-20] MEDS: CLOPIDOGREL BISULFATE 75 MG TABLET PO SCH (10:58)
[2018-11-20] MEDS: METOPROLOL SUCCINATE 50 MG TAB.SR.24H PO SCH (10:59)
[2018-11-20] MEDS: LISINOPRIL 10 MG TABLET PO SCH (10:59)
[2018-11-20] MEDS: CLONIDINE HCL 0.2 MG TABLET PO SCH ×2 (10:59→23:05)
[2018-11-20] MEDS: FAMOTIDINE INJ/PF 20 MG/2 ML SDV IV SCH ×2 (11:00→23:05)
[2018-11-20] MEDS: FUROSEMIDE INJ/PF 40 MG/4 ML SDV IV SCH ×2 (11:00→23:06)
[2018-11-20] MEDS: METHYLPREDNISOLONE INJ 40 MG/1 ML SDV IV SCH ×2 (11:00→23:06)
[2018-11-20] MEDS: ENOXAPARIN SODIUM INJ 40 MG/0.4 ML DISP.SYRIN SUBCUT SCH (11:00)
--- NOTE | 2018-11-20 11:44 | PDOC PROGRESS REPORT ---
Subjective Progress Note for:: 11/20/18 Subjective:: Patient is feeling much better patient's family is on the bedside Patient's denied any chest pain denied any shortness of breath Reason For Visit: ALLERGIC REACTION, ACUTE CHF, SOB Physical Exam Vital Signs: Temp Pulse Resp BP Pulse Ox 97.4 F 60 13 145/66 H 96 11/20/18 08:06 11/20/18 08:18 11/20/18 08:18 11/20/18 08:06 11/20/18 08:18 Pulse Oximeter Continuous Start: 11/18/18 18:39 Freq: Status: Complete Protocol: Document 11/18/18 18:39 HCR (Rec: 11/18/18 18:39 HCR [id number]) Pulse Oximetry Assessment Oxygen Saturation (92-100) 95 Oxygen Delivery Method Bi-pap Fraction of Inspired Oxygen (FIO2) 45 Equipment Usage Initial Set Up Continuous Pulse Oximeter 24 Hour Charge Charge Now Continuous SpO2 Machine # 4 Pulse Oximeter Continuous Start: 11/18/18 18:55 Freq: RTQ4 Status: Active Protocol: Document 11/20/18 08:18 NSC (Rec: 11/20/18 08:31 NSC [id number]) Pulse Oximetry Assessment Oxygen Saturation (92-100) 96 Oxygen Delivery Method Bi-pap Fraction of Inspired Oxygen (FIO2) 30 Equipment Usage Equipment in Use Continuous SpO2 Machine # N 4 Intake & Output 11/19/18 11/20/18 11/21/18 06:59 06:59 06:59 Intake Total 1160 Output Total 1700 950 Balance -1700 210 Weight 181.4 kg 183.5 kg General appearance: PRESENT: no acute distress, well-developed, well-nourished Head exam: PRESENT: atraumatic, normocephalic Eye exam: PRESENT: conjunctiva pink, EOMI, PERRLA. ABSENT: scleral icterus Ear exam: PRESENT: normal external ear exam Mouth exam: PRESENT: moist, tongue midline Neck exam: PRESENT: full ROM. ABSENT: carotid bruit, JVD, lymphadenopathy, thyromegaly Respiratory exam: PRESENT: clear to auscultation michelle Cardiovascular exam: PRESENT: RRR. ABSENT: diastolic murmur, rubs, systolic murmur Pulses: PRESENT: normal dorsalis pedis pul, +2 pedal pulses bilateral Vascular exam: PRESENT: normal capillary refill GI/Abdominal exam: PRESENT: normal bowel sounds, soft. ABSENT: distended, guarding, mass, organolmegaly, rebound, tenderness Rectal exam: PRESENT: deferred Extremities exam: PRESENT: pedal edema Musculoskeletal exam: PRESENT: ambulatory Neurological exam: PRESENT: alert, awake, oriented to person, oriented to place, oriented to time, oriented to situation, CN II-XII grossly intact. ABSENT: motor sensory deficit Psychiatric exam: PRESENT: appropriate affect, normal mood. ABSENT: homicidal ideation, suicidal ideation Skin exam: PRESENT: dry, intact, warm. ABSENT: cyanosis, rash Results Laboratory Results: 11/20/18 07:17 11/20/18 07:17 11/19/18 11/20/18 11/20/18 11:57 07:17 07:17 WBC 8.5 RBC 3.99 Hgb 11.6 L Hct 36.6 MCV 92 MCH 29.1 MCHC 31.8 L RDW 14.8 H Plt Count 179 Seg Neutrophils % 89.2 H Lymphocytes % 5.5 L Monocytes % 5.2 Eosinophils % 0.0 Basophils % 0.1 Absolute Neutrophils 7.6 Absolute Lymphocytes 0.5 Absolute Monocytes 0.4 Absolute Eosinophils 0.0 Absolute Basophils 0.0 Carbonic Acid 2.57 H HCO3/H2CO3 Ratio 14:1 ABG pH 7.25 L ABG pCO2 85.3 H* ABG pO2 108.6 H ABG HCO3 36.3 H ABG O2 Saturation 96.9 ABG Base Excess 6.2 FiO2 35% Sodium 142.5 Potassium 5.3 H Chloride 99 Carbon Dioxide 39 H Anion Gap 5 BUN 29 H Creatinine 0.94 Est GFR ( Amer) > 60 Est GFR (Non-Af Amer) > 60 Glucose 195 H Calcium 10.2 Magnesium 2.3 11/18/18 11/18/18 11/18/18 12:45 20:00 20:00 Creatine Kinase 39 CK-MB (CK-2) 0.62 Troponin I < 0.012 < 0.012 NT-Pro-B Natriuret Pep 2820 H 11/19/18 11/19/18 11/19/18 02:47 02:47 07:49 Creatine Kinase 52 38 CK-MB (CK-2) 0.98 Troponin I < 0.012 NT-Pro-B Natriuret Pep 11/19/18 11/19/1818 07:49 07:49 07:17 Creatine Kinase CK-MB (CK-2) 0.79 Troponin I < 0.012 NT-Pro-B Natriuret Pep 3850 H 1150 H Impressions: Chest X-Ray 11/18/18 12:36 IMPRESSION: Stable chest. Cardiomegaly and vascular congestion. Assessment & Plan - Diagnosis (1) Allergic reaction caused by a drug Qualifiers: Encounter type: initial encounter Qualified Code(s): T78.40XA - Allergy, unspecified, initial encounter Is this a current diagnosis for this admission?: Yes Plan: Currently all improving after the initial ER treatments Will continues IV Solu-Medrol and p.o. Benadryl for the next 24 hours (2) CHF (congestive heart failure) Qualifiers: Heart failure type: unspecified Heart failure chronicity: unspecified Qualified Code(s): I50.9 - Heart failure, unspecified Is this a current diagnosis for this admission?: Yes Plan: Start the patient on IV Lasix and consult the cardiology (3) Diabetes mellitus type 2 in obese Is this a current diagnosis for this admission?: Yes Plan: Sliding scale (4) History of coronary artery disease Is this a current diagnosis for this admission?: Yes (5) Obstructive sleep apnea hypopnea, moderate Is this a current diagnosis for this admission?: Yes Plan: Patients very noncompliance with the BiPAP f/u with pulmonary (6) Shortness of breath Is this a current diagnosis for this admission?: Yes Plan: Morbid combinations from the CHF and chronic respiratory failure (7) Acute hypercapnic respiratory failure Is this a current diagnosis for this admission?: Yes Plan: The patient on a BiPAP adjusted BiPAP settings consult by Dr. Ross - Time Time Spent with patient: 15-24 minutes Medications reviewed and adjusted accordingly: Yes Anticipated discharge: Other Within: Other - Plan Summary Plan Summary: The ABG this morning Follow-up with the pulmonary Dr. Ross
[2018-11-20 12:26] LABS: ARTERIAL BLOOD BASE EXCESS 11.6 mmol/L; ARTERIAL BLOOD H2CO3 2.43 mmol/L (1.05-1.35); ARTERIAL BLOOD HCO3 40.8 mmol/L (20-24); ARTERIAL BLOOD O2 SATURATION 97.4 % (94-98); ARTERIAL BLOOD PH 7.32 (7.35-7.45); ARTERIAL BLOOD PO2 109.4 mmHg (80-100); ARTERIAL BLOOD TOTAL CO2 43.3 mmol/L (21-25)
[2018-11-20 12:33] LABS: ARTERIAL BLOOD FIO2 6L
[2018-11-20 12:37] LABS: ARTERIAL BLOOD PCO2 80.8 mmHg (35-45)
[2018-11-20] MEDS: INSULIN LISPRO 100 UNIT/ML 3 ML VIAL SUBCUT PRN ×2 (13:41→23:04)
[2018-11-20] MEDS: OXYCODONE HCL IR 5 MG TABLET PO PRN (18:45)
[2018-11-21] MEDS: IPRATROPIUM/ALBUTEROL 0.5-2.5 MG/3 ML AMPUL NEB SCH ×4 (02:17→19:57)
[2018-11-21] MEDS: PREGABALIN 100 MG CAPSULE PO SCH ×3 (06:27→23:17)
[2018-11-21] MEDS: OXYCODONE HCL IR 5 MG TABLET PO PRN ×2 (06:30→23:17)
[2018-11-21 07:24] LABS: ABSOLUTE LYMPHOCYTES (AUTO) 0.6 10^3/uL (0.5-4.7); ABSOLUTE MONOCYTES (AUTO) 0.4 10^3/uL (0.1-1.4); BASOPHILS % (AUTO) 0.1 % (0-2); HEMOGLOBIN 11.1 g/dL (12.0-15.5); LYMPHOCYTES % (AUTO) 8.9 % (13-45); MEAN CORPUSCULAR HGB CONC 31.6 g/dL (32.0-36.0); MEAN CORPUSCULAR VOLUME 92 fl (80-97); MONOCYTES % (AUTO) 5.7 % (3-13); PLATELET COUNT 179 10^3/uL (150-450); RED BLOOD COUNT 3.82 10^6/uL (3.72-5.28); RED CELL DISTRIBUTION WIDTH 14.6 % (11.5-14.0); SEGMENTED NEUTROPHILS % (AUTO) 85.3 % (42-78); TOTAL CELLS COUNTED % (AUTO) 100 %
[2018-11-21 07:43] LABS: BLOOD UREA NITROGEN 27 mg/dL (7-20); CALCIUM 9.8 mg/dL (8.4-10.2); GLUCOSE 161 mg/dL (75-110); POTASSIUM 4.7 mmol/L (3.6-5.0)
[2018-11-21 08:13] LABS: CHLORIDE 97 mmol/L (98-107); SODIUM 139.8 mmol/L (137-145)
[2018-11-21 08:17] LABS: ANION GAP 4 (5-19); CARBON DIOXIDE 39 mmol/L (22-30)
[2018-11-21] MEDS: AMLODIPINE BESYLATE 10 MG TABLET PO SCH (09:49)
[2018-11-21] MEDS: CLOPIDOGREL BISULFATE 75 MG TABLET PO SCH (09:49)
[2018-11-21] MEDS: METHYLPREDNISOLONE INJ 40 MG/1 ML SDV IV SCH ×2 (09:50→23:19)
[2018-11-21] MEDS: METOPROLOL SUCCINATE 50 MG TAB.SR.24H PO SCH (09:50)
[2018-11-21] MEDS: LISINOPRIL 10 MG TABLET PO SCH (09:50)
[2018-11-21] MEDS: FUROSEMIDE INJ/PF 40 MG/4 ML SDV IV SCH ×2 (09:50→23:19)
[2018-11-21] MEDS: CLONIDINE HCL 0.2 MG TABLET PO SCH ×2 (09:50→23:17)
[2018-11-21] MEDS: FAMOTIDINE INJ/PF 20 MG/2 ML SDV IV SCH ×2 (09:51→23:19)
[2018-11-21] MEDS: ISOSORBIDE DINITRATE 20 MG TABLET PO SCH ×2 (09:51→23:17)
[2018-11-21] MEDS: ENOXAPARIN SODIUM INJ 40 MG/0.4 ML DISP.SYRIN SUBCUT SCH (09:51)
--- NOTE | 2018-11-21 11:56 | PDOC PROGRESS REPORT ---
Subjective Progress Note for:: 11/21/18 Subjective:: Patient is currently doing well Patients did not wear the BiPAP machine at night according to the nursing staff patient is refusing at and according to the patient's nurses did not put it Patient is denied any chest pain denied any shortness of the breath Patient's denied any other symptoms Reason For Visit: ALLERGIC REACTION, ACUTE CHF, SOB Physical Exam Vital Signs: Temp Pulse Resp BP Pulse Ox 98.2 F 57 L 22 H 133/70 H 98 11/21/18 08:05 11/21/18 08:05 11/21/18 08:05 11/21/18 08:05 11/21/18 08:05 Pulse Oximeter Continuous Start: 11/18/18 18:39 Freq: Status: Complete Protocol: Document 11/18/18 18:39 HCR (Rec: 11/18/18 18:39 HCR [id number]) Pulse Oximetry Assessment Oxygen Saturation (92-100) 95 Oxygen Delivery Method Bi-pap Fraction of Inspired Oxygen (FIO2) 45 Equipment Usage Initial Set Up Continuous Pulse Oximeter 24 Hour Charge Charge Now Continuous SpO2 Machine # 4 Pulse Oximeter Continuous Start: 11/18/18 18:55 Freq: RTQ4 Status: Active Protocol: Document 11/21/18 08:00 NSC (Rec: 11/21/18 08:11 [facility] [id number]) Pulse Oximetry Assessment Oxygen Saturation (92-100) 97 Oxygen Flow Rate (L/min) 4 Oxygen Delivery Method Nasal Cannula Fraction of Inspired Oxygen (FIO2) 36 Equipment Usage Equipment in Use Continuous SpO2 Machine # N 4 Intake & Output 11/20/18 11/21/18 11/22/18 06:59 06:59 06:59 Intake Total 1160 536 Output Total 950 Balance 210 536 Weight 183.5 kg 181.8 kg General appearance: PRESENT: no acute distress, well-developed, well-nourished Head exam: PRESENT: atraumatic, normocephalic Eye exam: PRESENT: conjunctiva pink, EOMI, PERRLA. ABSENT: scleral icterus Ear exam: PRESENT: normal external ear exam Mouth exam: PRESENT: moist, tongue midline Neck exam: PRESENT: full ROM. ABSENT: carotid bruit, JVD, lymphadenopathy, thyromegaly Respiratory exam: PRESENT: clear to auscultation michelle Cardiovascular exam: PRESENT: RRR. ABSENT: diastolic murmur, rubs, systolic murmur Pulses: PRESENT: normal dorsalis pedis pul, +2 pedal pulses bilateral Vascular exam: PRESENT: normal capillary refill GI/Abdominal exam: PRESENT: normal bowel sounds, soft. ABSENT: distended, guarding, mass, organolmegaly, rebound, tenderness Rectal exam: PRESENT: deferred Extremities exam: PRESENT: pedal edema Neurological exam: PRESENT: alert, awake, oriented to person, oriented to place, oriented to time, oriented to situation, CN II-XII grossly intact. ABSENT: motor sensory deficit Psychiatric exam: PRESENT: appropriate affect, normal mood. ABSENT: homicidal ideation, suicidal ideation Skin exam: PRESENT: dry, intact, warm. ABSENT: cyanosis, rash Results Laboratory Results: 11/21/18 06:27 11/21/18 06:27 11/20/18 11/21/18 11/21/18 12:06 06:27 06:27 WBC 7.0 RBC 3.82 Hgb 11.1 L Hct 35.0 L MCV 92 MCH 29.0 MCHC 31.6 L RDW 14.6 H Plt Count 179 Seg Neutrophils % 85.3 H Lymphocytes % 8.9 L Monocytes % 5.7 Eosinophils % 0.0 Basophils % 0.1 Absolute Neutrophils 6.0 Absolute Lymphocytes 0.6 Absolute Monocytes 0.4 Absolute Eosinophils 0.0 Absolute Basophils 0.0 Carbonic Acid 2.43 H HCO3/H2CO3 Ratio 16:1 ABG pH 7.32 L ABG pCO2 80.8 H* ABG pO2 109.4 H ABG HCO3 40.8 H ABG O2 Saturation 97.4 ABG Base Excess 11.6 FiO2 6L Sodium 139.8 Potassium 4.7 Chloride 97 L Carbon Dioxide 39 H Anion Gap 4 L BUN 27 H Creatinine 0.83 Est GFR ( Amer) > 60 Est GFR (Non-Af Amer) > 60 Glucose 161 H Calcium 9.8 Magnesium 2.2 11/18/18 11/18/18 11/18/18 12:45 20:00 20:00 Creatine Kinase 39 CK-MB (CK-2) 0.62 Troponin I < 0.012 < 0.012 NT-Pro-B Natriuret Pep 2820 H 11/19/18 11/19/18 11/19/18 02:47 02:47 07:49 Creatine Kinase 52 38 CK-MB (CK-2) 0.98 Troponin I < 0.012 NT-Pro-B Natriuret Pep 11/19/18 11/19/18 11/20/18 07:49 07:49 07:17 Creatine Kinase CK-MB (CK-2) 0.79 Troponin I < 0.012 NT-Pro-B Natriuret Pep 3850 H 1150 H 11/21/18 06:27 Creatine Kinase CK-MB (CK-2) Troponin I NT-Pro-B Natriuret Pep 986 H Impressions: Chest X-Ray 11/18/18 12:36 IMPRESSION: Stable chest. Cardiomegaly and vascular congestion. Assessment & Plan - Diagnosis (1) Allergic reaction caused by a drug Qualifiers: Encounter type: initial encounter Qualified Code(s): T78.40XA - Allergy, unspecified, initial encounter Is this a current diagnosis for this admission?: Yes Plan: Currently all improving after the initial ER treatments Will continues IV Solu-Medrol and p.o. Benadryl for the next 24 hours (2) CHF (congestive heart failure) Qualifiers: Heart failure type: unspecified Heart failure chronicity: unspecified Qualified Code(s): I50.9 - Heart failure, unspecified Is this a current diagnosis for this admission?: Yes Plan: Start the patient on IV Lasix and consult the cardiology (3) Diabetes mellitus type 2 in obese Is this a current diagnosis for this admission?: Yes Plan: Sliding scale (4) History of coronary artery disease Is this a current diagnosis for this admission?: Yes (5) Obstructive sleep apnea hypopnea, moderate Is this a current diagnosis for this admission?: Yes Plan: This with the patient about the importance of the BiPAP (6) Shortness of breath Is this a current diagnosis for this admission?: Yes (7) Acute hypercapnic respiratory failure Is this a current diagnosis for this admission?: Yes Plan: The patient on a BiPAP adjusted BiPAP settings consult by Dr. Ross - Time Time Spent with patient: 15-24 minutes Medications reviewed and adjusted accordingly: Yes Within: Other - Plan Summary Plan Summary: Continues current medication
[2018-11-21 12:07] LABS: ARTERIAL BLOOD BASE EXCESS 12.5 mmol/L; ARTERIAL BLOOD H2CO3 2.33 mmol/L (1.05-1.35); ARTERIAL BLOOD HCO3 41.2 mmol/L (20-24); ARTERIAL BLOOD O2 SATURATION 95.2 % (94-98); ARTERIAL BLOOD PH 7.34 (7.35-7.45); ARTERIAL BLOOD PO2 83.6 mmHg (80-100); ARTERIAL BLOOD TOTAL CO2 43.6 mmol/L (21-25)
[2018-11-21 12:16] LABS: ARTERIAL BLOOD FIO2 30%
[2018-11-21 12:17] LABS: ARTERIAL BLOOD PCO2 77.4 mmHg (35-45)
[2018-11-22] MEDS: IPRATROPIUM/ALBUTEROL 0.5-2.5 MG/3 ML AMPUL NEB SCH ×4 (01:48→19:45)
[2018-11-22] MEDS: PREGABALIN 100 MG CAPSULE PO SCH ×3 (05:27→23:14)
[2018-11-22] MEDS: ISOSORBIDE DINITRATE 20 MG TABLET PO SCH ×2 (09:25→23:14)
[2018-11-22] MEDS: METOPROLOL SUCCINATE 50 MG TAB.SR.24H PO SCH (09:26)
[2018-11-22] MEDS: CLOPIDOGREL BISULFATE 75 MG TABLET PO SCH (09:26)
[2018-11-22] MEDS: AMLODIPINE BESYLATE 10 MG TABLET PO SCH (09:26)
[2018-11-22] MEDS: CLONIDINE HCL 0.2 MG TABLET PO SCH ×2 (09:26→23:14)
[2018-11-22] MEDS: LISINOPRIL 10 MG TABLET PO SCH (09:26)
[2018-11-22] MEDS: METHYLPREDNISOLONE INJ 40 MG/1 ML SDV IV SCH (09:26)
[2018-11-22] MEDS: FUROSEMIDE INJ/PF 40 MG/4 ML SDV IV SCH ×2 (09:26→23:16)
[2018-11-22] MEDS: FAMOTIDINE INJ/PF 20 MG/2 ML SDV IV SCH ×2 (09:26→23:16)
[2018-11-22] MEDS: ENOXAPARIN SODIUM INJ 40 MG/0.4 ML DISP.SYRIN SUBCUT SCH (09:27)
[2018-11-22] MEDS: INSULIN LISPRO 100 UNIT/ML 3 ML VIAL SUBCUT PRN ×3 (09:35→23:15)
--- NOTE | 2018-11-22 22:20 | PDOC PROGRESS REPORT ---
Subjective Progress Note for:: 11/22/18 Subjective:: Patient was admitted by the weekend for the management of allergic reaction to Levaquin and exacerbation of chronic diastolic heart failure Reason For Visit: ALLERGIC REACTION, ACUTE CHF, SOB Physical Exam Vital Signs: Temp Pulse Resp BP Pulse Ox 97.9 F 70 20 162/79 H 99 11/22/18 15:53 11/22/18 19:45 11/22/18 19:45 11/22/18 15:53 11/22/18 19:45 Pulse Oximeter Continuous Start: 11/18/18 18:39 Freq: Status: Complete Protocol: Document 11/18/18 18:39 HCR (Rec: 11/18/18 18:39 HCR [id number]) Pulse Oximetry Assessment Oxygen Saturation (92-100) 95 Oxygen Delivery Method Bi-pap Fraction of Inspired Oxygen (FIO2) 45 Equipment Usage Initial Set Up Continuous Pulse Oximeter 24 Hour Charge Charge Now Continuous SpO2 Machine # 4 Pulse Oximeter Continuous Start: 11/18/18 18:55 Freq: RTQ4 Status: Active Protocol: Document 11/22/18 19:45 SFL (Rec: 11/22/18 20:07 SFL [id number]) Pulse Oximetry Assessment Oxygen Saturation (92-100) 99 Oxygen Flow Rate (L/min) 2 Oxygen Delivery Method Nasal Cannula Equipment Usage Equipment in Use Continuous SpO2 Machine # 4 Intake & Output 11/21/18 11/22/18 11/23/18 06:59 06:59 06:59 Intake Total 536 1609 768 Output Total 1500 1700 Balance 536 109 -932 Weight 181.8 kg 179.9 kg General appearance: PRESENT: no acute distress Eye exam: PRESENT: PERRLA Respiratory exam: PRESENT: clear to auscultation michelle Cardiovascular exam: PRESENT: +S1, +S2 GI/Abdominal exam: PRESENT: soft Neurological exam: PRESENT: alert Results Laboratory Results: 11/21/18 06:27 11/21/18 06:27 11/18/18 11/18/18 11/18/18 12:45 20:00 20:00 Creatine Kinase 39 CK-MB (CK-2) 0.62 Troponin I < 0.012 < 0.012 NT-Pro-B Natriuret Pep 2820 H 11/19/18 11/19/18 11/19/18 02:47 02:47 07:49 Creatine Kinase 52 38 CK-MB (CK-2) 0.98 Troponin I < 0.012 NT-Pro-B Natriuret Pep 11/19/18 11/19/18 11/20/18 07:49 07:49 07:17 Creatine Kinase CK-MB (CK-2) 0.79 Troponin I < 0.012 NT-Pro-B Natriuret Pep 3850 H 1150 H 11/21/18 06:27 Creatine Kinase CK-MB (CK-2) Troponin I NT-Pro-B Natriuret Pep 986 H Impressions: Chest X-Ray 11/18/18 12:36 IMPRESSION: Stable chest. Cardiomegaly and vascular congestion. Assessment & Plan - Diagnosis (1) Acute diastolic heart failure Is this a current diagnosis for this admission?: Yes (2) Allergic reaction caused by a drug Qualifiers: Encounter type: initial encounter Qualified Code(s): T78.40XA - Allergy, unspecified, initial encounter Is this a current diagnosis for this admission?: Yes Plan: Discontinue Solu-Medrol
[2018-11-23] MEDS: IPRATROPIUM/ALBUTEROL 0.5-2.5 MG/3 ML AMPUL NEB SCH ×4 (02:03→20:12)
[2018-11-23] MEDS: PREGABALIN 100 MG CAPSULE PO SCH ×2 (06:23→13:51)
[2018-11-23] MEDS: FAMOTIDINE INJ/PF 20 MG/2 ML SDV IV SCH (10:23)
[2018-11-23] MEDS: METOPROLOL SUCCINATE 50 MG TAB.SR.24H PO SCH (10:24)
[2018-11-23] MEDS: AMLODIPINE BESYLATE 10 MG TABLET PO SCH (10:24)
[2018-11-23] MEDS: CLOPIDOGREL BISULFATE 75 MG TABLET PO SCH (10:24)
[2018-11-23] MEDS: LISINOPRIL 10 MG TABLET PO SCH (10:24)
[2018-11-23] MEDS: ISOSORBIDE DINITRATE 20 MG TABLET PO SCH (10:25)
[2018-11-23] MEDS: CLONIDINE HCL 0.2 MG TABLET PO SCH (10:25)
[2018-11-23] MEDS: ENOXAPARIN SODIUM INJ 40 MG/0.4 ML DISP.SYRIN SUBCUT SCH (10:26)
[2018-11-23] MEDS: FUROSEMIDE INJ/PF 40 MG/4 ML SDV IV SCH (10:27)
[2018-11-23] MEDS: OXYCODONE HCL IR 5 MG TABLET PO PRN (10:33)
[2018-11-23] MEDS: INSULIN LISPRO 100 UNIT/ML 3 ML VIAL SUBCUT PRN ×2 (12:50→17:35)
--- NOTE | 2018-11-23 16:42 | PDOC CONSULTATION ---
Consultation Consult Date: 11/23/18 Attending physician:: HENNA VAZQUEZ Consult reason:: Dyspnea History of Present Illness Admission Date/PCP: 11/18/18 15:00 HENNA VAZQUEZ MD History of Present Illness: JACKIE CRUZ is a 58 year old female, was added after several days of increasing shortness of breath and a cough she admits to some chills but no fever no hemoptysis his PPD was negative dates unknown no history of asthma or cystic fibrosis as a child she admits to being exposed adults that and passive smoke as a child and adolescent. He denies having ever smoked but admits to also being exposed to passive smoke as an adult. 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 Outside dog no recent travel. Wears O2 as well as CPAP at home. He received a new machine yet to try out. She denies angina-like chest pain sleeps on 3 pillows occasional PND occasional nocturnal cough chronic edema. Has a diagnosis of ELLIS and she had 2 or 3 myocardial infarctions in the past Past Medical History Cardiac Medical History: Reports: Congestive Heart Failure, Coronary Artery Disease, Myocardial Infarction - Multiple 1999, 2004, 2006 Has stents, Hyperlipidema - SINCE 2001, Hypertension Pulmonary Medical History: Reports: Bronchitis, Chronic Obstructive Pulmonary Disease (COPD), Pneumonia Denies: Asthma Neurological Medical History: Denies: Seizures Endocrine Medical History: Reports: Diabetes Mellitus Type 2 Renal/ Medical History: Denies: Nephrolithiasis GI Medical History: Denies: Cirrhosis, Crohn's Disease, Ulcerative Colitis Musculoskeltal Medical History: Reports: Arthritis - Hands, Hips and Legs Psychiatric Medical History: Reports: Depression - IN 1989'S OVER IT NOW Traumatic Medical History: Denies: Traumatic Brain Injury Hematology: Reports: Anemia Infectious Medical History: Denies: HIV Past Surgical History Past Surgical History: Reports: Cardiac Catheterization - MAY 2010, Tonsillectomy - REMOVE AT AGE 12 Denies: Adenoidectomy Social History Information Source: Patient, [facility] Records Smoking Status: Never Smoker Cigarettes Packs Per Day: 0 Last Time Smoked: 11/21/2009 Passive smoke exposure as: Both Frequency of Alcohol Use: Occasional Hx Recreational Drug Use: Yes Drugs: None Hx Prescription Drug Abuse: Yes Do you have pets?: Yes Have you had any respiratory illnesses as a child?: No Have you been exposed to any sick contacts recently?: No Have you had any recent respiratory illnesses?: Yes Have you travelled outside of [place] in the past 12 months?: Yes - Advance Directive Resuscitation Status: Full Code Family History Family History: CAD, CVA, DM, Hyperlipidemia, Hypertension, Malignancy Parental Family History Reviewed: Yes Children Family History Reviewed: Yes Sibling(s) Family History Reviewed.: Yes Medication/Allergy Home Medications: Alogliptin Rock/Pioglitazone [Alogliptin-Pioglit 25-30 mg Tb] 1 tab PO DAILY 11/18/18 Amlodipine Besylate [Norvasc 10 mg Tablet] 10 mg PO DAILY 11/18/18 Clonidine HCl [Catapres 0.2 mg Tablet] 0.2 mg PO Q12 11/18/18 Clopidogrel Bisulfate [Plavix 75 mg Tablet] 75 mg PO DAILY 11/18/18 Cyclobenzaprine HCl [Flexeril 10 mg Tablet] 10 mg PO Q8 11/18/18 Furosemide [Lasix 40 mg Tablet] 40 mg PO DAILY 11/18/18 Glipizide [Glucotrol 10 mg Tablet] 10 mg PO BID 11/18/18 Isosorbide Dinitrate [Isordil Titradose 20 mg Tablet] 20 mg PO Q12 11/18/18 Lisinopril [Prinivil 40 mg Tablet] 40 mg PO DAILY 11/18/18 Metoprolol Succinate [Toprol XL 100 mg Tablet] 100 mg PO DAILY 11/18/18 Oxycodone HCl [Oxycodone HCl 10 MG Tablet] 10 mg PO Q8HP PRN 11/18/18 Pregabalin [Lyrica 100 mg Capsule] 100 mg PO Q8 11/18/18 Allergies/Adverse Reactions: enalapril Allergy (Verified 11/18/18 11:36) levofloxacin [From Levaquin] Allergy (Verified 11/18/18 12:13) Penicillins Allergy (Verified 11/18/18 11:36) Tryaank-Mfz-Kli Reductase Inhibitor Allergy (Verified 11/18/18 11:36) Review of Systems Constitutional: PRESENT: chills, fatigue, weakness, weight gain. ABSENT: headache(s), night sweats Eyes: ABSENT: visual disturbances Ears: ABSENT: hearing changes Nose, Mouth, and Throat: ABSENT: mouth pain, sore throat Cardiovascular: PRESENT: dyspnea on exertion, edema, orthropnea Respiratory: PRESENT: cough, dyspnea, sputum. ABSENT: hemoptysis Gastrointestinal: ABSENT: abdominal pain, bloating, coffee ground emesis, hematemesis, hematochezia, melena Genitourinary: ABSENT: dysuria, hematuria Musculoskeletal: ABSENT: joint swelling Integumentary: ABSENT: pruritus, rash Psychiatric: ABSENT: homidical ideation, suicidal ideation Endocrine: ABSENT: cold intolerance, heat intolerance Hematologic/Lymphatic: ABSENT: easy bruising, lymphadenopathy Allergic/Immunologic: ABSENT: seasonal rhinorrhea Physical Exam Vital Signs: Temp Pulse Resp BP Pulse Ox 98.3 F 68 14 130/60 H 96 11/23/18 10:34 11/23/18 14:05 11/23/18 14:05 11/23/18 10:34 11/23/18 15:55 Pulse Oximeter Continuous Start: 11/18/18 18:39 Freq: Status: Complete Protocol: Document 11/18/18 18:39 HCR (Rec: 11/18/18 18:39 HCR [id number]) Pulse Oximetry Assessment Oxygen Saturation (92-100) 95 Oxygen Delivery Method Bi-pap Fraction of Inspired Oxygen (FIO2) 45 Equipment Usage Initial Set Up Continuous Pulse Oximeter 24 Hour Charge Charge Now Continuous SpO2 Machine # 4 Pulse Oximeter Continuous Start: 11/18/18 18:55 Freq: RTQ4 Status: Active Protocol: Document 11/23/18 15:55 LDA (Rec: 11/23/18 15:56 LDA [id number]) Pulse Oximetry Assessment Oxygen Saturation (92-100) 96 Oxygen Flow Rate (L/min) 2 Oxygen Delivery Method Nasal Cannula Fraction of Inspired Oxygen (FIO2) 28 Equipment Usage Equipment in Use Continuous SpO2 Machine # 4 Intake & Output 11/22/18 11/23/18 11/24/18 06:59 06:59 06:59 Intake Total 1609 993 600 Output Total 1500 2250 1000 Balance 109 -1257 -400 Weight 179.9 kg General appearance: PRESENT: no acute distress, cooperative, disheveled, morbidly obese Head exam: PRESENT: atraumatic, normocephalic Eye exam: PRESENT: conjunctiva pale, EOMI. ABSENT: nystagmus, scleral icterus Mouth exam: PRESENT: dry mucosa, neck supple, tongue midline Neck exam: ABSENT: carotid bruit, JVD, lymphadenopathy, thyromegaly, tracheal deviation, tracheostomy Respiratory exam: PRESENT: decreased breath sounds, prolonged expiratory phas, rales, rhonchi, symmetrical, unlabored. ABSENT: retraction, stridor, tachypnea Cardiovascular exam: PRESENT: irregular rhythm Pulses: PRESENT: normal radial pulses GI/Abdominal exam: PRESENT: soft. ABSENT: tenderness Gentrourinary exam: PRESENT: indwelling catheter Extremities exam: ABSENT: calf tenderness, clubbing, joint swelling Musculoskeletal exam: ABSENT: deformity, dislocation Neurological exam: PRESENT: alert, awake Psychiatric exam: PRESENT: appropriate affect Skin exam: PRESENT: dry, warm Results Laboratory Results: 11/21/18 06:27 11/21/18 06:27 11/18/18 11/18/18 11/18/18 12:45 20:00 20:00 Creatine Kinase 39 CK-MB (CK-2) 0.62 Troponin I < 0.012 < 0.012 NT-Pro-B Natriuret Pep 2820 H 11/19/18 11/19/18 11/19/18 02:47 02:47 07:49 Creatine Kinase 52 38 CK-MB (CK-2) 0.98 Troponin I < 0.012 NT-Pro-B Natriuret Pep 11/19/18 11/19/18 11/20/18 07:49 07:49 07:17 Creatine Kinase CK-MB (CK-2) 0.79 Troponin I < 0.012 NT-Pro-B Natriuret Pep 3850 H 1150 H 11/21/18 06:27 Creatine Kinase CK-MB (CK-2) Troponin I NT-Pro-B Natriuret Pep 986 H Impressions: Chest X-Ray 11/18/18 12:36 IMPRESSION: Stable chest. Cardiomegaly and vascular congestion. Assessment & Plan - Diagnosis (1) CHF (congestive heart failure) Qualifiers: Heart failure type: unspecified Heart failure chronicity: unspecified Qualified Code(s): I50.9 - Heart failure, unspecified Is this a current diagnosis for this admission?: Yes Plan: Gentle diuresis (2) Acute hypercapnic respiratory failure Is this a current diagnosis for this admission?: Yes Plan: NIPPV use home CPAP (3) Hypoxemia requiring supplemental oxygen Is this a current diagnosis for this admission?: Yes Plan: Continue supplemental oxygen (4) Obesity, morbid, BMI 50 or higher Is this a current diagnosis for this admission?: Yes Plan: Nutrition consult history of coronary artery disease doubt patient will be a candidate for bariatric surgery (5) Obstructive sleep apnea hypopnea, moderate Is this a current diagnosis for this admission?: Yes Plan: NIPPV (6) Type 2 diabetes mellitus 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
[2018-11-23 20:14] VITALS: BP 130/60
--- NOTE | 2018-11-23 21:23 | PDOC DISCHARGE SUMMARY ---
General - Admit/Disc Date/PCP Admission Date/Primary Care Provider: 11/18/18 15:00 HENNA VAZQUEZ MD Discharge Date: 11/23/18 - Discharge Diagnosis (1) Acute diastolic heart failure Is this a current diagnosis for this admission?: Yes (2) Allergic reaction caused by a drug Is this a current diagnosis for this admission?: Yes (3) Diabetes mellitus type 2 in obese Is this a current diagnosis for this admission?: Yes (4) History of coronary artery disease Is this a current diagnosis for this admission?: Yes (5) Obesity, morbid, BMI 50 or higher Is this a current diagnosis for this admission?: Yes (6) Obstructive sleep apnea hypopnea, moderate Is this a current diagnosis for this admission?: Yes - Additional Information Resuscitation Status: Full Code Discharge Diet: Cardiac, Diabetic Discharge Activity: Activity As Tolerated, Balance Activity w/Rest, Weigh Daily Home Medications: Alogliptin [place]ck/Pioglitazone [Alogliptin-Pioglit 25-30 mg Tb] 1 tab PO DAILY 11/18/18 Amlodipine Besylate [Norvasc 10 mg Tablet] 10 mg PO DAILY 11/18/18 Clonidine HCl [Catapres 0.2 mg Tablet] 0.2 mg PO Q12 11/18/18 Clopidogrel Bisulfate [Plavix 75 mg Tablet] 75 mg PO DAILY 11/18/18 Furosemide [Lasix 40 mg Tablet] 40 mg PO DAILY 11/18/18 Glipizide [Glucotrol 10 mg Tablet] 10 mg PO BID 11/18/18 Isosorbide Dinitrate [Isordil Titradose 20 mg Tablet] 20 mg PO Q12 11/18/18 Lisinopril [Prinivil 40 mg Tablet] 40 mg PO DAILY 11/18/18 Metoprolol Succinate [Toprol XL 100 mg Tablet] 100 mg PO DAILY 11/18/18 Oxycodone HCl [Oxycodone HCl 10 MG Tablet] 10 mg PO Q8HP PRN 11/18/18 Pregabalin [Lyrica 100 mg Capsule] 100 mg PO Q8 11/18/18 History of Present Illness History of Present Illness: JACKIE CRUZ is a 58 year old female.She was admitted when she presented with probable allergy symptoms to antibiotic Levaquin and also acute exacerbation of chronic diastolic heart failure with a background of morbid obesity body mass index 62 Hospital Course Hospital Course: Patient was admitted for the management of drug reaction with Levaquin,she has erythema affecting the torso and the neck., She was treated with intravenous Solu-Medrol.There was improvement in symptoms she wants to go home today Physical Exam Vital Signs: Temp Pulse Resp BP Pulse Ox 97.4 F 70 16 130/60 H 96 11/23/18 20:12 11/23/18 20:13 11/23/18 20:13 11/23/18 20:12 11/23/18 20:13 Pulse Oximeter Continuous Start: 11/18/18 18:39 Freq: Status: Complete Protocol: Document 11/18/18 18:39 HCR (Rec: 11/18/18 18:39 HCR [id number]) Pulse Oximetry Assessment Oxygen Saturation (92-100) 95 Oxygen Delivery Method Bi-pap Fraction of Inspired Oxygen (FIO2) 45 Equipment Usage Initial Set Up Continuous Pulse Oximeter 24 Hour Charge Charge Now Continuous SpO2 Machine # 4 Pulse Oximeter Continuous Start: 11/18/18 18:55 Freq: RTQ4 Status: Discharge Protocol: Document 11/23/18 20:13 LDA (Rec: 11/23/18 20:21 LDA [id number]) Pulse Oximetry Assessment Oxygen Saturation (92-100) 96 Oxygen Flow Rate (L/min) 2 Oxygen Delivery Method Nasal Cannula Fraction of Inspired Oxygen (FIO2) 28 Equipment Usage Equipment Discontinued Continuous SpO2 Machine # 4 Intake & Output 11/22/18 11/23/18 11/24/18 06:59 06:59 06:59 Intake Total 1609 993 600 Output Total 1500 2250 1000 Balance 109 -1257 -400 Weight 179.9 kg General appearance: PRESENT: no acute distress, well-developed, well-nourished Head exam: PRESENT: atraumatic, normocephalic Eye exam: PRESENT: conjunctiva pink, EOMI, PERRLA Ear exam: PRESENT: normal external ear exam Mouth exam: PRESENT: moist, tongue midline Neck exam: PRESENT: full ROM Respiratory exam: PRESENT: clear to auscultation michelle Cardiovascular exam: PRESENT: RRR, +S1, +S2 Pulses: PRESENT: normal dorsalis pedis pul, +2 pedal pulses bilateral Vascular exam: PRESENT: normal capillary refill GI/Abdominal exam: PRESENT: normal bowel sounds, soft Rectal exam: PRESENT: deferred Neurological exam: PRESENT: alert, CN II-XII grossly intact Psychiatric exam: PRESENT: appropriate affect, normal mood Skin exam: PRESENT: dry, intact, warm Results Laboratory Results: 11/21/18 06:27 11/21/18 06:27 11/18/18 20:42 Blood Blood Culture - Final NO GROWTH IN 5 DAYS 11/18/18 20:00 Blood Blood Culture - Final NO GROWTH IN 5 DAYS 11/18/18 11/18/18 11/18/18 12:45 20:00 20:00 Creatine Kinase 39 CK-MB (CK-2) 0.62 Troponin I < 0.012 < 0.012 NT-Pro-B Natriuret Pep 2820 H 11/19/18 11/19/18 11/19/18 02:47 02:47 07:49 Creatine Kinase 52 38 CK-MB (CK-2) 0.98 Troponin I < 0.012 NT-Pro-B Natriuret Pep 11/19/18 11/19/18 11/20/18 07:49 07:49 07:17 Creatine Kinase CK-MB (CK-2) 0.79 Troponin I < 0.012 NT-Pro-B Natriuret Pep 3850 H 1150 H 11/21/18 06:27 Creatine Kinase CK-MB (CK-2) Troponin I NT-Pro-B Natriuret Pep 986 H Impressions: Chest X-Ray 11/18/18 12:36 IMPRESSION: Stable chest. Cardiomegaly and vascular congestion. Qualifiers - * PATIENT BEING DISCHARGED WITH ANY OF THE FOLLOWING DIAGNOSIS: No
== END 2018-11-23 20:30 | disposition home or self-care (01) | DRG 291 ==
LOC: ER 11:35 → EH 14:33 → OBSVTOIN 15:00 → 5 15:55
PROVIDERS: ADMIT Internal Medicine; ATTEND Internal Medicine
DX: I11.0 Hypertensive heart disease with heart failure (principal); J96.02 Acute respiratory failure with hypercapnia; J96.10 Chronic respiratory failure, unspecified whether with hypoxia or hypercapnia; Z68.44 Body mass index [BMI] 60.0-69.9, adult; Z99.81 Dependence on supplemental oxygen; E66.01 Morbid (severe) obesity due to excess calories; D64.9 Anemia, unspecified; E11.9 Type 2 diabetes mellitus without complications; T36.8X5A Adverse effect of other systemic antibiotics, initial encounter; I50.33 Acute on chronic diastolic (congestive) heart failure; E78.5 Hyperlipidemia, unspecified; M19.042 Primary osteoarthritis, left hand; M19.041 Primary osteoarthritis, right hand; M16.0 Bilateral primary osteoarthritis of hip; I25.10 Atherosclerotic heart disease of native coronary artery without angina pectoris; G47.33 Obstructive sleep apnea (adult) (pediatric); I25.2 Old myocardial infarction; Z91.19 Patient's noncompliance with other medical treatment and regimen; Z95.5 Presence of coronary angioplasty implant and graft; Z87.891 Personal history of nicotine dependence; Z79.84 Long term (current) use of oral hypoglycemic drugs; Z88.1 Allergy status to other antibiotic agents
CPT/HCPCS: 36415; 36600; 71045; 80048; 80053; 82550; 82553; 82803; 82962; 83735; 83880; 84484; 85025; 87040; 93005; 93010; 94640; 94660; 94762; 96372; 96374; 96375; 99285; J0171; J1200; J1650; J1815; J1940; J2405; J2920; J2930; J7620; S0028

== ENCOUNTER 2020-05-01 12:47 | Emergency (ER) | payer MEDICARE, MEDICAID ==
--- NOTE | 2020-05-01 13:16 | ER Document Report ---
ED Medical Screen (RME) - General Chief Complaint: Abdominal Swelling Stated Complaint: ABDOMINAL SWELLING Time Seen by Provider: 05/01/20 13:07 Primary Care Provider: HENNA VAZQUEZ MD [Primary Care Provider] - Follow up as needed Mode of Arrival: Wheelchair Information source: Patient Notes: 59-year-old female presented to ED for complaint of swelling to both legs and abdomen. She does have cellulitis to the right leg. She has a history of high blood pressure congestive heart failure A. fib COPD diabetes type 2 and tonsils on adenoids. She states she rarely drinks less than once every 5 to 6 months. She states she went to her chronic pain management doctor and they sent her over to the emergency room. She states she does have a history of high blood pressure but she did not take her blood pressure this morning before coming the pain management because the blood pressure medicine makes her sleepy and she had to drive here and back home and she did not want to fall asleep on the way. Patient is alert oriented respirations regular nonlabored. She is on 2 L of oxygen at home. She states she feels very short of breath and feels like her pulse is racing and that is where it does when she gets her A. fib. I have greeted and performed a rapid initial assessment of this patient. A comprehensive ED assessment and evaluation of the patient, analysis of test results and completion of medical decision making process will be conducted by an additional ED providers. TRAVEL OUTSIDE OF THE [place] IN LAST 30 DAYS: No - Related Data Allergies/Adverse Reactions: enalapril Allergy (Verified 11/18/18 11:36) levofloxacin [From Levaquin] Allergy (Verified 11/18/18 12:13) Penicillins Allergy (Verified 11/18/18 11:36) [place]-Yft-Eyy Reductase Inhibitor Allergy (Verified 11/18/18 11:36) Past Medical History - Past Medical History Cardiac Medical History: Reports: Hx Coronary Artery Disease, Hx Heart Attack - Multiple 1999, 2004, 2007 Has stents, Hx Hypercholesterolemia - SINCE 2001, Hx Hypertension Pulmonary Medical History: Reports: Hx Bronchitis, Hx COPD, Hx Pneumonia Neurological Medical History: Denies: Hx Cerebrovascular Accident Endocrine Medical History: Reports: Hx Diabetes Mellitus Type 2 Renal/ Medical History: Denies: Hx Peritoneal Dialysis GI Medical History: Denies: Hx Cirrhosis, Hx Crohn's Disease, Hx Ulcerative Colitis Musculoskeltal Medical History: Reports Hx Arthritis - Hands, Hips and Legs Psychiatric Medical History: Reports: Hx Depression - IN 1989'S OVER IT NOW Past Surgical History: Reports: Hx Abdominal Surgery - C SECTION OCT 1997, Hx Cardiac Catheterization - MAY 2010, Hx Tonsillectomy - REMOVE AT AGE 12 - Immunizations Immunizations up to date: No Hx Diphtheria, Pertussis, Tetanus Vaccination: No Physical Exam - Vital signs Vitals: Temp Pulse Resp BP Pulse Ox 99.0 F 104 H 24 H 165/110 H 97 05/01/20 12:56 05/01/20 12:56 05/01/20 12:56 05/01/20 12:56 05/01/20 12:56 Course - Vital Signs Vital signs: Temp Pulse Resp BP Pulse Ox 99.0 F 104 H 24 H 165/110 H 97 05/01/20 12:56 05/01/20 12:56 05/01/20 12:56 05/01/20 12:56 05/01/20 12:56 Doctor's Discharge - Discharge Referrals: HENNA VAZQUEZ MD [Primary Care Provider] - Follow up as needed
[2020-05-01 14:41] LABS: ABSOLUTE LYMPHOCYTES (AUTO) 0.6 10^3/uL (0.5-4.7); ABSOLUTE MONOCYTES (AUTO) 0.5 10^3/uL (0.1-1.4); BASOPHILS % (AUTO) 0.1 % (0-2); EOSINOPHILS % (AUTO) 0.6 % (0-6); HEMATOCRIT 40.5 % (36.0-47.0); HEMOGLOBIN 12.8 g/dL (12.0-15.5); LYMPHOCYTES % (AUTO) 7.9 % (13-45); MEAN CORPUSCULAR HGB CONC 31.6 g/dL (32.0-36.0); MEAN CORPUSCULAR VOLUME 89 fl (80-97); MONOCYTES % (AUTO) 7.1 % (3-13); PLATELET COUNT 158 10^3/uL (150-450); RED BLOOD COUNT 4.56 10^6/uL (3.72-5.28); RED CELL DISTRIBUTION WIDTH 16.6 % (11.5-14.0); SEGMENTED NEUTROPHILS % (AUTO) 84.3 % (42-78); TOTAL CELLS COUNTED % (AUTO) 100 %; WHITE BLOOD COUNT 7.1 10^3/uL (4.0-10.5)
--- NOTE | 2020-05-01 14:44 | ER Document Report ---
ED GI/ - General Chief Complaint: Edema Stated Complaint: ABDOMINAL SWELLING Time Seen by Provider: 05/01/20 13:07 Primary Care Provider: HENNA VAZQUEZ MD [Primary Care Provider] - Follow up as needed Mode of Arrival: Wheelchair Information source: Patient TRAVEL OUTSIDE OF THE [place] IN LAST 30 DAYS: No - HPI Patient complains to provider of: Abdominal pain - This is a 59-year-old female presented to the emergency room today stating that she is got abdominal pain and fullness which is been ongoing this time for approximately 2 to 3 weeks. However she has been seen approximately 3 times since the beginning of the year she generally goes over to [place] states that she was over there 2 weeks ago had a CAT scan they were really unable to identify any causative agent for her discomfort. She describes it as a fullness with some nausea she is really not able to eat she is had a very pendulous abdomen that she says "has never touched her thighs before 3 weeks ago.". No: Diarrhea, Dysuria, Hematuria Onset: Other - Proximately 3 weeks Severity in ED: Moderate Context: denies: Bad food, Lifting, Out of the country travel - Related Data Allergies/Adverse Reactions: enalapril Allergy (Verified 11/18/18 11:36) levofloxacin [From Levaquin] Allergy (Verified 11/18/18 12:13) Penicillins Allergy (Verified 11/18/18 11:36) Ubysfij-[id number]-Mgp Reductase Inhibitor Allergy (Verified 11/18/18 11:36) Home Medications: Lasix, Isosorbide, Lantus, metoprolol Past Medical History - General Information source: Patient - Social History Smoking Status: Never Smoker Family History: CAD, CVA, DM, Hyperlipidemia, Hypertension, Malignancy Patient has homicidal ideation: No - Past Medical History Cardiac Medical History: Reports: Hx Coronary Artery Disease, Hx Heart Attack - Multiple 1999, 2004, 2007 Has stents, Hx Hypercholesterolemia - SINCE 2001, Hx Hypertension Pulmonary Medical History: Reports: Hx Bronchitis, Hx COPD, Hx Pneumonia Neurological Medical History: Denies: Hx Cerebrovascular Accident Endocrine Medical History: Reports: Hx Diabetes Mellitus Type 2 Renal/ Medical History: Denies: Hx Peritoneal Dialysis GI Medical History: Denies: Hx Cirrhosis, Hx Crohn's Disease, Hx Ulcerative Colitis Musculoskeletal Medical History: Reports Hx Arthritis - Hands, Hips and Legs Psychiatric Medical History: Reports: Hx Depression - IN S OVER IT NOW Past Surgical History: Reports: Hx Abdominal Surgery - C SECTION OCT 1997, Hx Cardiac Catheterization - MAY 2010, Hx Tonsillectomy - REMOVE AT AGE 12 - Immunizations Immunizations up to date: No Hx Diphtheria, Pertussis, Tetanus Vaccination: No Hx Pneumococcal Vaccination: 11/21/15 Review of Systems - Review of Systems Constitutional: Malaise, Weakness, Weight gain. denies: Chills, Diaphoresis, Fever EENT: No symptoms reported Cardiovascular: No symptoms reported Respiratory: Short of breath Gastrointestinal: Abdomen distended, Abdominal pain, Nausea Genitourinary: No symptoms reported Female Genitourinary: No symptoms reported Musculoskeletal: No symptoms reported Skin: No symptoms reported Hematologic/Lymphatic: No symptoms reported Neurological/Psychological: No symptoms reported Physical Exam - Vital signs Vitals: Temp Pulse Resp BP Pulse Ox 99.0 F 104 H 24 H 165/110 H 97 05/01/20 12:56 05/01/20 12:56 05/01/20 12:56 05/01/20 12:56 05/01/20 12:56 Interpretation: Normal - General General appearance: Appears well, Alert - HEENT Head: Normocephalic, Atraumatic Eyes: Normal Pupils: PERRL - Respiratory Respiratory status: No respiratory distress Chest status: Nontender Breath sounds: Normal Chest palpation: Normal - Cardiovascular Rhythm: Regular Heart sounds: Normal auscultation Murmur: No - Abdominal Inspection: Normal, Morbidly Obese Distension: No distension, Distended. No: Tympanitic, Fluid wave Bowel sounds: Hypoactive Tenderness: Nontender, Tender Organomegaly: No organomegaly - Back Back: Normal, Nontender - Extremities General upper extremity: Normal inspection, Nontender, Normal color, Normal ROM, Normal temperature General lower extremity: Normal inspection, Nontender, Normal color, Normal ROM, Normal temperature, Normal weight bearing. No: Reyes's sign - Neurological Neuro grossly intact: Yes Cognition: Normal Orientation: AAOx4 [place] Coma Scale Eye Opening: Spontaneous Harsh Coma Scale Verbal: Oriented Harsh Coma Scale Motor: Obeys Commands Harhs Coma Scale Total: 15 Speech: Normal Motor strength normal: LUE, RUE, LLE, RLE Sensory: Normal - Psychological Associated symptoms: Normal affect, Normal mood - Skin Skin Temperature: Warm Skin Moisture: Dry Skin Color: Normal Course - Re-evaluation Re-evalutation: 05/01/20 18:56 This is a 59-year-old female who although frustrated is been very pleasant with me. She opened up our encounter with stating that she usually goes to [place] she had been here 3 times this year for this abdominal discomfort which nobody is really ever been able to come to the bottom of since the beginning of the year. She states she actually does not tend to prefer this facility that she had a bad experience in the past which I apologized for but told her that I would do everything I could to exceed her expectations today. I checked on her multiple times throughout the visit she requested some Lasix to help decrease some fluid which I obliged I did in fact get the CT results back suggestive of a mild hepatic cirrhosis with a very small amount of ascites I discussed this at length with the patient. Collaborated with discussed that she is effectively had this abdominal pain which led her to come to the emergency room at least 3 times this year twice to a facility that she has a preference for and out this facility. This is obviously a woman who is had discomfort that she is really not been able to get the answer for I did discuss with her I need to get gastroenterology involved. She states she has never been referred to a payroll and benefits manager I told her that I wanted to provide her with that referral today. And by all means she should return to the emergency room for absolutely any change or worsening condition she seemed agreeable to that. She did have 2 requests. She requested that I provide her something to help her with her headache. And she asked that I provide her with some Lasix to help her decrease some of this inflammation and edema. I agreed and will provide her with a small course of both of these to follow-up with a payroll and benefits manager within 3 to 5 days. - Vital Signs Vital signs: Temp Pulse Resp BP Pulse Ox 99.0 F 104 H 13 212/134 H 96 05/01/20 13:10 05/01/20 12:56 05/01/20 15:01 05/01/20 15:01 05/01/20 15:01 - Laboratory Result Diagrams: 05/01/20 14:27 05/01/20 14:27 Laboratory results interpreted by me: 05/01/20 05/01/20 05/01/20 14:27 14:27 16:25 MCHC 31.6 L RDW 16.6 H Lymph % (Auto) 7.9 L Seg Neutrophils % 84.3 H Carbon Dioxide 31 H Glucose 127 H Alkaline Phosphatase 243 H Urine Protein 100 H Urine Urobilinogen 4.0 H Labs- All tests 24 hr 05/01/20 05/01/20 05/01/20 14:27 14:27 14:27 WBC 7.1 RBC 4.56 Hgb 12.8 Hct 40.5 MCV 89 MCH 28.0 MCHC 31.6 L RDW 16.6 H Plt Count 158 Lymph % (Auto) 7.9 L Sac % (Auto) 7.1 Eos % (Auto) 0.6 Baso % (Auto) 0.1 Absolute Neuts (auto) 6.0 Absolute Lymphs (auto) 0.6 Absolute Monos (auto) 0.5 Absolute Eos (auto) 0.0 Absolute Basos (auto) 0.0 Seg Neutrophils % 84.3 H Sodium 141.6 Potassium 4.1 Chloride 104 Carbon Dioxide 31 H Anion Gap 7 BUN 16 Creatinine 0.93 Est GFR ( Amer) > 60 Est GFR (MDRD) Non-Af > 60 Glucose 127 H Calcium 10.0 Total Bilirubin 0.7 Direct Bilirubin 0.2 Neonat Total Bilirubin Not Reportable Neonat Direct Bilirubin Not Reportable Neonat Indirect Bili Not Reportable AST 24 ALT 10 Alkaline Phosphatase 243 H Troponin I < 0.012 Total Protein 7.7 Albumin 4.3 Lipase 56.4 Urine Color Urine Appearance Urine pH Ur Specific [place] Urine Protein Urine Glucose (UA) Urine Ketones Urine Blood Urine Nitrite Urine Bilirubin Urine Urobilinogen Ur Leukocyte Esterase Urine WBC (Auto) Urine RBC (Auto) U Hyaline Cast (Auto) Squamous Epi Cells Auto Urine Ascorbic Acid 05/01/20 16:25 WBC RBC Hgb Hct MCV MCH MCHC RDW Plt Count Lymph % (Auto) Sac % (Auto) Eos % (Auto) Baso % (Auto) Absolute Neuts (auto) Absolute Lymphs (auto) Absolute Monos (auto) Absolute Eos (auto) Absolute Basos (auto) Seg Neutrophils % Sodium Potassium Chloride Carbon Dioxide Anion Gap BUN Creatinine Est GFR ( Amer) Est GFR (MDRD) Non-Af Glucose Calcium Total Bilirubin Direct Bilirubin Neonat Total Bilirubin Neonat Direct Bilirubin Neonat Indirect Bili AST ALT Alkaline Phosphatase Troponin I Total Protein Albumin Lipase Urine Color YELLOW Urine Appearance CLEAR Urine pH 6.0 Ur Specific [place] 1.019 Urine Protein 100 H Urine Glucose (UA) NEGATIVE Urine Ketones NEGATIVE Urine Blood NEGATIVE Urine Nitrite NEGATIVE Urine Bilirubin NEGATIVE Urine Urobilinogen 4.0 H Ur Leukocyte Esterase NEGATIVE Urine WBC (Auto) 1 Urine RBC (Auto) 0 U Hyaline Cast (Auto) 3 Squamous Epi Cells Auto 4 Urine Ascorbic Acid NEGATIVE - Diagnostic Test Radiology results interpreted by me: 05/01/20 18:55 Abdomen/Pelvis CT 05/01/20 14:37 IMPRESSION: 1. Shrunken nodular contour of the liver suggesting underlying hepatic cirrhosis. There is mild hepatic steatosis. Clinical correlation is recommended. 2. Small amount of ascites. Chest X-Ray 05/01/20 14:39 IMPRESSION: CARDIAC ENLARGEMENT. VASCULAR CONGESTION. Discharge - Discharge Clinical Impression: Abdomen enlarged, Bilateral lower extremity edema Condition: Fair Disposition: HOME, SELF-CARE Instructions: Evaluation of Upper Abdominal Pain ([facility]) Additional Instructions: And they agree that she must follow-up with a payroll and benefits manager. Within 3 to 5 days. She should follow-up with her PMD within 24 hours and certainly return to the emergency room tomorrow for no change in the pain or worsening sooner. Abdominal Pain There are many causes of abdominal pain. Pain can mean a serious problem requiring surgery (such as appendicitis). It can also be an innocent problem that goes away on its own (such as a viral infection). Often, time must pass to determine the cause of pain. The physician does not feel that hospitalization is necessary, at present. Things may change within the next 24 hours. Call the doctor or come back for re- examination if any problems occur, such as: (1) Pain that becomes more severe, steady, or becomes concentrated in one specific area. Also, pain that is more severe with movement or coughing. (2) Vomiting that persists or becomes more frequent. (3) Blood in the vomitus, urine, or bowel movements. Blood in the stool may have a tarry or black appearance. (4) Shaking chills or fever greater than 100 degrees F. (5) The abdomen becomes more distended or swollen. (6) Bowel movements cease. (7) Failure to improve as expected. Call Dr Rader tomorrow morning for an appointment as soon as possible please state that you were seen and evaluated in the emergency room. Prescriptions: Butalb/Acetaminophen/Caffeine [Fioricet (50-325-40 mg) Tablet] 1 tab PO Q4H #20 tab Furosemide [Lasix 40 mg Tablet] 40 mg PO QAM #10 tablet Referrals: HENNA VAZQUEZ MD [Primary Care Provider] - Follow up as needed TONY RADER MD [ACTIVE STAFF] - Follow up as needed
[2020-05-01 15:01] LABS: ALBUMIN 4.3 g/dL (3.5-5.0); ALKALINE PHOSPHATASE 243 U/L (38-126); ANION GAP 7 (5-19); ASPARTATE AMINO TRANSFERASE 24 U/L (14-36); BILIRUBIN,DIRECT 0.2 mg/dL (0.0-0.4); BILIRUBIN,TOTAL 0.7 mg/dL (0.2-1.3); BLOOD UREA NITROGEN 16 mg/dL (7-20); CARBON DIOXIDE 31 mmol/L (22-30); CHLORIDE 104 mmol/L (98-107); GLUCOSE 127 mg/dL (75-110); POTASSIUM 4.1 mmol/L (3.6-5.0); TOTAL PROTEIN 7.7 g/dL (6.3-8.2)
--- NOTE | 2020-05-01 15:16 | RADIOLOGY REPORT (SQ) ---
EXAM DESCRIPTION: CHEST SINGLE VIEW IMAGES COMPLETED DATE/TIME: 05/01/2020 3:04 pm REASON FOR STUDY: sob COMPARISON: 03/06/2019 NUMBER OF VIEWS: One view. TECHNIQUE: Single frontal radiographic view of the chest acquired. LIMITATIONS: Body habitus. Overlying support apparatus. FINDINGS: LUNGS AND PLEURA: No opacities, masses or pneumothorax. No pleural effusion. MEDIASTINUM AND HILAR STRUCTURES: No masses or contour abnormality. HEART AND VASCULATURE: Cardiac enlargement. Vascular congestion. BONES: No acute findings. HARDWARE: None in the chest. OTHER: No other significant finding. IMPRESSION: CARDIAC ENLARGEMENT. VASCULAR CONGESTION. TECHNICAL DOCUMENTATION: JOB ID: [id number] 2010 [employer]- All Rights Reserved Reading location - IP/workstation name: [email or web address]
[2020-05-01] MEDS ORDERED: FUROSEMIDE INJ/PF 40 MG/4 ML SDV IV ONE (15:58)
[2020-05-01 16:52] LABS: APPEARANCE,URINE CLEAR; BILIRUBIN,URINE NEGATIVE (NEGATIVE); COLOR,URINE YELLOW; GLUCOSE, URINE NEGATIVE (NEGATIVE); KETONES,URINE NEGATIVE (NEGATIVE); LEUKOCYTE ESTERASE,URINE NEGATIVE (NEGATIVE); NITRITE,URINE NEGATIVE (NEGATIVE); PROTEIN,URINE 100 mg/dL (NEGATIVE); URINE SPECIFIC GRAVITY 1.019
--- NOTE | 2020-05-01 17:29 | EKG REPORT ---
SEVERITY:- ABNORMAL ECG - ATRIAL FIBRILLATION, V-RATE 74-152 LEFT AXIS DEVIATION LVH WITH SECONDARY REPOLARIZATION ABNORMALITY : Confirmed by: Shannon Pack MD 01-May-2020 17:28:46
--- NOTE | 2020-05-01 18:10 | RADIOLOGY REPORT (SQ) ---
EXAM DESCRIPTION: CT ABD/PELVIS WITH IV ORAL IMAGES COMPLETED DATE/TIME: 05/01/2020 4:36 pm REASON FOR STUDY: pain/ fullness. Persistent back pain. Currently on anti coagulation. COMPARISON: 03/02/2019 TECHNIQUE: CT scan of the abdomen and pelvis performed using helical scanning technique with dynamic intravenous contrast injection. No oral contrast. Images reviewed with lung, soft tissue, and bone windows. Reconstructed coronal and sagittal MPR images reviewed. Delayed images for evaluation of the urinary system also acquired. All images stored on PACS. All CT scanners at this facility use dose modulation, iterative reconstruction, and/or weight based d osing when appropriate to reduce radiation dose to as low as reasonably achievable (ALARA). [facility]: Dose Right [facility]: CareDose [facility]: Dose Right [facility]: Teradose 4D [facility]: Bit9 CONTRAST TYPE AND DOSE: 100 mL Omnipaque 350- low osmolar. RENAL FUNCTION: GFR > 60. RADIATION DOSE: CT Rad equipment meets quality standard of care and radiation dose reduction techniq ues were employed. CTDIvol: 31.5 - 31.6 mGy. DLP: 3069 mGy-cm.. LIMITATIONS: There is beam hardening artifact secondary to patient's body habitus particularly throu gh the mid abdomen and pelvis. This limits evaluation of some organs. FINDINGS: LOWER CHEST: There is a small right pleural effusion with compressive atelectasis at the r ight lung base. LIVER: Shrunken nodular contour of the liver with mild diffuse hepatic steatosis. There is reflux of contrast into the hepatic veins. No definitive hepatic mass although portions of the anterior liver are poorly evaluated due to beam hardening. No biliary ductal dilation. SPLEEN: Normal size. No focal lesions. PANCREAS: No masses. No significant calcifications. No adjacent inflammation or peripancreatic fluid collections. Pancreatic duct not dilated. GALLBLADDER: No identified stones by CT criteria. No inflammatory changes to suggest cholecystitis. ADRENAL GLANDS: No significant masses or asymmetry. RIGHT KIDNEY AND URETER: No solid masses. No significant calcifications. No hydronephrosis or hyd roureter. LEFT KIDNEY AND URETER: No solid masses. No significant calcifications. No hydronephrosis or hydr oureter. AORTA AND VESSELS: No aneurysm. No dissection. Renal arteries, SMA, celiac without stenosis. RETROPERITONEUM: No retroperitoneal adenopathy, hemorrhage or masses. BOWEL AND PERITONEAL CAVITY: Limited evaluation of portions of the bowel due to beam hardening artifa ct and lack of inclusion of the anterior abdomen. There is no evidence of bowel obstruction. Small amount of ascites. Evaluation for pneumoperitoneum is extremely limited. APPENDIX: Normal. PELVIS: No mass. No free fluid. Normal bladder. ABDOMINAL WALL: Not visualized. BONES: No significant or acute findings. OTHER: No other significant finding. IMPRESSION: 1. Shrunken nodular contour of the liver suggesting underlying hepatic cirrhosis. There is mild hepa tic steatosis. Clinical correlation is recommended. 2. Small amount of ascites. TECHNICAL DOCUMENTATION: JOB ID: [id number] Quality ID # [id number]: Final reports with documentation of one or more dose reduction techniques (e.g., Au tomated exposure control, adjustment of the mA and/or kV according to patient size, use of iterative reconstruction technique) 2010 [employer]- All Rights Reserved Reading location - IP/workstation name: [email or web address]
[2020-05-01] MEDS ORDERED: BUTALB/ACETAMINOPHEN/CAFFEINE 1 TAB EACH PO ONE (18:54)
[2020-05-01] MEDS ORDERED: CLONIDINE HCL 0.1 MG TABLET PO ONE (19:08)
[2020-05-01 19:53] VITALS: BP 187/140
== END 2020-05-01 19:45 | disposition home or self-care (01) ==
LOC: ER 12:47
DX: R19.00 Intra-abdominal and pelvic swelling, mass and lump, unspecified site (principal); R60.0 Localized edema; R11.0 Nausea; R63.5 Abnormal weight gain; R53.81 Other malaise; Z88.0 Allergy status to penicillin; Z88.8 Allergy status to other drugs, medicaments and biological substances; I25.10 Atherosclerotic heart disease of native coronary artery without angina pectoris; I25.2 Old myocardial infarction; I10 Essential (primary) hypertension; E11.9 Type 2 diabetes mellitus without complications; J44.9 Chronic obstructive pulmonary disease, unspecified
CPT/HCPCS: 93005; 99285; 96374; 36415; 87086; 83690; 85025; 80053; 81001; 84484; 71045; 74177; 93010; A9270; J1940; J3490